=== PATIENT | male | born 1980 | race African-American/Black ===

== ENCOUNTER 2020-10-22 21:48 | Emergency (ER) | payer OTHER, SELFPAY ==
[2020-10-22 22:02] VITALS: BP 153/92; PULSE 114; RESP 20; TEMP 36.2; O2SAT 98; BMI 23.5
--- NOTE | 2020-10-22 22:25 | ED.PSYCH ---
HPI - Psych General Chief Complaint: Psychiatric Symptoms Stated Complaint: crisis Time Seen by Provider: 10/22/20 22:25 Source: patient Mode of arrival: EMS History of Present Illness HPI Narrative: This is a 39-year-old male without significant past medical history but significant psychiatric history of depression and prior suicidal attempt who is brought in by EMS after he presented to the police department stating that he was having suicidal thoughts with plans to cut his wrists. The exacerbating event is that his mother 3 days ago. He states that he was admitted and had a suicidal attempt approximately 2 years ago and was seen at [facility] at that time. He is not currently on antidepressant medications and has no other acute complaints. Related Data Allergies Allergy/AdvReac Type Severity Reaction Status Date / Time seafood Allergy Severe Anaphylaxis Verified 10/22/20 22:18 Review of Systems Review of Systems: Pertinent positives and negatives as stated in HPI 10 point review of systems otherwise negative. PMFSH Past Medical History Source: nursing notes reviewed Social History Social History Alcohol intake: current Alcohol intake frequency: a few times a week Alcohol type: beer Smoking Status: Never smoker Use of substances other than those prescribed or required for medical reasons: No Advance Directives: No Advance Directives Information Provided: Yes Physical Exam Vital Signs: Vital Signs: Last Vital Signs Temp 97.3 F 10/23/20 02:00 Pulse 87 10/23/20 02:00 Resp 18 10/23/20 02:00 BP 152/78 H 10/23/20 02:00 Pulse Ox 97 10/23/20 02:00 Body Mass Index 23.5 VITAL SIGNS: Reviewed. GENERAL: Well developed, well nourished, in no acute distress. OROPHARYNX: no oral lesions noted, posterior pharynx clear NECK: Supple, no adenopathy LUNGS: Normal breath sounds. No adventitious sounds or accessory muscle use. SpO2<98> CARDIOVASCULAR: Regular rate and rhythm without noted murmurs ABDOMEN: Soft, non-tender, non-distended with bowel sounds. SKIN: Inspection of the skin reveals no rashes NEUROLOGIC: Alert and oriented x 4 PSYCH: Tearful, depressive affect Course Course Course Narrative: This is a 39-year-old male with history and clinical presentation consistent with depression and suicidal ideation with a plan to cut his wrist. Patient was placed on one-to-one observation as well as a crisis consult and patient is currently medically cleared for further evaluation by crisis. In addition, a Section 12 was filled out. Sec12, Bed Search, COVID negative. MDM - Psych Lab Data Result diagrams: 10/22/20 22:52 10/22/20 22:52 Labs: Lab Results 10/22/20 10/22/20 10/22/20 Range/Units 22:52 22:52 22:52 WBC 10.6 (4.8-10.8) X10*3/uL RBC 5.29 (4.60-5.80) X10*6/uL Hgb 15.0 (14.0-18.0) g/dl Hct 45.8 (42-52) % MCV 86.6 (80-98) fL MCH 28.4 (27.0-33.0) pg MCHC 32.8 (31.0-36.0) g/dl RDW 13.2 (11.0-16.0) % Plt Count 314 (160-400) X10*3/uL MPV 9.5 (9.4-12.4) fL Immature Gran % (Auto) 0.2 (0.0-0.4) % Neut % (Auto) 79.9 H (45-73) % Lymph % (Auto) 15.3 L (20-40) % [place] % (Auto) 4.3 (2-11) % Eos % (Auto) 0.1 (0-4) % Baso % (Auto) 0.2 (0-2) % Lymph # (Auto) 1.6 (1.2-4.9) X10*3/uL [place] # (Auto) 0.5 (0.1-1.2) X10*3/uL Eos # (Auto) 0.0 (0.0-0.4) X10*3/uL Baso # (Auto) 0.0 (0.0-0.2) X10*3/uL Abs Immat Gran (auto) 0.02 (0.00-0.03) X10*3/uL Absolute Neuts (auto) 8.5 H (2.0-8.3) X10*3/uL Absolute Nucleated RBC 0.000 (0.0-0.012) X10*3/uL Nucleated RBC % (auto) 0.0 (0.0-0.2) /100WBC Sodium 142 (135-145) mmol/L Potassium 3.6 (3.3-5.1) mmol/L Chloride 105 (96-108) mmol/L Carbon Dioxide 27 (22-29) mmol/L Anion Gap 14 (12-20) BUN 7 L (9-16) mg/dL Creatinine 1.05 (0.5-1.4) mg/dL Estim Creat Clear Calc 89.1 Estimated GFR > 60 Random Glucose 79 (60-115) mg/dL Calcium 9.5 (8.4-10.2) mg/dL Total Bilirubin 0.7 (0.0-1.0) mg/dL AST 24 (5-37) U/L ALT 17 (0-40) U/L Alkaline Phosphatase 92 (39-117) U/L Total Protein 7.1 (6.5-8.0) g/dL Albumin 4.5 (3.5-5.0) g/dL Urine Color Urine Appearance Urine pH (5.0-8.0) Ur Specific [place] (1.005-1.025) Urine Protein (NEG-TRACE) MG/DL Urine Glucose (UA) (NEG) MG/DL Urine Ketones (NEG) MG/DL Urine Blood (NEG) Urine Nitrite (NEG) Ur Leukocyte Esterase (NEG) Salicylates < 5.0 L (15-30) mg/dL Urine Opiates Screen (Not Detect) Acetaminophen < 1 (<30) mcg/mL Ur Barbiturates Screen (Not Detect) Ur Phencyclidine Scrn (Not Detect) Ur Amphetamines Screen (Not Detect) U Benzodiazepines Scrn (Not Detect) Urine Cocaine Screen (Not Detect) U Marijuana (THC) Screen (Not Detect) Ethyl Alcohol < 10 mg/dL COVID-19 (SADIA) (Negative) COVID-19 Clin Com 10/23/20 10/23/20 10/23/20 Range/Units 00:56 00:58 00:58 WBC (4.8-10.8) X10*3/uL RBC (4.60-5.80) X10*6/uL Hgb (14.0-18.0) g/dl Hct (42-52) % MCV (80-98) fL MCH (27.0-33.0) pg MCHC (31.0-36.0) g/dl RDW (11.0-16.0) % Plt Count (160-400) X10*3/uL MPV (9.4-12.4) fL Immature Gran % (Auto) (0.0-0.4) % Neut % (Auto) (45-73) % Lymph % (Auto) (20-40) % [place] % (Auto) (2-11) % Eos % (Auto) (0-4) % Baso % (Auto) (0-2) % Lymph # (Auto) (1.2-4.9) X10*3/uL [place] # (Auto) (0.1-1.2) X10*3/uL Eos # (Auto) (0.0-0.4) X10*3/uL Baso # (Auto) (0.0-0.2) X10*3/uL Abs Immat Gran (auto) (0.00-0.03) X10*3/uL Absolute Neuts (auto) (2.0-8.3) X10*3/uL Absolute Nucleated RBC (0.0-0.012) X10*3/uL Nucleated RBC % (auto) (0.0-0.2) /100WBC Sodium (135-145) mmol/L Potassium (3.3-5.1) mmol/L Chloride (96-108) mmol/L Carbon Dioxide (22-29) mmol/L Anion Gap (12-20) BUN (9-16) mg/dL Creatinine (0.5-1.4) mg/dL Estim Creat Clear Calc Estimated GFR Random Glucose (60-115) mg/dL Calcium (8.4-10.2) mg/dL Total Bilirubin (0.0-1.0) mg/dL AST (5-37) U/L ALT (0-40) U/L Alkaline Phosphatase (39-117) U/L Total Protein (6.5-8.0) g/dL Albumin (3.5-5.0) g/dL Urine Color YELLOW Urine Appearance CLEAR Urine pH 7.0 (5.0-8.0) Ur Specific [place] 1.015 (1.005-1.025) Urine Protein NEG (NEG-TRACE) MG/DL Urine Glucose (UA) NEG (NEG) MG/DL Urine Ketones 40 (NEG) MG/DL Urine Blood NEG (NEG) Urine Nitrite NEG (NEG) Ur Leukocyte Esterase NEG (NEG) Salicylates (15-30) mg/dL Urine Opiates Screen Not Detected (Not Detect) Acetaminophen (<30) mcg/mL Ur Barbiturates Screen Not Detected (Not Detect) Ur Phencyclidine Scrn Not Detected (Not Detect) Ur Amphetamines Screen Not Detected (Not Detect) U Benzodiazepines Scrn Not Detected (Not Detect) Urine Cocaine Screen POSITIVE H (Not Detect) U Marijuana (THC) Screen POSITIVE H (Not Detect) Ethyl Alcohol mg/dL COVID-19 (SADIA) Negative (Negative) COVID-19 Clin Com See Note
[2020-10-22 22:57] LABS: MANUAL DIFF FLAG NO
[2020-10-22 22:58] LABS: Basophils Percent Auto 0.2 % (0-2); Eosinophils Percent Auto 0.1 % (0-4); Hematocrit 45.8 % (42-52); Imm Gran Abs Auto 0.02 X10*3/uL (0.00-0.03); Imm Gran Pct Auto 0.2 % (0.0-0.4); Lymphocytes Absolute Auto 1.6 X10*3/uL (1.2-4.9); Lymphocytes Percent Auto 15.3 % (20-40); Mean Corpuscular HGB Conc 32.8 g/dl (31.0-36.0); Mean Corpuscular Hemoglobin 28.4 pg (27.0-33.0); Mean Corpuscular Volume 86.6 fL (80-98); Mean Platelet Volume 9.5 fL (9.4-12.4); Monocytes Absolute Auto 0.5 X10*3/uL (0.1-1.2); Monocytes Percent Auto 4.3 % (2-11); Neutrophils Absolute Auto 8.5 X10*3/uL (2.0-8.3); Neutrophils Percent Auto 79.9 % (45-73); Platelet Count 314 X10*3/uL (160-400); Red Blood Count 5.29 X10*6/uL (4.60-5.80); Red Cell Distribution Width 13.2 % (11.0-16.0); White Blood Count 10.6 X10*3/uL (4.8-10.8)
[2020-10-22 23:25] LABS: Ethanol < 10 mg/dL
[2020-10-22 23:30] LABS: Acetaminophen LAB < 1 mcg/mL (<30); Alanine Aminotransferase 17 U/L (0-40); Albumin Level 4.5 g/dL (3.5-5.0); Alkaline Phosphatase 92 U/L (39-117); Anion Gap 14 (12-20); Aspartate Amino Transferase 24 U/L (5-37); Bilirubin Total 0.7 mg/dL (0.0-1.0); Blood Urea Nitrogen 7 mg/dL (9-16); Calcium 9.5 mg/dL (8.4-10.2); Carbon Dioxide 27 mmol/L (22-29); Chloride 105 mmol/L (96-108); Creatinine Clr Calc Pharmacy 89.1; Estimated Glomerular Filt Rate > 60; Glucose Random 79 mg/dL (60-115); Potassium 3.6 mmol/L (3.3-5.1); Salicylate < 5.0 mg/dL (15-30); Sodium 142 mmol/L (135-145); Total Protein 7.1 g/dL (6.5-8.0)
[2020-10-23 01:07] LABS: Glucose Urine UA NEG (NEG); Leukocyte Esterase Urine NEG (NEG); Nitrite Urine NEG (NEG); Specific Gravity - Urine 1.015 (1.005-1.025); Urine Blood NEG (NEG); Urine Ketones 40 MG/DL (NEG); Urine Protein NEG (NEG-TRACE)
[2020-10-23 01:08] LABS: Appearance Urine CLEAR; Color Urine YELLOW; UACC Culture Trigger NO
[2020-10-23 01:22] LABS: COVID-19 Test Negative (Negative); IDNOW Serial# 9DD0AD1C
[2020-10-23 01:30] LABS: Amphetamine Screen Urine Not Detected (Not Detect); Barbiturates, Urine Not Detected (Not Detect); Benzodiazepines Screen Urine Not Detected (Not Detect); Cannabinoid Screen Urine POSITIVE (Not Detect); Cocaine Screen Urine POSITIVE (Not Detect); Opiate Screen Urine Not Detected (Not Detect); Phencyclidine Screen Urine Not Detected (Not Detect)
[2020-10-23 02:00] VITALS: BP 152/78; PULSE 87; RESP 18; TEMP 36.3; O2SAT 97
[2020-10-23 08:39] VITALS: BP 110/63; PULSE 74; RESP 16; TEMP 36.6; O2SAT 99
[2020-10-23 12:25] VITALS: BP 112/68; PULSE 72; RESP 16; TEMP 37.1; O2SAT 98
[2020-10-23 14:53] VITALS: BP 101/53; PULSE 68; RESP 16; TEMP 37.1; O2SAT 97
--- NOTE | 2020-10-23 17:23 | PC.NURSE ---
N requested labs and nurses notes to be faxed to them. Information faxed as requested
[2020-10-23 17:51] VITALS: BP 103/72; PULSE 70; RESP 18; TEMP 37.3; O2SAT 98
[2020-10-23 20:39] VITALS: BP 101/62; PULSE 74; RESP 18; TEMP 37.1; O2SAT 98
--- NOTE | 2020-10-23 22:57 | PC.NURSE ---
Pt resting throughout the evening and had denied any/all complaints. Pt eating and drinking throughout the evening. Pt now awake, expressing frustration that he remains in the culver without a bed. Pt states People who have got here after me have gone up, I'm just sitting here with the lights in my eyes! I can't take it anymore!! [address] RN at this time.
--- NOTE | 2020-10-23 23:23 | PC.NURSE ---
Report received. PT is sleeping in bed. Respirations even and unlabored. Inpatient bed search in progress
--- NOTE | 2020-10-24 09:51 | PC.NURSE ---
aptu to call for nurse to nurse
--- NOTE | 2020-10-24 10:30 | PC.NURSE ---
pt aware of plan of care, resting quietly no obvious distress
--- NOTE | 2020-10-24 10:48 | PC.NURSE ---
report given to aptu at [facility] to martin yanez. requesting section 12 prior to arrival time.
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
--- NOTE | 2020-10-24 13:51 | PC.NURSE ---
report of this patient was called to act 2 by vazquez salazar
== END 2020-10-24 13:51 | disposition skilled nursing facility (03) ==
PROVIDERS: Emergency Provider Student in an Organized Health Care Education/Training Program
DX: F32.9 Major depressive disorder, single episode, unspecified (principal); R45.851 Suicidal ideations; Z72.89 Other problems related to lifestyle; Z63.4 Disappearance and death of family member; Z91.5 Personal history of self-harm; Z20.822 Contact with and (suspected) exposure to COVID-19
CPT/HCPCS: 36415; 80053; 80143; 80179; 80307; 80320; 81003; 85025; 87635; 99285

== ENCOUNTER 2023-01-21 23:00 | Inpatient (IN) | payer OTHER, SELFPAY ==
[2023-01-21 23:15] VITALS: BP 123/68; PULSE 74; RESP 16; TEMP 36.4; O2SAT 99
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
[2023-01-22 09:56] LABS: Estimated Average Glucose 108 mg/dL; Hemoglobin A1c % 5.4 %
[2023-01-22 09:57] VITALS: BP 125/74; PULSE 72; RESP 16; TEMP 37.7; O2SAT 96
[2023-01-22 10:30] LABS: Alanine Aminotransferase 40 U/L (0-40); Alkaline Phosphatase 155 U/L (39-117); Anion Gap 10 (12-20); Aspartate Amino Transferase 26 U/L (5-37); Bilirubin Total 0.4 mg/dL (0.0-1.0); Blood Urea Nitrogen 7 mg/dL (9-16); Calcium 9.6 mg/dL (8.4-10.2); Carbon Dioxide 26 mmol/L (22-29); Chloride 109 mmol/L (96-108); Cholesterol 167 mg/dL; Estimated Glomerular Filt Rate > 60; Glucose Fasting 95 mg/dL (60-99); HDL Cholesterol 68 mg/dL; LDL Cholesterol Calculated 86 mg/dl; Potassium 4.7 mmol/L (3.3-5.1); Sodium 140 mmol/L (135-145); Total Protein 6.8 g/dL (6.5-8.0); Triglycerides 68 mg/dL
[2023-01-22] MEDS: Acetaminophen 325 MG TABLET 650 MG PO (10:33)
[2023-01-22] MEDS: LORazepam 1 MG TABLET PO ×2 (10:33→20:13)
[2023-01-22 10:53] LABS: Folate 12.3 ng/mL (> or = 4.0); Free T4 (Free Thyroxine) 0.75 ng/dL (0.71-1.85); Thyroid Stimulating Hormone 0.59 uIU/mL (0.32-4.0); Vitamin B12 219 pg/mL (200-900)
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
--- NOTE | 2023-01-22 13:50 | P.HPPS_ITS ---
HPI Date of Service: 01/22/23 Chief Complaint: Major Depressive D/O, Cocaine Use D/O, Cannabis Sources of Information: patient interviewed, chart reviewed and crisis/core team assessment reviewed HPI Subjective Notes: Betancourt Warning and Conditional Voluntary Healthcare Proxy: No Guardianship: No Medical Problems Affecting Mental Status: No Narrative: 42 yo male, hx of depression, polysubstance addiction, transfer from [facility] with an increase in SI with a plan to cut himself. Reports an increase in sx ~16 days. Currently off meds. Reports heroin-1.5 bundles daily, fentanyl, cocaine, alcohol use. States he is homeless, has been living on the [address] since he left mother's home. Reports allergy sx with congestion and is hearing the voice of his grandmother. Pt seen in bed today. He is in withdrawal and has URI/Allergy sx. He asks for a consult for Methadone initiation. Reports hx of sydnie with impulsivity, elevation of mood, rapid speech and racing of thoughts. Currently with anergy, anhedonia Past Psychiatric History: IP: Reports several, mostly with [facility], [facility] OP: None currently SA: Several Medical Evaluation Reviewed: Hospitalist Bulmaro Pending [facility] Medical History (Updated 01/22/23 @ 18:06 by Mitzy Rosas, NILDA) Cannabis use disorder Cocaine use disorder Mood disorder Opioid use disorder Family History: Depression Substance History: Heroin- 1.5 bundles daily cocaine- 09/22th daily Nicotine Toxicology positvie for barbiturate and cannabis. Trauma History: Affirms Diagnostics Vital Signs (24Hr): Vital Signs - 24 hr 01/21/23 23:15 01/22/23 09:57 Temperature 97.6 F 100 F Pulse Rate 74 72 Respiratory Rate 16 16 Blood Pressure 123/68 125/74 Pulse Oximetry 99 96 Oxygen Delivery Method Room Air Room Air Labs 01/22/23 08:57 Labs: Laboratory Results - last 48 hr 01/22/23 01/22/23 08:57 08:57 Sodium 140 Potassium 4.7 D Chloride 109 H Carbon Dioxide 26 Anion Gap 10 L BUN 7 L Creatinine 0.87 Estim Creat Clear Calc TNP Estimated GFR > 60 Fasting Glucose 95 Estimat Average Glucose 108 Hemoglobin A1c % 5.4 Calcium 9.6 Total Bilirubin 0.4 AST 26 ALT 40 Alkaline Phosphatase 155 H Total Protein 6.8 Albumin 4.0 Triglycerides 68 Cholesterol 167 LDL Cholesterol, Calc 86 HDL Cholesterol 68 Vitamin B12 219 Folate 12.3 TSH 0.59 Free T4 0.75 Meds/Allergies Meds Home Medications Medication Instructions Recorded Confirmed Type No Known Home Meds 10/23/20 01/22/23 History Allergies Allergies Allergy/AdvReac Type Severity Reaction Status Date / Time seafood Allergy Severe Anaphylaxis Verified 10/22/20 22:18 Mental Status Exam Mental Status Exam Patient Appearance: Fatigued Patient Orientation: Person, Place, Time and Situation Level of Consciousness: Alert Patient Behavior: Appropriate, Talkative, Cooperative and Good Eye Contact Mood Description: Depressed Affect Description: Flat Patient Cognition Impaired: No Ability to Follow Directions: Good Speech Pattern: Spontaneous Speech Memory Description: Intact Hallucinations: Auditory Delusions: Paranoid Ideation and Present Perceptual Disturbances: Depersonalization and Derealization Thought Process: Rumination Thought Content: positive for Circumstantial and positive for Suicidal Ideation Depressive Symptoms: Increased Anxiety, Hopelessness, Unhappiness, Thoughts of /Suicide and Difficulty Concentrating Judgement: Fair Assessment & Plan Assessment & Plan (1) Mood disorder: Status: Acute Code(s): F39 - Unspecified mood [affective] disorder (2) Opioid use disorder: Status: Acute Code(s): F11.90 - Opioid use, unspecified, uncomplicated (3) Cocaine use disorder: Status: Acute Code(s): F14.10 - Cocaine abuse, uncomplicated (4) Cannabis use disorder: Status: Acute Code(s): F12.90 - Cannabis use, unspecified, uncomplicated Plan 42 yo male, hx of polysubstance use d/o, mood disorder with psychotic features vs substance induced psychosis with SI and homelessness. Pt asks for consult to begin Methadone, to go to [facility] and review medications. Plan: Continue current regime Complete detox, evaluate efficacy of regime Addiction consult- pt wanting to return to Methadone CIWA, Lorazepam prn Thiamine, Folic Acid and MVI Claritin 10 mg daily Aftercare planning, ?CSS Patient educated on: medication risk/benefits, therapeutic strategies and medical condition Informed Consent: understands Reason for continued inpatient stay Substantial Risk for: harm to self, inability to function, rapid decompensation and med/psych decompensation Statement Statement: I have reviewed the history and physical and performed a pertinent examination on my patient. No changes have occurred unless specified. If the History and Physical was not performed prior to admission, the Hospitalist's service will be consulted for completing the admission physical. Time Spent With Patient Time: Total time managing care of this patient today ____ minutes.
[2023-01-22] MEDS: Loratadine 10 MG TABLET PO (14:57)
[2023-01-22 17:00] VITALS: BP 121/69; PULSE 88; RESP 16; TEMP 37.2; O2SAT 97
[2023-01-22] MEDS: traZODone HCL 50 MG TABLET PO (20:13)
[2023-01-22] MEDS: Mirtazapine 15 MG TABLET PO (20:13)
[2023-01-23] MEDS: Multivitamin TABLET 1 TAB PO (08:27)
[2023-01-23] MEDS: Loratadine 10 MG TABLET PO (08:27)
[2023-01-23] MEDS: Thiamine HCL 100 MG TABLET PO (08:27)
[2023-01-23] MEDS: Folic Acid 1 MG TABLET PO (08:27)
[2023-01-23 08:43] VITALS: BP 126/78; PULSE 80; RESP 16; TEMP 37; O2SAT 99
--- NOTE | 2023-01-23 08:56 | MHC.RECOVRN ---
Met with pt in 511 after consult placed to Addiction Medicine for pt request to initiate methadone. Pt laying in bed, difficult to engage in conversation, irritable. Pt appears to be comfortable physically, however, continually pulls sheets over face during conversation. Pt reports using heroin, 1-1.5 bundles daily, IN, denies using other substances. Reports last use was 3-4 days ago. Pt states I'm sick. My whole body hurts. Pt reports hx methadone, [address] [facility]. Pt denies hx Suboxone, when asked if interested pt states I don't care. T/w spoke with nursing at [facility] pt had been receiving 60 mg take home bottles, last on 02/21/22 with doses through 02/27/22. Pt became inactive in May 2022. Discussed with pts RN, who reports pt reported nausea yesterday but has not witnessed other OWS. Ricarda Washburn APRN, aware.
--- NOTE | 2023-01-23 10:10 | HO.PSYCHPN ---
Subjective Subjective Date of Service: 01/23/23 Reason For Visit: Major Depressive D/O, Cocaine Use D/O, Cannabis Subjective Notes: Conditional Voluntary Healthcare Proxy: No Guardianship: No Medical Problems Affecting Mental Status: No Interim History: Reports feeling improved. Began Methadone today with consult from Addictions team. Discussing CSS requests. Medication review, symptom review. Will increase Mirtazapine. Reviewed substance use history. Currently a ~24 month opiate addiction 1.5 bundles daily. Beginning to interact in the milieu with peers. Reports feeling safe and supported. Medication Compliance: Yes Side effects from medications: No Attending Groups: Yes Review of Systems Acute medical concerns: No Medical Review of Systems: unchanged Mental Status Exam Mental Status Exam Patient Appearance: Appropriate Patient Orientation: Person, Place, Time and Situation Level of Consciousness: Alert Patient Behavior: Appropriate, Talkative, Cooperative and Good Eye Contact Mood Description: Constricted Affect Description: Constricted Patient Cognition Impaired: No Ability to Follow Directions: Good Speech Pattern: Spontaneous Speech Memory Description: Intact Hallucinations: None Delusions: Not Present Thought Process: Intact and Goal Oriented Thought Content: positive for Intact, positive for [place], positive for Circumstantial and positive for Suicidal Ideation (denies today) Depressive Symptoms: Muscle Pain, Increased Fatigue and Loss of Energy Judgement: Good Diagnostics Vital Signs (24Hr): Vital Signs - 24 hr 01/22/23 17:00 01/23/23 08:43 Temperature 98.9 F 98.6 F Pulse Rate 88 80 Respiratory Rate 16 16 Blood Pressure 121/69 126/78 Pulse Oximetry 97 99 Oxygen Delivery Method Room Air Room Air Labs 01/22/23 08:57 Labs: Laboratory Results - last 48 hr 01/22/23 01/22/23 08:57 08:57 Sodium 140 Potassium 4.7 D Chloride 109 H Carbon Dioxide 26 Anion Gap 10 L BUN 7 L Creatinine 0.87 Estim Creat Clear Calc TNP Estimated GFR > 60 Fasting Glucose 95 Estimat Average Glucose 108 Hemoglobin A1c % 5.4 Calcium 9.6 Total Bilirubin 0.4 AST 26 ALT 40 Alkaline Phosphatase 155 H Total Protein 6.8 Albumin 4.0 Triglycerides 68 Cholesterol 167 LDL Cholesterol, Calc 86 HDL Cholesterol 68 Vitamin B12 219 Folate 12.3 TSH 0.59 Free T4 0.75 Medications Medications Current Medications Acetaminophen (Acetaminophen 325 Mg Tablet) 650 mg PO Q6H PRN PRN Reason: Headache/Pain Mild Scale (1-3) Last Admin: 01/22/23 10:33 Dose: 650 mg Al Hydroxide/Mg Hydroxide (Magnesium Hydrox/Alum Hydrox 30 Ml Oral.Susp) 30 ml PO Q6H PRN PRN Reason: Heartburn/Nausea Clonidine HCl (Clonidine Hcl 0.1 Mg Tablet) 0.1 mg PO Q2H PRN; Protocol PRN Reason: SBP > 150 Dicyclomine HCl (Dicyclomine Hcl 10 Mg Capsule) 10 mg PO QIDACHS PRN PRN Reason: cramping Folic Acid (Folic Acid 1 Mg Tablet) 1 mg PO DAILY COUNTS INCLUDE 234 BEDS AT THE [facility] Last Admin: 01/23/23 08:27 Dose: 1 mg Hydroxyzine HCl (Hydroxyzine Hcl 25 Mg Tablet) 25 mg PO Q6H PRN PRN Reason: Anxiety Ibuprofen (Ibuprofen 800 Mg Tablet) 800 mg PO Q8H PRN PRN Reason: aches/pains Loratadine (Loratadine 10 Mg Tablet) 10 mg PO DAILY COUNTS INCLUDE 234 BEDS AT THE [facility] Last Admin: 01/23/23 08:27 Dose: 10 mg Lorazepam (Lorazepam 1 Mg Tablet) 1 mg PO Q4H PRN PRN Reason: withdrawal sx Last Admin: 01/22/23 20:13 Dose: 1 mg Magnesium Hydroxide (Milk Of Magnesia 30 Ml Oral.Susp) 30 ml PO DAILY PRN PRN Reason: Constipation Mirtazapine (Mirtazapine 15 Mg Tablet) 15 mg PO BEDTIME COUNTS INCLUDE 234 BEDS AT THE [facility] Last Admin: 01/22/23 20:13 Dose: 15 mg Multivitamins/Vitamin C (Multivitamin Tablet) 1 tab PO DAILY COUNTS INCLUDE 234 BEDS AT THE [facility] Last Admin: 01/23/23 08:27 Dose: 1 tab Nicotine Polacrilex (Nicotine Polacrilex 2 Mg Gum) 4 mg BUCCAL Q2H PRN PRN Reason: Nicotine Cravings Thiamine HCl (Thiamine Hcl 100 Mg Tablet) 100 mg PO DAILY COUNTS INCLUDE 234 BEDS AT THE [facility] Last Admin: 01/23/23 08:27 Dose: 100 mg Trazodone HCl (Trazodone Hcl 50 Mg Tablet) 50 mg PO BEDTIME MRX1 PRN PRN Reason: Insomnia Last Admin: 01/22/23 20:13 Dose: 50 mg Allergies Allergies Allergy/AdvReac Type Severity Reaction Status Date / Time seafood Allergy Severe Anaphylaxis Verified 10/22/20 22:18 Assessment & Plan Assessment & Plan (1) Mood disorder: Status: Acute Code(s): F39 - Unspecified mood [affective] disorder (2) Opioid use disorder: Status: Acute Code(s): F11.90 - Opioid use, unspecified, uncomplicated (3) Cocaine use disorder: Status: Acute Code(s): F14.10 - Cocaine abuse, uncomplicated (4) Cannabis use disorder: Status: Acute Code(s): F12.90 - Cannabis use, unspecified, uncomplicated Plan 42 yo male, hx of polysubstance use d/o, mood disorder with psychotic features vs substance induced psychosis with SI and homelessness. Pt asks for consult to begin Methadone, to go to [facility] and review medications. Plan: Continue current regime Complete detox, evaluate efficacy of regime Addiction consult- pt wanting to return to Methadone CIWA, Lorazepam prn Thiamine, Folic Acid and MVI Claritin 10 mg daily Aftercare planning, ?CSS 01/23/23: Increase Mirtazapine to 22.5 mg HS Patient educated on: medication risk/benefits and therapeutic strategies Informed Consent: understands Reason for continued inpatient stay Substantial Risk for: rapid decompensation Time Spent With Patient Time: Total time managing care of this patient today ____ minutes.
[2023-01-23] MEDS: methADONE HCl 20 MG/2 ML ORAL.CONC PO (10:50)
[2023-01-23 11:33] LABS: Amphetamine Screen Urine Not Detected (Not Detect); Barbiturates, Urine Not Detected (Not Detect); Benzodiazepines Screen Urine Not Detected (Not Detect); Cannabinoid Screen Urine POSITIVE (Not Detect); Cocaine Screen Urine POSITIVE (Not Detect); Fentanyl, urine POSITIVE (Not Detect); Opiate Screen Urine Not Detected (Not Detect); Phencyclidine Screen Urine Not Detected (Not Detect)
[2023-01-23] MEDS: cloNIDine HCL 0.1 MG TABLET PO (12:48)
[2023-01-23 12:49] VITALS: BP 170/112; PULSE 112
--- NOTE | 2023-01-23 13:12 | MHC.RECOVRN ---
Met with pt to follow up after methadone initiation. Pt reports feeling much better, denies withdrawal symptoms, is alert, easily engages in conversation, very pleasant. Pt reports desire to continue methadone titration and return to [facility]. Pts preference for placement after C is [facility] in [place] but is willing to go to any residential program. Pt reports having been in recovery for a period of time last year while at [facility], was working and doing well. Pt reports he lost his job which in turn created distress and led to pts recurrence at the end of the year. Pt states I didn't talk to anyone like I should have, I tried to handle it on my own. Pt future oriented and looking forward to recovery. Pt denies questions or concerns at this time. Discussed with Ricarda Washburn APRN.
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
[2023-01-23 16:16] VITALS: RESP 16
[2023-01-23] MEDS: traZODone HCL 50 MG TABLET PO (19:17)
[2023-01-23] MEDS: LORazepam 1 MG TABLET PO (19:17)
[2023-01-23] MEDS: hydrOXYzine HCL 25 MG TABLET PO (19:18)
[2023-01-23] MEDS: Mirtazapine 7.5 MG TABLET 22.5 MG PO (19:18)
[2023-01-24] MEDS: Multivitamin TABLET 1 TAB PO (08:31)
[2023-01-24] MEDS: Folic Acid 1 MG TABLET PO (08:31)
[2023-01-24] MEDS: Loratadine 10 MG TABLET PO (08:31)
[2023-01-24] MEDS: methADONE HCl 20 MG/2 ML ORAL.CONC 30 MG PO (08:31)
[2023-01-24] MEDS: Thiamine HCL 100 MG TABLET PO (08:31)
[2023-01-24 08:34] VITALS: BP 117/60; PULSE 71; RESP 18; TEMP 37.3; O2SAT 100
--- NOTE | 2023-01-24 08:57 | HO.PSYCHPN ---
Subjective Subjective Date of Service: 01/24/23 Reason For Visit: Major Depressive D/O, Cocaine Use D/O, Cannabis Subjective Notes: Conditional Voluntary Healthcare Proxy: No Guardianship: No Interim History: Pt seen reviewed with team He reports feeling improved. Interactive with peers and in the milieu. Finds Methadone helpful in sx mgt. Medication Compliance: Yes Side effects from medications: No Attending Groups: Intermittent Review of Systems Acute medical concerns: No Mental Status Exam Mental Status Exam Patient Appearance: Appropriate Patient Orientation: Person, Place, Time and Situation Level of Consciousness: Alert Patient Behavior: Appropriate, Talkative, Cooperative and Good Eye Contact Mood Description: Constricted Affect Description: Constricted Patient Cognition Impaired: No Ability to Follow Directions: Good Speech Pattern: Spontaneous Speech Memory Description: Intact Hallucinations: None Delusions: Not Present Thought Process: Intact and Goal Oriented Thought Content: positive for Intact, positive for [place], positive for Circumstantial and positive for Suicidal Ideation (denies today) Depressive Symptoms: Muscle Pain, Increased Fatigue and Loss of Energy Judgement: Good Diagnostics Vital Signs (24Hr): Vital Signs - 24 hr 01/23/23 12:49 01/23/23 16:16 01/24/23 08:34 Temperature 99.1 F Pulse Rate 112 H 71 Respiratory Rate 16 18 Blood Pressure 170/112 H 117/60 Pulse Oximetry 100 Oxygen Delivery Method Room Air Labs 01/22/23 08:57 Labs: Laboratory Results - last 48 hr 01/22/23 01/22/23 01/23/23 08:57 08:57 11:09 Sodium 140 Potassium 4.7 D Chloride 109 H Carbon Dioxide 26 Anion Gap 10 L BUN 7 L Creatinine 0.87 Estim Creat Clear Calc TNP Estimated GFR > 60 Fasting Glucose 95 Estimat Average Glucose 108 Hemoglobin A1c % 5.4 Calcium 9.6 Total Bilirubin 0.4 AST 26 ALT 40 Alkaline Phosphatase 155 H Total Protein 6.8 Albumin 4.0 Triglycerides 68 Cholesterol 167 LDL Cholesterol, Calc 86 HDL Cholesterol 68 Vitamin B12 219 Folate 12.3 TSH 0.59 Free T4 0.75 Urine Opiates Screen Not Detected Urine Fentanyl Screen POSITIVE H Ur Barbiturates Screen Not Detected Ur Phencyclidine Scrn Not Detected Ur Amphetamines Screen Not Detected U Benzodiazepines Scrn Not Detected Urine Cocaine Screen POSITIVE H U Marijuana (THC) Screen POSITIVE H Medications Medications Current Medications Acetaminophen (Acetaminophen 325 Mg Tablet) 650 mg PO Q6H PRN PRN Reason: Headache/Pain Mild Scale (1-3) Last Admin: 01/22/23 10:33 Dose: 650 mg Al Hydroxide/Mg Hydroxide (Magnesium Hydrox/Alum Hydrox 30 Ml Oral.Susp) 30 ml PO Q6H PRN PRN Reason: Heartburn/Nausea Clonidine HCl (Clonidine Hcl 0.1 Mg Tablet) 0.1 mg PO Q2H PRN; Protocol PRN Reason: SBP > 150 Last Admin: 01/23/23 12:48 Dose: 0.1 mg Dicyclomine HCl (Dicyclomine Hcl 10 Mg Capsule) 10 mg PO QIDACHS PRN PRN Reason: cramping Folic Acid (Folic Acid 1 Mg Tablet) 1 mg PO DAILY [facility] Last Admin: 01/24/23 08:31 Dose: 1 mg Hydroxyzine HCl (Hydroxyzine Hcl 25 Mg Tablet) 25 mg PO Q6H PRN PRN Reason: Anxiety Last Admin: 01/23/23 19:18 Dose: 25 mg Ibuprofen (Ibuprofen 800 Mg Tablet) 800 mg PO Q8H PRN PRN Reason: aches/pains Loratadine (Loratadine 10 Mg Tablet) 10 mg PO DAILY [facility] Last Admin: 01/24/23 08:31 Dose: 10 mg Lorazepam (Lorazepam 1 Mg Tablet) 1 mg PO Q4H PRN PRN Reason: withdrawal sx Last Admin: 01/23/23 19:17 Dose: 1 mg Magnesium Hydroxide (Milk Of Magnesia 30 Ml Oral.Susp) 30 ml PO DAILY PRN PRN Reason: Constipation Methadone HCl (Methadone Hcl 20 Mg/2 Ml Oral.Conc) 30 mg PO DAILY [facility] Last Admin: 01/24/23 08:31 Dose: 30 mg Mirtazapine (Mirtazapine 7.5 Mg Tablet) 22.5 mg PO BEDTIME [facility] Last Admin: 01/23/23 19:18 Dose: 22.5 mg Multivitamins/Vitamin C (Multivitamin Tablet) 1 tab PO DAILY [facility] Last Admin: 01/24/23 08:31 Dose: 1 tab Nicotine Polacrilex (Nicotine Polacrilex 2 Mg Gum) 4 mg BUCCAL Q2H PRN PRN Reason: Nicotine Cravings Thiamine HCl (Thiamine Hcl 100 Mg Tablet) 100 mg PO DAILY [facility] Last Admin: 01/24/23 08:31 Dose: 100 mg Trazodone HCl (Trazodone Hcl 50 Mg Tablet) 50 mg PO BEDTIME MRX1 PRN PRN Reason: Insomnia Last Admin: 01/23/23 19:17 Dose: 50 mg Allergies Allergies Allergy/AdvReac Type Severity Reaction Status Date / Time seafood Allergy Severe Anaphylaxis Verified 10/22/20 22:18 Assessment & Plan Assessment & Plan (1) Mood disorder: Status: Acute Code(s): F39 - Unspecified mood [affective] disorder (2) Opioid use disorder: Status: Acute Code(s): F11.90 - Opioid use, unspecified, uncomplicated (3) Cocaine use disorder: Status: Acute Code(s): F14.10 - Cocaine abuse, uncomplicated (4) Cannabis use disorder: Status: Acute Code(s): F12.90 - Cannabis use, unspecified, uncomplicated Plan 42 yo male, hx of polysubstance use d/o, mood disorder with psychotic features vs substance induced psychosis with SI and homelessness. Pt asks for consult to begin Methadone, to go to [facility] and review medications. Plan: Continue current regime Complete detox, evaluate efficacy of regime Addiction consult- pt wanting to return to Methadone CIWA, Lorazepam prn Thiamine, Folic Acid and MVI Claritin 10 mg daily Aftercare planning, ?CSS 01/23/23: Increase Mirtazapine to 22.5 mg HS 01/24/23: Continue current regime and plan of care Patient educated on: medication risk/benefits and therapeutic strategies Informed Consent: understands Reason for continued inpatient stay Substantial Risk for: rapid decompensation Time Spent With Patient Time: Total time managing care of this patient today ____ minutes.
[2023-01-24] MEDS: Ibuprofen 800 MG TABLET PO (10:30)
[2023-01-24] MEDS: LORazepam 1 MG TABLET PO ×3 (10:30→19:39)
[2023-01-24] MEDS: Cyclobenzaprine HCl 10 MG TABLET PO (17:38)
[2023-01-24 18:00] VITALS: BP 146/69; PULSE 89; TEMP 36.4; O2SAT 99
[2023-01-24] MEDS: Mirtazapine 7.5 MG TABLET 22.5 MG PO (19:36)
[2023-01-24] MEDS: traZODone HCL 50 MG TABLET PO (19:36)
[2023-01-25] MEDS: Loratadine 10 MG TABLET PO (08:17)
[2023-01-25] MEDS: methADONE HCl 20 MG/2 ML ORAL.CONC 30 MG PO (08:17)
[2023-01-25] MEDS: Thiamine HCL 100 MG TABLET PO (08:17)
[2023-01-25] MEDS: Multivitamin TABLET 1 TAB PO (08:17)
[2023-01-25] MEDS: Folic Acid 1 MG TABLET PO (08:18)
[2023-01-25 09:10] VITALS: BP 107/62; PULSE 77; RESP 18; TEMP 36.2; O2SAT 100
--- NOTE | 2023-01-25 10:35 | PM.EVENT ---
Event Note Date of Service: 01/25/23 Event Note: chart reviewed-- methadone 10mg now methadone 45mg in AM Time Spent With Patient Time: Total time managing care of this patient today ____ minutes.
[2023-01-25] MEDS: methADONE HCl 20 MG/2 ML ORAL.CONC 10 MG PO (11:07)
[2023-01-25] MEDS: LORazepam 1 MG TABLET PO ×2 (14:49→20:23)
--- NOTE | 2023-01-25 17:48 | HO.PSYCHPN ---
Subjective Subjective Date of Service: 01/25/23 Reason For Visit: Major Depressive D/O, Cocaine Use D/O, Cannabis Subjective Notes: Conditional Voluntary Healthcare Proxy: No Guardianship: No Medical Problems Affecting Mental Status: No Interim History: Pt seen, reviewed in team. Team report some difficulty with sleep. Pt denies, states at times by history he has done sleep walking, but believes he slept well and is feeling rested and well. Medication Compliance: Yes Side effects from medications: No Attending Groups: Intermittent Review of Systems Acute medical concerns: No Medical Review of Systems: unchanged Mental Status Exam Mental Status Exam Patient Appearance: Appropriate Patient Orientation: Person, Place, Time and Situation Level of Consciousness: Alert Patient Behavior: Appropriate, Talkative, Cooperative and Good Eye Contact Mood Description: Constricted Affect Description: Constricted Patient Cognition Impaired: No Ability to Follow Directions: Good Speech Pattern: Spontaneous Speech Memory Description: Intact Hallucinations: None Delusions: Not Present Thought Process: Intact and Goal Oriented Thought Content: positive for Intact, positive for [place], positive for Circumstantial and positive for Suicidal Ideation (denies today) Depressive Symptoms: Muscle Pain, Increased Fatigue and Loss of Energy Judgement: Good Diagnostics Vital Signs (24Hr): Vital Signs - 24 hr 01/24/23 18:00 01/25/23 09:10 Temperature 97.5 F 97.1 F Pulse Rate 89 77 Respiratory Rate 18 Blood Pressure 146/69 H 107/62 Pulse Oximetry 99 100 Oxygen Delivery Method Room Air Room Air Labs 01/22/23 08:57 Medications Medications Current Medications Acetaminophen (Acetaminophen 325 Mg Tablet) 650 mg PO Q6H PRN PRN Reason: Headache/Pain Mild Scale (1-3) Last Admin: 01/22/23 10:33 Dose: 650 mg Al Hydroxide/Mg Hydroxide (Magnesium Hydrox/Alum Hydrox 30 Ml Oral.Susp) 30 ml PO Q6H PRN PRN Reason: Heartburn/Nausea Clonidine HCl (Clonidine Hcl 0.1 Mg Tablet) 0.1 mg PO Q2H PRN; Protocol PRN Reason: SBP > 150 Last Admin: 01/23/23 12:48 Dose: 0.1 mg Cyclobenzaprine HCl (Cyclobenzaprine Hcl 10 Mg Tablet) 10 mg PO BID PRN PRN Reason: Muscle Spasm Last Admin: 01/24/23 17:38 Dose: 10 mg Dicyclomine HCl (Dicyclomine Hcl 10 Mg Capsule) 10 mg PO QIDACHS PRN PRN Reason: cramping Folic Acid (Folic Acid 1 Mg Tablet) 1 mg PO DAILY [facility] Last Admin: 01/25/23 08:18 Dose: 1 mg Hydroxyzine HCl (Hydroxyzine Hcl 25 Mg Tablet) 25 mg PO Q6H PRN PRN Reason: Anxiety Last Admin: 01/23/23 19:18 Dose: 25 mg Ibuprofen (Ibuprofen 800 Mg Tablet) 800 mg PO Q8H PRN PRN Reason: aches/pains Last Admin: 01/24/23 10:30 Dose: 800 mg Loratadine (Loratadine 10 Mg Tablet) 10 mg PO DAILY [facility] Last Admin: 01/25/23 08:17 Dose: 10 mg Lorazepam (Lorazepam 1 Mg Tablet) 1 mg PO Q4H PRN PRN Reason: withdrawal sx Last Admin: 01/25/23 14:49 Dose: 1 mg Magnesium Hydroxide (Milk Of Magnesia 30 Ml Oral.Susp) 30 ml PO DAILY PRN PRN Reason: Constipation Methadone HCl (Methadone Hcl 20 Mg/2 Ml Oral.Conc) 45 mg PO DAILY [facility] Mirtazapine (Mirtazapine 7.5 Mg Tablet) 22.5 mg PO BEDTIME [facility] Last Admin: 01/24/23 19:36 Dose: 22.5 mg Multivitamins/Vitamin C (Multivitamin Tablet) 1 tab PO DAILY [facility] Last Admin: 01/25/23 08:17 Dose: 1 tab Nicotine Polacrilex (Nicotine Polacrilex 2 Mg Gum) 4 mg BUCCAL Q2H PRN PRN Reason: Nicotine Cravings Thiamine HCl (Thiamine Hcl 100 Mg Tablet) 100 mg PO DAILY [facility] Last Admin: 01/25/23 08:17 Dose: 100 mg Trazodone HCl (Trazodone Hcl 50 Mg Tablet) 50 mg PO BEDTIME MRX1 PRN PRN Reason: Insomnia Last Admin: 01/24/23 19:36 Dose: 50 mg Allergies Allergies Allergy/AdvReac Type Severity Reaction Status Date / Time seafood Allergy Severe Anaphylaxis Verified 10/22/20 22:18 Assessment & Plan Assessment & Plan (1) Mood disorder: Status: Acute Code(s): F39 - Unspecified mood [affective] disorder (2) Opioid use disorder: Status: Acute Code(s): F11.90 - Opioid use, unspecified, uncomplicated (3) Cocaine use disorder: Status: Acute Code(s): F14.10 - Cocaine abuse, uncomplicated (4) Cannabis use disorder: Status: Acute Code(s): F12.90 - Cannabis use, unspecified, uncomplicated Plan 42 yo male, hx of polysubstance use d/o, mood disorder with psychotic features vs substance induced psychosis with SI and homelessness. Pt asks for consult to begin Methadone, to go to [facility] and review medications. Plan: Continue current regime Complete detox, evaluate efficacy of regime Addiction consult- pt wanting to return to Methadone CIWA, Lorazepam prn Thiamine, Folic Acid and MVI Claritin 10 mg daily Aftercare planning, ?[facility] 01/23/23: Increase Mirtazapine to 22.5 mg HS 01/25/23: Continue current regime and plan of care. Patient educated on: medication risk/benefits Informed Consent: understands Reason for continued inpatient stay Substantial Risk for: rapid decompensation Time Spent With Patient Time: Total time managing care of this patient today ____ minutes.
[2023-01-25 18:00] VITALS: BP 127/69; PULSE 98; RESP 18; TEMP 35.8; O2SAT 98
[2023-01-25] MEDS: Mirtazapine 7.5 MG TABLET 22.5 MG PO (20:23)
[2023-01-25] MEDS: Cyclobenzaprine HCl 10 MG TABLET PO (20:23)
[2023-01-25] MEDS: traZODone HCL 50 MG TABLET PO (20:23)
[2023-01-26 08:20] VITALS: BP 131/71; PULSE 89; RESP 16; TEMP 36.6; O2SAT 98
[2023-01-26] MEDS: Thiamine HCL 100 MG TABLET PO (08:33)
[2023-01-26] MEDS: Loratadine 10 MG TABLET PO (08:33)
[2023-01-26] MEDS: Multivitamin TABLET 1 TAB PO (08:33)
[2023-01-26] MEDS: Folic Acid 1 MG TABLET PO (08:33)
[2023-01-26] MEDS: methADONE HCl 20 MG/2 ML ORAL.CONC 45 MG PO (08:34)
[2023-01-26] MEDS: hydrOXYzine HCL 25 MG TABLET PO (10:03)
[2023-01-26] MEDS: Cyclobenzaprine HCl 10 MG TABLET PO (10:03)
--- NOTE | 2023-01-26 10:24 | P.PNPSI_ITS ---
Subjective Subjective Date of Service: 01/26/23 Reason For Visit: Major Depressive D/O, Cocaine Use D/O, Cannabis Interim History: Met with patient; discussed with team; reviewed notes Patient acting a little strange, shadow boxing in the culver or pretending to play basketball however when talking to him looks sedated; initially patient would not answer proposal manager writer's questions and said he wanted to wait until primary provider returned however he later came up to proposal manager writer and said that he is feeling sad and that it is very hard to deal with. Agrees to increasing Remeron however given manicky/psychoticish/disorganized behavior will hold off on increasing for now Staff reports patient was up most of the night; given behaviors and sedation some concern that patient may have used contra Ban on the unit however he has not had any visitors. Ordered UDS drug screen with quantitative analysis Mental Status Exam Mental Status Exam Narrative: Pt is alert and oriented; behavior is odd, disorganized, shadow boxing, eyes closed; patient is not in distress; dressed in casual attire with marginal hygiene; mood is described as sad and affect looks mostly blunted; eyelids mos tly closed; Speech is soft, sometimes garbled, little bit of an odd prosody; psychomotor agitation present; thought process is distracted; Thought content is on being sad no delusional content expressed; denies any SI/HI. Looks a bit internally preoccupied. Patients insight and judgment are impaired Diagnostics Vital Signs (24Hr): Vital Signs - 24 hr 01/25/23 18:00 01/26/23 08:20 Temperature 96.4 F L 97.8 F Pulse Rate 98 89 Respiratory Rate 18 16 Blood Pressure 127/69 131/71 Pulse Oximetry 98 98 Oxygen Delivery Method Room Air Room Air Labs 01/22/23 08:57 Medications Medications Current Medications Acetaminophen (Acetaminophen 325 Mg Tablet) 650 mg PO Q6H PRN PRN Reason: Headache/Pain Mild Scale (1-3) Last Admin: 01/22/23 10:33 Dose: 650 mg Al Hydroxide/Mg Hydroxide (Magnesium Hydrox/Alum Hydrox 30 Ml Oral.Susp) 30 ml PO Q6H PRN PRN Reason: Heartburn/Nausea Clonidine HCl (Clonidine Hcl 0.1 Mg Tablet) 0.1 mg PO Q2H PRN; Protocol PRN Reason: SBP > 150 Last Admin: 01/23/23 12:48 Dose: 0.1 mg Cyclobenzaprine HCl (Cyclobenzaprine Hcl 10 Mg Tablet) 10 mg PO BID PRN PRN Reason: Muscle Spasm Last Admin: 01/26/23 10:03 Dose: 10 mg Dicyclomine HCl (Dicyclomine Hcl 10 Mg Capsule) 10 mg PO QIDACHS PRN PRN Reason: cramping Folic Acid (Folic Acid 1 Mg Tablet) 1 mg PO DAILY [facility] Last Admin: 01/26/23 08:33 Dose: 1 mg Hydroxyzine HCl (Hydroxyzine Hcl 25 Mg Tablet) 25 mg PO Q6H PRN PRN Reason: Anxiety Last Admin: 01/26/23 10:03 Dose: 25 mg Ibuprofen (Ibuprofen 800 Mg Tablet) 800 mg PO Q8H PRN PRN Reason: aches/pains Last Admin: 01/24/23 10:30 Dose: 800 mg Loratadine (Loratadine 10 Mg Tablet) 10 mg PO DAILY [facility] Last Admin: 01/26/23 08:33 Dose: 10 mg Lorazepam (Lorazepam 1 Mg Tablet) 1 mg PO Q4H PRN PRN Reason: withdrawal sx Last Admin: 01/25/23 20:23 Dose: 1 mg Magnesium Hydroxide (Milk Of Magnesia 30 Ml Oral.Susp) 30 ml PO DAILY PRN PRN Reason: Constipation Methadone HCl (Methadone Hcl 20 Mg/2 Ml Oral.Conc) 45 mg PO DAILY [facility] Last Admin: 01/26/23 08:34 Dose: 45 mg Mirtazapine (Mirtazapine 7.5 Mg Tablet) 22.5 mg PO BEDTIME [facility] Last Admin: 01/25/23 20:23 Dose: 22.5 mg Multivitamins/Vitamin C (Multivitamin Tablet) 1 tab PO DAILY [facility] Last Admin: 01/26/23 08:33 Dose: 1 tab Nicotine Polacrilex (Nicotine Polacrilex 2 Mg Gum) 4 mg BUCCAL Q2H PRN PRN Reason: Nicotine Cravings Thiamine HCl (Thiamine Hcl 100 Mg Tablet) 100 mg PO DAILY [facility] Last Admin: 01/26/23 08:33 Dose: 100 mg Trazodone HCl (Trazodone Hcl 50 Mg Tablet) 50 mg PO BEDTIME MRX1 PRN PRN Reason: Insomnia Last Admin: 01/25/23 20:23 Dose: 50 mg Allergies Allergies Allergy/AdvReac Type Severity Reaction Status Date / Time seafood Allergy Severe Anaphylaxis Verified 10/22/20 22:18 Assessment & Plan Assessment & Plan (1) Mood disorder: Status: Acute Code(s): F39 - Unspecified mood [affective] disorder (2) Opioid use disorder: Status: Acute Code(s): F11.90 - Opioid use, unspecified, uncomplicated (3) Cocaine use disorder: Status: Acute Code(s): F14.10 - Cocaine abuse, uncomplicated (4) Cannabis use disorder: Status: Acute Code(s): F12.90 - Cannabis use, unspecified, uncomplicated Plan 42 yo male, hx of polysubstance use d/o, mood disorder with psychotic features vs substance induced psychosis with SI and homelessness. Pt asks for consult to begin Methadone, to go to [facility] and review medications. Plan: Continue current regime Complete detox, evaluate efficacy of regime Addiction consult- pt wanting to return to Methadone CIWA, Lorazepam prn Thiamine, Folic Acid and MVI Claritin 10 mg daily Aftercare planning, ?[facility] 01/23/23: Increase Mirtazapine to 22.5 mg HS 01/25/23: Continue current regime and plan of care. 01/26/23: -Patient acting a little strange, shadow boxing in the culver or pretending to play basketball however when talking to him looks sedated, eyes mostly closed, not articulating clearly; reports he's sad -Not sure patient's baseline but disorganization looks a little manic or psychotic (admission note: Reports hx of sydnie with impulsivity, elevation of mood, rapid speech and racing of thoughts. ) -Staff reports patient was up most of the night; given behaviors and sedation some concern that patient may have used contra Ban on the unit however he has not had any visitors. -Ordered UDS drug screen with quantitative analysis -There is a possibility that Mirtazapine could trigger sydnie so will hold off on increasing for now -Will schedule Zyprexa 5mg qhs as well as order as prn for agitation. Patient educated on: diagnosis and medication risk/benefits Informed Consent: further education needed Reason for continued inpatient stay Substantial Risk for: rapid decompensation Time Spent With Patient Time: Total time managing care of this patient today ____ minutes.
--- NOTE | 2023-01-26 11:02 | MHC.RECOVRN ---
Met with pt in 511 to follow up regarding methadone titration. Pt reports feeling good, you brought me back to life. Pt reports sleep has been adequate and has been eating well and attending groups. Pt denies questions or concerns at this time. Ricarda Washburn APRN, aware.
--- NOTE | 2023-01-26 12:00 | PC.NURSE ---
PT observed in hallway and appears sedated, standing with eyes closed. Moments later patient began to participate in a virtual basketball game, pretending to be on a basketball court and playing hard enough to cause visible sweating for approximately 20 minutes. Shortly after, pt began to self dialogue and then go back to sedated affect.
[2023-01-26 14:47] LABS: Amphetamine Screen Urine Not Detected (Not Detect); Barbiturates, Urine Not Detected (Not Detect); Benzodiazepines Screen Urine Not Detected (Not Detect); Cannabinoid Screen Urine Not Detected (Not Detect); Cocaine Screen Urine POSITIVE (Not Detect); Fentanyl, urine POSITIVE (Not Detect); Opiate Screen Urine Not Detected (Not Detect); Phencyclidine Screen Urine Not Detected (Not Detect)
[2023-01-26 17:17] VITALS: BP 124/65; PULSE 82; TEMP 35.9
--- NOTE | 2023-01-26 18:10 | PC.NURSE ---
Late entry; pt appeared sedated throughout day shift, often times nodding off. Repeat UDS was ordered, continues to test positive for cocaine and fentanyl depsite being in a hospital setting since 01/21. Order for room sweep obtained but no contraband found. PT denies any illicit use. Ricarda Washburn from comprehensive [facility] consulted, Methadone dose decreased for 30mg daily PO. Will continue to monitor. Dr. Ornelas aware, No further orders at this time. PT continues with obtunded affect.
--- NOTE | 2023-01-26 19:49 | PC.NURSE ---
At 1717, during vital sign assessment, pt was slurring his words, hard to understand, pt also nodding off while standing up during vital sign assessment. Pt then also seen in the patient kitchen sleeping/sedated with head against the wall around 1900.
[2023-01-26] MEDS: Mirtazapine 7.5 MG TABLET 22.5 MG PO (20:07)
[2023-01-26] MEDS: traZODone HCL 50 MG TABLET PO (20:07)
[2023-01-26] MEDS: OLANZapine 5 MG TABLET PO (20:07)
[2023-01-26] MEDS: LORazepam 1 MG TABLET PO (20:08)
--- NOTE | 2023-01-26 21:23 | PC.NURSE ---
at 2122 pt seen slumped against hallway wall, sleeping/Sedated. Will continue to monitor.
[2023-01-27 06:00] VITALS: BP 132/70; PULSE 86; RESP 16; TEMP 36.4; O2SAT 98
[2023-01-27] MEDS: methADONE HCl 20 MG/2 ML ORAL.CONC 30 MG PO (08:10)
[2023-01-27] MEDS: Thiamine HCL 100 MG TABLET PO (08:11)
[2023-01-27] MEDS: Loratadine 10 MG TABLET PO (08:11)
[2023-01-27] MEDS: Folic Acid 1 MG TABLET PO (08:11)
[2023-01-27] MEDS: Multivitamin TABLET 1 TAB PO (08:11)
[2023-01-27] MEDS: LORazepam 1 MG TABLET PO (08:37)
--- NOTE | 2023-01-27 11:22 | MHC.RECOVRN ---
Met with pt to follow up on methadone decrease. Pt irritable, reporting his sneakers are missing and upset that nothing will be done about it. Pt difficult to engage in any other conversation, however, reports he feels fine. Pt does not appear uncomfortable. Pt appears slightly drowsy, heavy eyelids, occasionally rubbing/itching nose. Pt denies other questions or concerns at this time. Ricarda Washburn APRN, aware.
--- NOTE | 2023-01-27 15:55 | PM.EVENT ---
Event Note Date of Service: 01/27/23 Event Note: Addiction note Chart reviewed and patient seen by supervisor sewer maintenance. Methadone dose decreased to 30mg QD Presenting as sedated, eyelids heavy. Irritable, however no complaints of withdrawal. Plan: hold AM methadone and assess level of sedation Time Spent With Patient Time: Total time managing care of this patient today ____ minutes.
[2023-01-27 16:25] VITALS: BP 143/65; PULSE 92; TEMP 35.9
[2023-01-27] MEDS: Ibuprofen 800 MG TABLET PO (16:46)
[2023-01-27] MEDS: Cyclobenzaprine HCl 10 MG TABLET PO (16:46)
[2023-01-27] MEDS: OLANZapine 5 MG TABLET PO (16:47)
--- NOTE | 2023-01-27 18:09 | P.PNPSI_ITS ---
Subjective Subjective Date of Service: 01/27/23 Reason For Visit: Major Depressive D/O, Cocaine Use D/O, Cannabis Subjective Notes: Conditional Voluntary Healthcare Proxy: No Guardianship: No Medical Problems Affecting Mental Status: No Interim History: Reviewed in team. Pt reportedly is labile with sedation. There is a question of contraband use on 01/26. Toxicology positive for cocaine, pending metabolites. Reports chronic use, therefore per literature positive screen has a range of 5-15 days Met with pt who is angry, labile, yet was sleeping in a chair in the kitchen area a few moments before we met. He states he had goals- to work, to not use and to be a better person. He realizes that after his symptoms of the past day, I need to work on anger . Reports depressive/anxious sx 9. Expressed much anger that he has been denied extra food by team-reports this has been triggering as he has had an issue with food insecurity. Tearful, apologetic, expresses gratitude for his treatment and for team, but has clearly had a MSE change since the weekend. Per Ricarda Washburn, Methadone was held today. Later in the afternoon, pt was observed standing by the door of his room, appearing tired, then was at the nurses station, appearing to be washing the nurses station molding around the top of the desk. Medication Compliance: Yes Side effects from medications: Yes (??) Attending Groups: Intermittent Review of Systems Acute medical concerns: No Medical Review of Systems: unchanged Mental Status Exam Mental Status Exam Patient Appearance: Appropriate Patient Orientation: Person, Place, Time and Situation Level of Consciousness: Alert Patient Behavior: Talkative, Fatigued, Distractible, Good Eye Contact and Crying Mood Description: Labile and Angry Affect Description: Labile Patient Cognition Impaired: No Ability to Follow Directions: Good Speech Pattern: Spontaneous Speech Memory Description: Episodic Impaired Hallucinations: None Delusions: Not Present Perceptual Disturbances: Derealization Thought Process: Distracted and Rumination Thought Content: positive for [place], positive for Circumstantial, positive for [place], positive for Suicidal Ideation (denies) and positive for Homicidal Ideation (denies) Depressive Symptoms: Increased Anxiety, Increased Irritability, Changes in Appetite (increase, possibly from Remeron), Feelings of Worthlessness, Feelings of Guilt and Low Self Esteem Abnormal Motor Activity Signs and Symptoms: Restlessness Judgement: Fair Diagnostics Vital Signs (24Hr): Vital Signs - 24 hr 01/27/23 06:00 01/27/23 16:25 Temperature 97.6 F 96.6 F L Pulse Rate 86 92 Respiratory Rate 16 Blood Pressure 132/70 143/65 H Pulse Oximetry 98 Oxygen Delivery Method Room Air Labs 01/22/23 08:57 Labs: Laboratory Results - last 48 hr 01/26/23 14:00 Urine Opiates Screen Not Detected Urine Fentanyl Screen POSITIVE H Ur Barbiturates Screen Not Detected Ur Phencyclidine Scrn Not Detected Ur Amphetamines Screen Not Detected U Benzodiazepines Scrn Not Detected Urine Cocaine Screen POSITIVE H U Marijuana (THC) Screen Not Detected Medications Medications Current Medications Acetaminophen (Acetaminophen 325 Mg Tablet) 650 mg PO Q6H PRN PRN Reason: Headache/Pain Mild Scale (1-3) Last Admin: 01/22/23 10:33 Dose: 650 mg Al Hydroxide/Mg Hydroxide (Magnesium Hydrox/Alum Hydrox 30 Ml Oral.Susp) 30 ml PO Q6H PRN PRN Reason: Heartburn/Nausea Clonidine HCl (Clonidine Hcl 0.1 Mg Tablet) 0.1 mg PO Q2H PRN; Protocol PRN Reason: SBP > 150 Last Admin: 01/23/23 12:48 Dose: 0.1 mg Cyclobenzaprine HCl (Cyclobenzaprine Hcl 10 Mg Tablet) 10 mg PO BID PRN PRN Reason: Muscle Spasm Last Admin: 01/27/23 16:46 Dose: 10 mg Dicyclomine HCl (Dicyclomine Hcl 10 Mg Capsule) 10 mg PO QIDACHS PRN PRN Reason: cramping Folic Acid (Folic Acid 1 Mg Tablet) 1 mg PO DAILY [facility] Last Admin: 01/27/23 08:11 Dose: 1 mg Hydroxyzine HCl (Hydroxyzine Hcl 25 Mg Tablet) 25 mg PO Q6H PRN PRN Reason: Anxiety Last Admin: 01/26/23 10:03 Dose: 25 mg Ibuprofen (Ibuprofen 800 Mg Tablet) 800 mg PO Q8H PRN PRN Reason: aches/pains Last Admin: 01/27/23 16:46 Dose: 800 mg Loratadine (Loratadine 10 Mg Tablet) 10 mg PO DAILY [facility] Last Admin: 01/27/23 08:11 Dose: 10 mg Lorazepam (Lorazepam 1 Mg Tablet) 1 mg PO Q4H PRN PRN Reason: withdrawal sx Last Admin: 01/27/23 08:37 Dose: 1 mg Magnesium Hydroxide (Milk Of Magnesia 30 Ml Oral.Susp) 30 ml PO DAILY PRN PRN Reason: Constipation Methadone HCl (Methadone Hcl 20 Mg/2 Ml Oral.Conc) 30 mg PO DAILY [facility] Last Admin: 01/27/23 08:10 Dose: 30 mg Mirtazapine (Mirtazapine 7.5 Mg Tablet) 22.5 mg PO BEDTIME [facility] Last Admin: 01/26/23 20:07 Dose: 22.5 mg Multivitamins/Vitamin C (Multivitamin Tablet) 1 tab PO DAILY [facility] Last Admin: 01/27/23 08:11 Dose: 1 tab Nicotine Polacrilex (Nicotine Polacrilex 2 Mg Gum) 4 mg BUCCAL Q2H PRN PRN Reason: Nicotine Cravings Olanzapine (Olanzapine 5 Mg Tablet) 5 mg PO TID PRN PRN Reason: agitation Last Admin: 01/27/23 16:47 Dose: 5 mg Olanzapine (Olanzapine 5 Mg Tablet) 5 mg PO BEDTIME [facility] Last Admin: 01/26/23 20:07 Dose: 5 mg Thiamine HCl (Thiamine Hcl 100 Mg Tablet) 100 mg PO DAILY [facility] Last Admin: 01/27/23 08:11 Dose: 100 mg Trazodone HCl (Trazodone Hcl 50 Mg Tablet) 50 mg PO BEDTIME MRX1 PRN PRN Reason: Insomnia Last Admin: 01/26/23 20:07 Dose: 50 mg Allergies Allergies Allergy/AdvReac Type Severity Reaction Status Date / Time seafood Allergy Severe Anaphylaxis Verified 10/22/20 22:18 Assessment & Plan Assessment & Plan (1) Mood disorder: Status: Acute Code(s): F39 - Unspecified mood [affective] disorder (2) Opioid use disorder: Status: Acute Code(s): F11.90 - Opioid use, unspecified, uncomplicated (3) Cocaine use disorder: Status: Acute Code(s): F14.10 - Cocaine abuse, uncomplicated (4) Cannabis use disorder: Status: Acute Code(s): F12.90 - Cannabis use, unspecified, uncomplicated Plan 42 yo male, hx of polysubstance use d/o, mood disorder with psychotic features vs substance induced psychosis with SI and homelessness. Pt asks for consult to begin Methadone, to go to [facility] and review medications. Plan: Continue current regime Complete detox, evaluate efficacy of regime Addiction consult- pt wanting to return to Methadone CIWA, Lorazepam prn Thiamine, Folic Acid and MVI Claritin 10 mg daily Aftercare planning, ?[facility] 01/23/23: Increase Mirtazapine to 22.5 mg HS 01/25/23: Continue current regime and plan of care. 01/26/23: -Patient acting a little strange, shadow boxing in the culver or pretending to play basketball however when talking to him looks sedated, eyes mostly closed, not articulating clearly; reports he's sad -Not sure patient's baseline but disorganization looks a little manic or psychotic (admission note: Reports hx of sydnie with impulsivity, elevation of mood, rapid speech and racing of thoughts. ) -Staff reports patient was up most of the night; given behaviors and sedation some concern that patient may have used contra Ban on the unit however he has not had any visitors. -Ordered UDS drug screen with quantitative analysis -There is a possibility that Mirtazapine could trigger sydnie so will hold off on increasing for now -Will schedule Zyprexa 5mg qhs as well as order as prn for agitation. 01/27- Continues with variable mental status Decrease Mirtazapine to 15 mg HS Increase Olanzapine to 10 mg HS To simplify regime-Discontinue Lorazepam, Flexeril, Bentyl Patient educated on: therapeutic strategies Informed Consent: understands Reason for continued inpatient stay Substantial Risk for: rapid decompensation Time Spent With Patient Time: Total time managing care of this patient today ____ minutes.
[2023-01-27] MEDS: OLANZapine 10 MG TABLET PO (20:27)
[2023-01-27] MEDS: traZODone HCL 50 MG TABLET PO (20:27)
[2023-01-27] MEDS: Mirtazapine 15 MG TABLET PO (20:27)
[2023-01-28 08:10] VITALS: BP 119/62; PULSE 85; RESP 18; TEMP 36.8; O2SAT 97
[2023-01-28] MEDS: Thiamine HCL 100 MG TABLET PO (08:25)
[2023-01-28] MEDS: Multivitamin TABLET 1 TAB PO (08:25)
[2023-01-28] MEDS: Folic Acid 1 MG TABLET PO (08:25)
[2023-01-28] MEDS: Loratadine 10 MG TABLET PO (08:25)
[2023-01-28] MEDS: hydrOXYzine HCL 25 MG TABLET PO (09:20)
[2023-01-28] MEDS: OLANZapine 5 MG TABLET PO (09:20)
--- NOTE | 2023-01-28 13:41 | HO.PSYCHPN ---
Subjective Subjective Date of Service: 01/28/23 Reason For Visit: Major Depressive D/O, Cocaine Use D/O, Cannabis Subjective Notes: Conditional Voluntary Healthcare Proxy: No Guardianship: No Medical Problems Affecting Mental Status: No Interim History: Reviewed in team who report MSE is variable with irritability, tangentiality, possible response to internal stimuli, mood lability, sedation, confusion. Consulted with Ricarda Washburn NP, Addictions Director. Met with pt who expressed frustration that I lost my sneakers. States he is feeling improved. States he does not feel overmedicated. You have to figure that I have been alone and on the street for a while, not sleeping, not eating, not taking medicine. I need time to adjust and that is what I am doing, my body is getting back to normal. Denies physical sx, discussed appetite and food insecurity, discussed methadone, discussed aftercare planning. Also discussed pt's cleaning on the unit. Yes, I hope that is OK, this is how I manage my anxiety and my head time. It is helpful, productive and helps me manage my thoughts and feelings. Medication Compliance: Yes Side effects from medications: No Attending Groups: No Review of Systems Acute medical concerns: No Medical Review of Systems: unchanged Mental Status Exam Mental Status Exam Patient Appearance: Fatigued Patient Orientation: Person, Place, Time and Situation Level of Consciousness: Alert Patient Behavior: Appropriate, Talkative and Good Eye Contact Mood Description: Flat Affect Description: Flat Patient Cognition Impaired: No Ability to Follow Directions: Good Speech Pattern: Spontaneous Speech Memory Description: Episodic Impaired Hallucinations: None Delusions: Not Present Perceptual Disturbances: Derealization Thought Process: Distracted Thought Content: positive for [place], positive for Circumstantial, positive for Suicidal Ideation (denies) and positive for Homicidal Ideation (denies) Depressive Symptoms: Changes in Appetite, Sleeping More Than Usual, Increased Fatigue and Thoughts of /Suicide (denies) Judgement: Fair Diagnostics Vital Signs (24Hr): Vital Signs - 24 hr 01/27/23 16:25 01/28/23 08:10 Temperature 96.6 F L 98.3 F Pulse Rate 92 85 Respiratory Rate 18 Blood Pressure 143/65 H 119/62 Pulse Oximetry 97 Oxygen Delivery Method Room Air Labs 01/22/23 08:57 Labs: Laboratory Results - last 48 hr 01/26/23 14:00 Urine Opiates Screen Not Detected Urine Fentanyl Screen POSITIVE H Ur Barbiturates Screen Not Detected Ur Phencyclidine Scrn Not Detected Ur Amphetamines Screen Not Detected U Benzodiazepines Scrn Not Detected Urine Cocaine Screen POSITIVE H U Marijuana (THC) Screen Not Detected Medications Medications Current Medications Acetaminophen (Acetaminophen 325 Mg Tablet) 650 mg PO Q6H PRN PRN Reason: Headache/Pain Mild Scale (1-3) Last Admin: 01/22/23 10:33 Dose: 650 mg Al Hydroxide/Mg Hydroxide (Magnesium Hydrox/Alum Hydrox 30 Ml Oral.Susp) 30 ml PO Q6H PRN PRN Reason: Heartburn/Nausea Clonidine HCl (Clonidine Hcl 0.1 Mg Tablet) 0.1 mg PO Q2H PRN; Protocol PRN Reason: SBP > 150 Last Admin: 01/23/23 12:48 Dose: 0.1 mg Folic Acid (Folic Acid 1 Mg Tablet) 1 mg PO DAILY [facility] Last Admin: 01/28/23 08:25 Dose: 1 mg Hydroxyzine HCl (Hydroxyzine Hcl 25 Mg Tablet) 25 mg PO Q6H PRN PRN Reason: Anxiety Last Admin: 01/28/23 09:20 Dose: 25 mg Ibuprofen (Ibuprofen 800 Mg Tablet) 800 mg PO Q8H PRN PRN Reason: aches/pains Last Admin: 01/27/23 16:46 Dose: 800 mg Loratadine (Loratadine 10 Mg Tablet) 10 mg PO DAILY [facility] Last Admin: 01/28/23 08:25 Dose: 10 mg Magnesium Hydroxide (Milk Of Magnesia 30 Ml Oral.Susp) 30 ml PO DAILY PRN PRN Reason: Constipation Methadone HCl (Methadone Hcl 20 Mg/2 Ml Oral.Conc) 30 mg PO DAILY [facility] Last Admin: 01/27/23 08:10 Dose: 30 mg Mirtazapine (Mirtazapine 15 Mg Tablet) 15 mg PO BEDTIME [facility] Last Admin: 01/27/23 20:27 Dose: 15 mg Multivitamins/Vitamin C (Multivitamin Tablet) 1 tab PO DAILY [facility] Last Admin: 01/28/23 08:25 Dose: 1 tab Nicotine Polacrilex (Nicotine Polacrilex 2 Mg Gum) 4 mg BUCCAL Q2H PRN PRN Reason: Nicotine Cravings Olanzapine (Olanzapine 5 Mg Tablet) 5 mg PO TID PRN PRN Reason: agitation Last Admin: 01/28/23 09:20 Dose: 5 mg Olanzapine (Olanzapine 10 Mg Tablet) 10 mg PO BEDTIME [facility] Last Admin: 01/27/23 20:27 Dose: 10 mg Thiamine HCl (Thiamine Hcl 100 Mg Tablet) 100 mg PO DAILY [facility] Last Admin: 01/28/23 08:25 Dose: 100 mg Trazodone HCl (Trazodone Hcl 50 Mg Tablet) 50 mg PO BEDTIME MRX1 PRN PRN Reason: Insomnia Last Admin: 01/27/23 20:27 Dose: 50 mg Allergies Allergies Allergy/AdvReac Type Severity Reaction Status Date / Time seafood Allergy Severe Anaphylaxis Verified 10/22/20 22:18 Assessment & Plan Assessment & Plan (1) Mood disorder: Status: Acute Code(s): F39 - Unspecified mood [affective] disorder (2) Opioid use disorder: Status: Acute Code(s): F11.90 - Opioid use, unspecified, uncomplicated (3) Cocaine use disorder: Status: Acute Code(s): F14.10 - Cocaine abuse, uncomplicated (4) Cannabis use disorder: Status: Acute Code(s): F12.90 - Cannabis use, unspecified, uncomplicated Plan 42 yo male, hx of polysubstance use d/o, mood disorder with psychotic features vs substance induced psychosis with SI and homelessness. Pt asks for consult to begin Methadone, to go to [facility] and review medications. Plan: Continue current regime Complete detox, evaluate efficacy of regime Addiction consult- pt wanting to return to Methadone CIWA, Lorazepam prn Thiamine, Folic Acid and MVI Claritin 10 mg daily Aftercare planning, ?CSS 01/23/23: Increase Mirtazapine to 22.5 mg 01/25/23: Continue current regime and plan of care. 01/26/23: -Patient acting a little strange, shadow boxing in the culver or pretending to play basketball however when talking to him looks sedated, eyes mostly closed, not articulating clearly; reports he's sad -Not sure patient's baseline but disorganization looks a little manic or psychotic (admission note: Reports hx of sydnie with impulsivity, elevation of mood, rapid speech and racing of thoughts. ) -Staff reports patient was up most of the night; given behaviors and sedation some concern that patient may have used contra Ban on the unit however he has not had any visitors. -Ordered UDS drug screen with quantitative analysis -There is a possibility that Mirtazapine could trigger sydnie so will hold off on increasing for now -Will schedule Zyprexa 5mg qhs as well as order as prn for agitation. 01/27- Continues with variable mental status Decrease Mirtazapine to 15 mg HS Increase Olanzapine to 10 mg HS To simplify regime-Discontinue Lorazepam, Flexeril, Bentyl 01/28/23: Presents with improvement today Decrease Mirtazapine to 7.5 mg HS Pt to trial a dose of Methadone this evening. Patient educated on: medication risk/benefits and therapeutic strategies Informed Consent: understands Reason for continued inpatient stay Substantial Risk for: rapid decompensation Time Spent With Patient Time: Total time managing care of this patient today ____ minutes.
[2023-01-28] MEDS: methADONE HCl 20 MG/2 ML ORAL.CONC PO (14:53)
[2023-01-28 16:11] VITALS: BP 116/58; PULSE 88; TEMP 36.7
[2023-01-28] MEDS: OLANZapine 10 MG TABLET PO (19:44)
[2023-01-28] MEDS: Mirtazapine 7.5 MG TABLET PO (19:44)
[2023-01-28] MEDS: traZODone HCL 50 MG TABLET PO (19:45)
--- NOTE | 2023-01-28 20:10 | P.PNADD_ITS ---
Subjective Subjective Date of Service: 01/28/23 Reason For Visit: Major Depressive D/O, Cocaine Use D/O, Cannabis Interim History: Patient seen in follow up Methadone held this morning due to appearing sedated over the past 2 days Seen in room 511. Patient awake, alert, sitting on the edge of his bed, eating a pudding. Poor eye contact. Disorganized thought process. Irritable affect. Reporting that people are sneaking into his room. When asked about methadone, unable to reply in a manner that made sense. Drastically different presentation than when previously seen by this life underwriter. Nursing reports he has has been less sedated, however slurring his words, irritable and isolating. Review of Systems Review of Systems Yes Unobtainable due to mental status Mental Status Exam Mental Status Exam Level of Consciousness: Awake and Alert Patient Behavior: Guarded and Poor Eye Contact Affect Description: Withdrawn and Hostile Diagnostics Vital Signs (24Hr): Vital Signs - 24 hr 01/28/23 08:10 01/28/23 16:11 Temperature 98.3 F 98.1 F Pulse Rate 85 88 Respiratory Rate 18 Blood Pressure 119/62 116/58 L Pulse Oximetry 97 Oxygen Delivery Method Room Air Labs 01/22/23 08:57 Medications Medications Current Medications Acetaminophen (Acetaminophen 325 Mg Tablet) 650 mg PO Q6H PRN PRN Reason: Headache/Pain Mild Scale (1-3) Last Admin: 01/22/23 10:33 Dose: 650 mg Al Hydroxide/Mg Hydroxide (Magnesium Hydrox/Alum Hydrox 30 Ml Oral.Susp) 30 ml PO Q6H PRN PRN Reason: Heartburn/Nausea Clonidine HCl (Clonidine Hcl 0.1 Mg Tablet) 0.1 mg PO Q2H PRN; Protocol PRN Reason: SBP > 150 Last Admin: 01/23/23 12:48 Dose: 0.1 mg Folic Acid (Folic Acid 1 Mg Tablet) 1 mg PO DAILY [facility] Last Admin: 01/28/23 08:25 Dose: 1 mg Hydroxyzine HCl (Hydroxyzine Hcl 25 Mg Tablet) 25 mg PO Q6H PRN PRN Reason: Anxiety Last Admin: 01/28/23 09:20 Dose: 25 mg Ibuprofen (Ibuprofen 800 Mg Tablet) 800 mg PO Q8H PRN PRN Reason: aches/pains Last Admin: 01/27/23 16:46 Dose: 800 mg Loratadine (Loratadine 10 Mg Tablet) 10 mg PO DAILY [facility] Last Admin: 01/28/23 08:25 Dose: 10 mg Magnesium Hydroxide (Milk Of Magnesia 30 Ml Oral.Susp) 30 ml PO DAILY PRN PRN Reason: Constipation Methadone HCl (Methadone Hcl 20 Mg/2 Ml Oral.Conc) 20 mg PO DAILY [facility] Last Admin: 01/28/23 14:53 Dose: 20 mg Mirtazapine (Mirtazapine 7.5 Mg Tablet) 7.5 mg PO BEDTIME [facility] Last Admin: 01/28/23 19:44 Dose: 7.5 mg Multivitamins/Vitamin C (Multivitamin Tablet) 1 tab PO DAILY [facility] Last Admin: 01/28/23 08:25 Dose: 1 tab Nicotine Polacrilex (Nicotine Polacrilex 2 Mg Gum) 4 mg BUCCAL Q2H PRN PRN Reason: Nicotine Cravings Olanzapine (Olanzapine 5 Mg Tablet) 5 mg PO TID PRN PRN Reason: agitation Last Admin: 01/28/23 09:20 Dose: 5 mg Olanzapine (Olanzapine 10 Mg Tablet) 10 mg PO BEDTIME [facility] Last Admin: 01/28/23 19:44 Dose: 10 mg Thiamine HCl (Thiamine Hcl 100 Mg Tablet) 100 mg PO DAILY [facility] Last Admin: 01/28/23 08:25 Dose: 100 mg Trazodone HCl (Trazodone Hcl 50 Mg Tablet) 50 mg PO BEDTIME MRX1 PRN PRN Reason: Insomnia Last Admin: 01/28/23 19:45 Dose: 50 mg Allergies Allergies Allergy/AdvReac Type Severity Reaction Status Date / Time seafood Allergy Severe Anaphylaxis Verified 10/22/20 22:18 Assessment & Plan Assessment & Plan (1) Opioid use disorder: Status: Acute Code(s): F11.90 - Opioid use, unspecified, uncomplicated Assessment and Plan: * ? if irritability is related to withdrawal, and patient unable to fully articulate. methadone 20mg QD restarted this afternoon. * will continue to follow * case discussed with attending Total time managing care of this patient today _25___ minutes.
[2023-01-29 07:00] VITALS: BMI 31.0
[2023-01-29 08:20] VITALS: BP 120/71; PULSE 93; RESP 18; TEMP 36.2; O2SAT 99
[2023-01-29] MEDS: Loratadine 10 MG TABLET PO (08:54)
[2023-01-29] MEDS: Multivitamin TABLET 1 TAB PO (08:54)
[2023-01-29] MEDS: Folic Acid 1 MG TABLET PO (08:54)
[2023-01-29] MEDS: methADONE HCl 20 MG/2 ML ORAL.CONC PO (08:54)
[2023-01-29] MEDS: Thiamine HCL 100 MG TABLET PO (08:54)
[2023-01-29 09:15] LABS: MANUAL DIFF FLAG NO
[2023-01-29 09:21] LABS: Basophils Percent Auto 0.3 % (0-2); Eosinophils Absolute Auto 0.4 X10*3/uL (0.0-0.4); Eosinophils Percent Auto 6.7 % (0-4); Hematocrit 42.2 % (42.0-52.0); Hemoglobin 12.9 g/dl (14.0-18.0); Imm Gran Abs Auto 0.02 X10*3/uL (0.00-0.03); Imm Gran Pct Auto 0.3 % (0.0-0.4); Lymphocytes Absolute Auto 1.5 X10*3/uL (1.2-4.9); Mean Corpuscular HGB Conc 30.6 g/dl (31.0-36.0); Mean Corpuscular Hemoglobin 27.2 pg (27.0-33.0); Mean Platelet Volume 9.4 fL (9.4-12.4); Monocytes Absolute Auto 0.4 X10*3/uL (0.1-1.2); Monocytes Percent Auto 5.9 % (2-11); Neutrophils Absolute Auto 3.8 x10*3/uL (2.0-8.3); Neutrophils Percent Auto 61.8 % (45-73); Platelet Count 339 X10*3/uL (160-400); Red Blood Count 4.74 X10*6/uL (4.60-5.80); Red Cell Distribution Width 14.1 % (11.0-16.0); White Blood Count 6.1 X10*3/uL (4.8-10.8)
[2023-01-29 09:39] LABS: Alanine Aminotransferase 78 U/L (0-40); Albumin Level 3.9 g/dL (3.5-5.0); Alkaline Phosphatase 205 U/L (39-117); Anion Gap 12 (12-20); Aspartate Amino Transferase 38 U/L (5-37); Bilirubin Total 0.2 mg/dL (0.0-1.0); Blood Urea Nitrogen 15 mg/dL (9-16); Calcium 9.9 mg/dL (8.4-10.2); Carbon Dioxide 31 mmol/L (22-29); Chloride 103 mmol/L (96-108); Estimated Glomerular Filt Rate > 60; Glucose Random 125 mg/dL (60-115); Potassium 4.3 mmol/L (3.3-5.1); Sodium 142 mmol/L (135-145); Total Protein 6.8 g/dL (6.5-8.0)
--- NOTE | 2023-01-29 10:40 | PC.NURSE ---
Pt refused EKG, HESHAM Forrester made aware.
--- NOTE | 2023-01-29 13:10 | P.PNPSI_ITS ---
Subjective Subjective Date of Service: 01/29/23 Reason For Visit: Major Depressive D/O, Cocaine Use D/O, Cannabis Subjective Notes: Conditional Voluntary Healthcare Proxy: No Guardianship: No Medical Problems Affecting Mental Status: No Interim History: Reviewed in team. Pt reported to be wandering and pacing, awake most of the night, however he reports he slept better , again referencing his time living on the street and now attempting to re-establish a routine. Clearer, more coherent in discussion today. States medicine is helping, denies feeling overmedicated at this time, I feel good. Some evidence of periods of hyperactivity noted. Denies withdrawal sx. Medication Compliance: Yes Side effects from medications: No Attending Groups: Intermittent Review of Systems Acute medical concerns: No Medical Review of Systems: unchanged Mental Status Exam Mental Status Exam Patient Appearance: Appropriate Patient Orientation: Person, Place, Time and Situation Level of Consciousness: Alert Patient Behavior: Appropriate, Talkative, Hyperactive (observed x 1 this a.m.) and Good Eye Contact Mood Description: Apprehensive Affect Description: Apprehensive Patient Cognition Impaired: No Ability to Follow Directions: Good Speech Pattern: Spontaneous Speech Memory Description: Episodic Impaired Hallucinations: None Delusions: Not Present Thought Process: Distracted Thought Content: positive for [place], positive for Circum[place], positive for Suicidal Ideation (denies) and positive for Homicidal Ideation (denies) Depressive Symptoms: Changes in Appetite, Sleeping More Than Usual, Increased Fatigue and Thoughts of /Suicide (denies) Judgement: Fair Diagnostics Vital Signs (24Hr): Vital Signs - 24 hr 01/28/23 16:11 01/29/23 08:20 Temperature 98.1 F 97.2 F Pulse Rate 88 93 Respiratory Rate 18 Blood Pressure 116/58 L 120/71 Pulse Oximetry 99 Oxygen Delivery Method Room Air Labs 01/29/23 09:07 01/29/23 09:07 Labs: Laboratory Results - last 48 hr 01/29/23 01/29/23 09:07 09:07 WBC 6.1 RBC 4.74 Hgb 12.9 L Hct 42.2 MCV 89.0 MCH 27.2 MCHC 30.6 L RDW 14.1 Plt Count 339 MPV 9.4 Immature Gran % (Auto) 0.3 Neut % (Auto) 61.8 Lymph % (Auto) 25.0 Early % (Auto) 5.9 Eos % (Auto) 6.7 H Baso % (Auto) 0.3 Lymph # (Auto) 1.5 Early # (Auto) 0.4 Eos # (Auto) 0.4 Baso # (Auto) 0.0 Abs Immat Gran (auto) 0.02 Absolute Neuts (auto) 3.8 Absolute Nucleated RBC 0.000 Nucleated RBC % (auto) 0.0 Sodium 142 Potassium 4.3 Chloride 103 Carbon Dioxide 31 H Anion Gap 12 BUN 15 Creatinine 0.81 Estim Creat Clear Calc TNP Estimated GFR > 60 Random Glucose 125 H Calcium 9.9 Total Bilirubin 0.2 AST 38 H ALT 78 H Alkaline Phosphatase 205 H Total Protein 6.8 Albumin 3.9 Medications Medications Current Medications Acetaminophen (Acetaminophen 325 Mg Tablet) 650 mg PO Q6H PRN PRN Reason: Headache/Pain Mild Scale (1-3) Last Admin: 01/22/23 10:33 Dose: 650 mg Al Hydroxide/Mg Hydroxide (Magnesium Hydrox/Alum Hydrox 30 Ml Oral.Susp) 30 ml PO Q6H PRN PRN Reason: Heartburn/Nausea Clonidine HCl (Clonidine Hcl 0.1 Mg Tablet) 0.1 mg PO Q2H PRN; Protocol PRN Reason: SBP > 150 Last Admin: 01/23/23 12:48 Dose: 0.1 mg Folic Acid (Folic Acid 1 Mg Tablet) 1 mg PO DAILY [facility] Last Admin: 01/29/23 08:54 Dose: 1 mg Hydroxyzine HCl (Hydroxyzine Hcl 25 Mg Tablet) 25 mg PO Q6H PRN PRN Reason: Anxiety Last Admin: 01/28/23 09:20 Dose: 25 mg Ibuprofen (Ibuprofen 800 Mg Tablet) 800 mg PO Q8H PRN PRN Reason: aches/pains Last Admin: 01/27/23 16:46 Dose: 800 mg Loratadine (Loratadine 10 Mg Tablet) 10 mg PO DAILY [facility] Last Admin: 01/29/23 08:54 Dose: 10 mg Magnesium Hydroxide (Milk Of Magnesia 30 Ml Oral.Susp) 30 ml PO DAILY PRN PRN Reason: Constipation Methadone HCl (Methadone Hcl 20 Mg/2 Ml Oral.Conc) 20 mg PO DAILY [facility] Last Admin: 01/29/23 08:54 Dose: 20 mg Mirtazapine (Mirtazapine 7.5 Mg Tablet) 7.5 mg PO BEDTIME [facility] Last Admin: 01/28/23 19:44 Dose: 7.5 mg Multivitamins/Vitamin C (Multivitamin Tablet) 1 tab PO DAILY [facility] Last Admin: 01/29/23 08:54 Dose: 1 tab Nicotine Polacrilex (Nicotine Polacrilex 2 Mg Gum) 4 mg BUCCAL Q2H PRN PRN Reason: Nicotine Cravings Olanzapine (Olanzapine 5 Mg Tablet) 5 mg PO TID PRN PRN Reason: agitation Last Admin: 01/28/23 09:20 Dose: 5 mg Olanzapine (Olanzapine 10 Mg Tablet) 10 mg PO BEDTIME [facility] Last Admin: 01/28/23 19:44 Dose: 10 mg Thiamine HCl (Thiamine Hcl 100 Mg Tablet) 100 mg PO DAILY [facility] Last Admin: 01/29/23 08:54 Dose: 100 mg Trazodone HCl (Trazodone Hcl 50 Mg Tablet) 50 mg PO BEDTIME MRX1 PRN PRN Reason: Insomnia Last Admin: 01/28/23 19:45 Dose: 50 mg Allergies Allergies Allergy/AdvReac Type Severity Reaction Status Date / Time seafood Allergy Severe Anaphylaxis Verified 10/22/20 22:18 Assessment & Plan Assessment & Plan (1) Opioid use disorder: Status: Acute Code(s): F11.90 - Opioid use, unspecified, uncomplicated Assessment and Plan: * ? if irritability is related to withdrawal, and patient unable to fully articulate. methadone 20mg QD restarted this afternoon. * will continue to follow * case discussed with attending (2) Mood disorder: Status: Acute Code(s): F39 - Unspecified mood [affective] disorder (3) Cannabis use disorder: Status: Acute Code(s): F12.90 - Cannabis use, unspecified, uncomplicated (4) Cocaine use disorder: Status: Acute Code(s): F14.10 - Cocaine abuse, uncomplicated Plan 01/29/23: Continue current regime Hepatitis profile- Alk Phos 155-205, ALT 40-78, AST 26-38 Team continues to look for CSS placement for pt.upon discharge. Patient educated on: medication risk/benefits and therapeutic strategies Informed Consent: further education needed Reason for continued inpatient stay Substantial Risk for: rapid decompensation Time Spent With Patient Time: Total time managing care of this patient today ____ minutes.
[2023-01-29 16:10] VITALS: BP 126/67; PULSE 82; TEMP 36.6
[2023-01-29] MEDS: Ibuprofen 800 MG TABLET PO (16:13)
[2023-01-29] MEDS: Acetaminophen 325 MG TABLET 650 MG PO (16:14)
[2023-01-29] MEDS: cloNIDine HCL 0.1 MG TABLET PO (16:14)
[2023-01-29] MEDS: traZODone HCL 50 MG TABLET PO (20:03)
[2023-01-29] MEDS: OLANZapine 10 MG TABLET PO (20:03)
[2023-01-29] MEDS: Mirtazapine 7.5 MG TABLET PO (20:03)
--- NOTE | 2023-01-30 03:36 | PC.NURSE ---
PT noted to be bed swapping in room on the overnight shift.
[2023-01-30 06:00] VITALS: BP 113/64; PULSE 75; RESP 16; TEMP 36.6; O2SAT 100
--- NOTE | 2023-01-30 07:00 | ECG_ITS ---
Test Reason : R/O QTC PROLONGATION Blood Pressure : / mmHG Vent. Rate : 083 BPM Atrial Rate : 083 BPM P-R Int : 120 ms QRS Dur : 122 ms QT Int : 372 ms P-R-T Axes : 079 064 035 degrees QTc Int : 437 ms Normal sinus rhythm Right bundle branch block Abnormal ECG No previous ECGs available Referred By: Mitzy Rosas Electronically Signed By:RHEA DUKE
[2023-01-30] MEDS: Thiamine HCL 100 MG TABLET PO (08:34)
[2023-01-30] MEDS: methADONE HCl 20 MG/2 ML ORAL.CONC PO (08:34)
[2023-01-30] MEDS: Folic Acid 1 MG TABLET PO (08:34)
[2023-01-30] MEDS: Multivitamin TABLET 1 TAB PO (08:34)
[2023-01-30] MEDS: Loratadine 10 MG TABLET PO (08:34)
--- NOTE | 2023-01-30 11:40 | PC.NURSE ---
PT appears less sedated that prior presentations to this group underwriter, less irritable. Keeping mostly to self, isolating to room.
--- NOTE | 2023-01-30 14:59 | P.PNPSI_ITS ---
Subjective Subjective Date of Service: 01/30/23 Reason For Visit: Major Depressive D/O, Cocaine Use D/O, Cannabis Subjective Notes: Conditional Voluntary Healthcare Proxy: No Guardianship: No Medical Problems Affecting Mental Status: No Interim History: Pt is alert, oriented, clear. He reports feeling improved. Reports sleep and appetite are intact Reports no adverse effects from medications, methadose. Team reports no further sedation as we had seen earlier in the week. Pt awaits bed at [facility] with his hope to transition to [facility] when they have an available bed. Medication Compliance: Yes Side effects from medications: No Attending Groups: Intermittent Review of Systems Acute medical concerns: No Medical Review of Systems: unchanged Mental Status Exam Mental Status Exam Patient Appearance: Appropriate Patient Orientation: Person, Place, Time and Situation Level of Consciousness: Alert Patient Behavior: Appropriate, Talkative, Cooperative and Good Eye Contact Mood Description: Flat Affect Description: Flat Patient Cognition Impaired: No Ability to Follow Directions: Good Speech Pattern: Spontaneous Speech Memory Description: Episodic Impaired Hallucinations: None Delusions: Not Present Thought Process: Intact and Goal Oriented Thought Content: positive for Intact, positive for Goal Oriented, positive for Suicidal Ideation (denies) and positive for Homicidal Ideation (denies) Depressive Symptoms: Thoughts of /Suicide (denies) and Low Self Esteem (discussed wanting to be more responsible and self-reliable) Judgement: Good Diagnostics Vital Signs (24Hr): Vital Signs - 24 hr 01/29/23 16:10 01/30/23 06:00 Temperature 97.8 F 98 F Pulse Rate 82 75 Respiratory Rate 16 Blood Pressure 126/67 113/64 Pulse Oximetry 100 Oxygen Delivery Method Room Air BMI result Body Mass Index 31.0 Labs 01/29/23 09:07 01/29/23 09:07 Labs: Laboratory Results - last 48 hr 01/29/23 01/29/23 09:07 09:07 WBC 6.1 RBC 4.74 Hgb 12.9 L Hct 42.2 MCV 89.0 MCH 27.2 MCHC 30.6 L RDW 14.1 Plt Count 339 MPV 9.4 Immature Gran % (Auto) 0.3 Neut % (Auto) 61.8 Lymph % (Auto) 25.0 [place] % (Auto) 5.9 Eos % (Auto) 6.7 H Baso % (Auto) 0.3 Lymph # (Auto) 1.5 [place] # (Auto) 0.4 Eos # (Auto) 0.4 Baso # (Auto) 0.0 Abs Immat Gran (auto) 0.02 Absolute Neuts (auto) 3.8 Absolute Nucleated RBC 0.000 Nucleated RBC % (auto) 0.0 Sodium 142 Potassium 4.3 Chloride 103 Carbon Dioxide 31 H Anion Gap 12 BUN 15 Creatinine 0.81 Estim Creat Clear Calc TNP Estimated GFR > 60 Random Glucose 125 H Calcium 9.9 Total Bilirubin 0.2 AST 38 H ALT 78 H Alkaline Phosphatase 205 H Total Protein 6.8 Albumin 3.9 EKG EKG Comment: RBBB on EKG today without sx. Will ask pt about referral to OP Cardiology Medications Medications Current Medications Acetaminophen (Acetaminophen 325 Mg Tablet) 650 mg PO Q6H PRN PRN Reason: Headache/Pain Mild Scale (1-3) Last Admin: 01/29/23 16:14 Dose: 650 mg Al Hydroxide/Mg Hydroxide (Magnesium Hydrox/Alum Hydrox 30 Ml Oral.Susp) 30 ml PO Q6H PRN PRN Reason: Heartburn/Nausea Clonidine HCl (Clonidine Hcl 0.1 Mg Tablet) 0.1 mg PO Q2H PRN; Protocol PRN Reason: SBP > 150 Last Admin: 01/29/23 16:14 Dose: 0.1 mg Folic Acid (Folic Acid 1 Mg Tablet) 1 mg PO DAILY [facility] Last Admin: 01/30/23 08:34 Dose: 1 mg Hydroxyzine HCl (Hydroxyzine Hcl 25 Mg Tablet) 25 mg PO Q6H PRN PRN Reason: Anxiety Last Admin: 01/28/23 09:20 Dose: 25 mg Ibuprofen (Ibuprofen 800 Mg Tablet) 800 mg PO Q8H PRN PRN Reason: aches/pains Last Admin: 01/29/23 16:13 Dose: 800 mg Loratadine (Loratadine 10 Mg Tablet) 10 mg PO DAILY [facility] Last Admin: 01/30/23 08:34 Dose: 10 mg Magnesium Hydroxide (Milk Of Magnesia 30 Ml Oral.Susp) 30 ml PO DAILY PRN PRN Reason: Constipation Methadone HCl (Methadone Hcl 20 Mg/2 Ml Oral.Conc) 20 mg PO DAILY [facility] Last Admin: 01/30/23 08:34 Dose: 20 mg Mirtazapine (Mirtazapine 7.5 Mg Tablet) 7.5 mg PO BEDTIME [facility] Last Admin: 01/29/23 20:03 Dose: 7.5 mg Multivitamins/Vitamin C (Multivitamin Tablet) 1 tab PO DAILY [facility] Last Admin: 01/30/23 08:34 Dose: 1 tab Nicotine Polacrilex (Nicotine Polacrilex 2 Mg Gum) 4 mg BUCCAL Q2H PRN PRN Reason: Nicotine Cravings Olanzapine (Olanzapine 5 Mg Tablet) 5 mg PO TID PRN PRN Reason: agitation Last Admin: 01/28/23 09:20 Dose: 5 mg Olanzapine (Olanzapine 10 Mg Tablet) 10 mg PO BEDTIME [facility] Last Admin: 01/29/23 20:03 Dose: 10 mg Thiamine HCl (Thiamine Hcl 100 Mg Tablet) 100 mg PO DAILY [facility] Last Admin: 01/30/23 08:34 Dose: 100 mg Trazodone HCl (Trazodone Hcl 50 Mg Tablet) 50 mg PO BEDTIME MRX1 PRN PRN Reason: Insomnia Last Admin: 01/29/23 20:03 Dose: 50 mg Allergies Allergies Allergy/AdvReac Type Severity Reaction Status Date / Time seafood Allergy Severe Anaphylaxis Verified 10/22/20 22:18 Assessment & Plan Assessment & Plan (1) Opioid use disorder: Status: Acute Code(s): F11.90 - Opioid use, unspecified, uncomplicated Assessment and Plan: * ? if irritability is related to withdrawal, and patient unable to fully articulate. methadone 20mg QD restarted this afternoon. * will continue to follow * case discussed with attending (2) Mood disorder: Status: Acute Code(s): F39 - Unspecified mood [affective] disorder (3) Cannabis use disorder: Status: Acute Code(s): F12.90 - Cannabis use, unspecified, uncomplicated (4) Cocaine use disorder: Status: Acute Code(s): F14.10 - Cocaine abuse, uncomplicated Plan 01/29/23: Continue current regime Hepatitis profile- Alk Phos 155-205, ALT 40-78, AST 26-38 Team continues to look for CSS placement for pt.upon discharge. 01/30/23: Continue current plan, discharge to [facility] next week pending a bed OP Cardiology referral upon discharge for RBBB-pt without sx, will refer if he agrees. Informed Consent: understands Reason for continued inpatient stay Substantial Risk for: harm to self, inability to function and rapid decompensation Time Spent With Patient Time: Total time managing care of this patient today ____ minutes.
[2023-01-30] MEDS: cloNIDine HCL 0.1 MG TABLET PO (16:09)
[2023-01-30] MEDS: hydrOXYzine HCL 25 MG TABLET PO (16:10)
[2023-01-30] MEDS: Mirtazapine 7.5 MG TABLET PO ×2 (19:35→20:17)
[2023-01-30] MEDS: OLANZapine 10 MG TABLET PO ×2 (19:35→20:17)
[2023-01-30] MEDS: traZODone HCL 50 MG TABLET PO (21:04)
[2023-01-31 08:07] VITALS: BP 115/61; PULSE 91; RESP 16; TEMP 36.8; O2SAT 99
[2023-01-31] MEDS: Folic Acid 1 MG TABLET PO (08:09)
[2023-01-31] MEDS: Multivitamin TABLET 1 TAB PO (08:09)
[2023-01-31] MEDS: Thiamine HCL 100 MG TABLET PO (08:09)
[2023-01-31] MEDS: Loratadine 10 MG TABLET PO (08:09)
[2023-01-31] MEDS: methADONE HCl 20 MG/2 ML ORAL.CONC PO (08:09)
--- NOTE | 2023-01-31 10:56 | HO.PSYCHPN ---
Subjective Subjective Date of Service: 01/31/23 Reason For Visit: Major Depressive D/O, Cocaine Use D/O, Cannabis Interim History: Pt is alert, oriented, clear. He reports feeling improved. Reports sleep and appetite are intact Reports no adverse effects from medications, methadose. Pt awaits bed at [facility] with his hope to transition to [facility] when they have an available bed. Review of Systems Review of Systems Patient has no acute medical concerns at this time Patient refuses to answer any detailed questions Yes Unobtainable due to mental status Constitutional: Reports as per HPI, Reports body ache(s), Reports difficulty sleeping, Reports fatigue, Reports headache(s), Reports lethargy and Reports malaise Eyes: Reports no additional eye complaints Reports headache(s) Cardiovascular: Reports no additional cardiovascular complaints Respiratory: Reports chest congestion and Reports wheezing Gastrointestinal: Reports abdominal pain (opiate withdrawal) Genitourinary: Reports no additional male genitourinary complaints Musculoskeletal: Reports myalgias Skin/Breast: Reports system reviewed and no additional complaints, except as docu Reports headache(s) Psychiatric: Reports abnormal sleep pattern, Reports depression, Reports auditory hallucinations, Reports paranoia and Reports suicidal ideation Endocrine: Reports fatigue Hematologic/Lymphatic: Reports no additional hematologic/lymphatic complaints Allergic/Immunologic: Reports seasonal rhinorrhea and Reports wheezing Mental Status Exam Mental Status Exam Narrative: Pt is alert and oriented; behavior is odd, disorganized, shadow boxing, eyes closed; patient is not in distress; dressed in casual attire with marginal hygiene; mood is described as sad and affect looks mostly blunted; eyelids mostly closed; Speech is soft, sometimes garbled, little bit of an odd prosody; psychomotor agitation present; thought process is distracted; Thought content is on being sad no delusional content expressed; denies any SI/HI. Looks a bit internally preoccupied. Patients insight and judgment are impaired Patient Appearance: Appropriate Patient Orientation: Person, Place, Time and Situation Level of Consciousness: Alert Patient Behavior: Appropriate, Talkative, Cooperative and Good Eye Contact Mood Description: Flat Affect Description: Flat Patient Cognition Impaired: No Ability to Follow Directions: Good Speech Pattern: Spontaneous Speech Memory Description: Episodic Impaired Diagnostics Vital Signs (24Hr): Vital Signs - 24 hr 01/31/23 08:07 Temperature 98.2 F Pulse Rate 91 Respiratory Rate 16 Blood Pressure 115/61 Pulse Oximetry 99 Oxygen Delivery Method Room Air BMI result Body Mass Index 31.0 Labs 01/29/23 09:07 01/29/23 09:07 Medications Medications Current Medications Acetaminophen (Acetaminophen 325 Mg Tablet) 650 mg PO Q6H PRN PRN Reason: Headache/Pain Mild Scale (1-3) Last Admin: 01/29/23 16:14 Dose: 650 mg Al Hydroxide/Mg Hydroxide (Magnesium Hydrox/Alum Hydrox 30 Ml Oral.Susp) 30 ml PO Q6H PRN PRN Reason: Heartburn/Nausea Clonidine HCl (Clonidine Hcl 0.1 Mg Tablet) 0.1 mg PO Q2H PRN; Protocol PRN Reason: SBP > 150 Last Admin: 01/30/23 16:09 Dose: 0.1 mg Folic Acid (Folic Acid 1 Mg Tablet) 1 mg PO DAILY [facility] Last Admin: 01/31/23 08:09 Dose: 1 mg Hydroxyzine HCl (Hydroxyzine Hcl 25 Mg Tablet) 25 mg PO Q6H PRN PRN Reason: Anxiety Last Admin: 01/30/23 16:10 Dose: 25 mg Ibuprofen (Ibuprofen 800 Mg Tablet) 800 mg PO Q8H PRN PRN Reason: aches/pains Last Admin: 01/29/23 16:13 Dose: 800 mg Loratadine (Loratadine 10 Mg Tablet) 10 mg PO DAILY [facility] Last Admin: 01/31/23 08:09 Dose: 10 mg Magnesium Hydroxide (Milk Of Magnesia 30 Ml Oral.Susp) 30 ml PO DAILY PRN PRN Reason: Constipation Methadone HCl (Methadone Hcl 20 Mg/2 Ml Oral.Conc) 20 mg PO DAILY [facility] Last Admin: 01/31/23 08:09 Dose: 20 mg Mirtazapine (Mirtazapine 7.5 Mg Tablet) 7.5 mg PO BEDTIME [facility] Last Admin: 01/30/23 20:17 Dose: 7.5 mg Multivitamins/Vitamin C (Multivitamin Tablet) 1 tab PO DAILY [facility] Last Admin: 01/31/23 08:09 Dose: 1 tab Nicotine Polacrilex (Nicotine Polacrilex 2 Mg Gum) 4 mg BUCCAL Q2H PRN PRN Reason: Nicotine Cravings Olanzapine (Olanzapine 5 Mg Tablet) 5 mg PO TID PRN PRN Reason: agitation Last Admin: 01/28/23 09:20 Dose: 5 mg Olanzapine (Olanzapine 10 Mg Tablet) 10 mg PO BEDTIME [facility] Last Admin: 01/30/23 20:17 Dose: 10 mg Thiamine HCl (Thiamine Hcl 100 Mg Tablet) 100 mg PO DAILY [facility] Last Admin: 01/31/23 08:09 Dose: 100 mg Trazodone HCl (Trazodone Hcl 50 Mg Tablet) 50 mg PO BEDTIME MRX1 PRN PRN Reason: Insomnia Last Admin: 01/30/23 21:04 Dose: 50 mg Allergies Allergies Allergy/AdvReac Type Severity Reaction Status Date / Time seafood Allergy Severe Anaphylaxis Verified 10/22/20 22:18 Assessment & Plan Assessment & Plan (1) Opioid use disorder: Status: Acute Code(s): F11.90 - Opioid use, unspecified, uncomplicated Assessment and Plan: ? if irritability is related to withdrawal, and patient unable to fully articulate. methadone 20mg QD restarted this afternoon. will continue to follow case discussed with attending (2) Mood disorder: Status: Acute Code(s): F39 - Unspecified mood [affective] disorder (3) Cannabis use disorder: Status: Acute Code(s): F12.90 - Cannabis use, unspecified, uncomplicated (4) Cocaine use disorder: Status: Acute Code(s): F14.10 - Cocaine abuse, uncomplicated Plan 01/29/23: Continue current regime Hepatitis profile- Alk Phos 155-205, ALT 40-78, AST 26-38 Team continues to look for CSS placement for pt.upon discharge. 01/30/23: Continue current plan, discharge to [facility] next week pending a bed OP Cardiology referral upon discharge for RBBB-pt without sx, will refer if he agrees. 01/31: Continue current plan. Reason for continued inpatient stay Substantial Risk for: inability to function and rapid decompensation Time Spent With Patient Time: Total time managing care of this patient today ____ minutes.
--- NOTE | 2023-01-31 18:04 | PC.NURSE ---
LATE ENTRY: At approx 1610 pt became very angry, stating he feels disrespected by staff and wants to leave immediately. Pt was requesting a pair of shoes that have fixed laces (they cannot be removed), and became angry when told he couldn't have these shoes since they aren't safe. The unit does not allow shoes with laces as it is a safety risk. Pt was offered PRN Zyprexa and Atarax and refused. Pt was asked to maintain composure, not be too loud, and to be safe on the unit so he can be discharged appropriately. Pt was explained the three day notice, how it works, what days are included/excluded. Pt stated he doesn't want anyone to bother him. He does not want his vital signs taken, he does not want to be asked if he wants medications, he requests to be left alone. MD Oliver aware. Will continue to monitor for safety.
[2023-01-31] MEDS: traZODone HCL 50 MG TABLET PO (23:44)
[2023-02-01 08:08] VITALS: BP 119/68; PULSE 93; RESP 16; TEMP 36.8; O2SAT 99
[2023-02-01] MEDS: Loratadine 10 MG TABLET PO (08:28)
[2023-02-01] MEDS: Multivitamin TABLET 1 TAB PO (08:28)
[2023-02-01] MEDS: methADONE HCl 20 MG/2 ML ORAL.CONC PO (08:28)
[2023-02-01] MEDS: Folic Acid 1 MG TABLET PO (08:28)
[2023-02-01] MEDS: Thiamine HCL 100 MG TABLET PO (08:28)
[2023-02-01 11:37] LABS: Fentanyl Note SEE COMMENTS
[2023-02-01 11:40] LABS: Fentanyl, Ur 1.0 (H)
[2023-02-01 11:41] LABS: Fentanyl Note SEE COMMENTS
[2023-02-01 11:42] LABS: Benzoylecgonine 380 (H)
[2023-02-01 11:43] LABS: Cocaine Comment SEE COMMENTS
[2023-02-01] MEDS: Ibuprofen 800 MG TABLET PO (12:25)
[2023-02-01] MEDS: hydrOXYzine HCL 25 MG TABLET PO (12:25)
[2023-02-01] MEDS: OLANZapine 5 MG TABLET PO (12:25)
--- NOTE | 2023-02-01 18:22 | HO.PSYCHPN ---
Subjective Subjective Date of Service: 02/01/23 Reason For Visit: Major Depressive D/O, Cocaine Use D/O, Cannabis Interim History: Pt is alert, oriented, clear. He reports feeling improved. He is noted to have some impatience and wants to leave as soon as a bed opens for a [facility] program. Reports sleep and appetite are intact Reports no adverse effects from medications, methadose. Pt awaits bed at [facility] with his hope to transition to [facility] when they have an available bed. Review of Systems Review of Systems Patient has no acute medical concerns at this time Patient refuses to answer any detailed questions Yes Unobtainable due to mental status Constitutional: Reports as per HPI, Reports body ache(s), Reports difficulty sleeping, Reports fatigue, Reports headache(s), Reports lethargy and Reports malaise Eyes: Reports no additional eye complaints Reports headache(s) Cardiovascular: Reports no additional cardiovascular complaints Respiratory: Reports chest congestion and Reports wheezing Gastrointestinal: Reports abdominal pain (opiate withdrawal) Genitourinary: Reports no additional male genitourinary complaints Musculoskeletal: Reports myalgias Skin/Breast: Reports system reviewed and no additional complaints, except as docu Reports headache(s) Psychiatric: Reports abnormal sleep pattern, Reports depression, Reports auditory hallucinations, Reports paranoia and Reports suicidal ideation Endocrine: Reports fatigue Hematologic/Lymphatic: Reports no additional hematologic/lymphatic complaints Allergic/Immunologic: Reports seasonal rhinorrhea and Reports wheezing Mental Status Exam Mental Status Exam Narrative: Pt is alert and oriented; behavior is odd, disorganized, shadow boxing, eyes closed; patient is not in distress; dressed in casual attire with marginal hygiene; mood is described as sad and affect looks mostly blunted; eyelids mostly closed; Speech is soft, sometimes garbled, little bit of an odd prosody; psychomotor agitation present; thought process is distracted; Thought content is on being sad no delusional content expressed; denies any SI/HI. Looks a bit internally preoccupied. Patients insight and judgment are impaired Patient Appearance: Appropriate Patient Orientation: Person, Place, Time and Situation Level of Consciousness: Alert Patient Behavior: Appropriate, Talkative, Cooperative and Good Eye Contact Mood Description: Flat Affect Description: Flat Patient Cognition Impaired: No Ability to Follow Directions: Good Speech Pattern: Spontaneous Speech Memory Description: Episodic Impaired Diagnostics Vital Signs (24Hr): Vital Signs - 24 hr 02/01/23 08:08 Temperature 98.2 F Pulse Rate 93 Respiratory Rate 16 Blood Pressure 119/68 Pulse Oximetry 99 Oxygen Delivery Method Room Air BMI result Body Mass Index 31.0 Labs 01/29/23 09:07 01/29/23 09:07 Labs: Laboratory Results - last 48 hr 01/23/23 01/26/23 01/26/23 11:09 14:00 14:00 Urine Fentanyl Screen SEE COMMENTS SEE COMMENTS Urine Fentanyl 2.0 (H) 1.0 (H) Ur Norfentanyl Quant 36.0 (H) 10.0 (H) U Cocaine Metab Comment SEE COMMENTS U Benzoylecgonine GC/MS 380 (H) Medications Medications Current Medications Acetaminophen (Acetaminophen 325 Mg Tablet) 650 mg PO Q6H PRN PRN Reason: Headache/Pain Mild Scale (1-3) Last Admin: 01/29/23 16:14 Dose: 650 mg Al Hydroxide/Mg Hydroxide (Magnesium Hydrox/Alum Hydrox 30 Ml Oral.Susp) 30 ml PO Q6H PRN PRN Reason: Heartburn/Nausea Clonidine HCl (Clonidine Hcl 0.1 Mg Tablet) 0.1 mg PO Q2H PRN; Protocol PRN Reason: SBP > 150 Last Admin: 01/30/23 16:09 Dose: 0.1 mg Folic Acid (Folic Acid 1 Mg Tablet) 1 mg PO DAILY [facility] Last Admin: 02/01/23 08:28 Dose: 1 mg Hydroxyzine HCl (Hydroxyzine Hcl 25 Mg Tablet) 25 mg PO Q6H PRN PRN Reason: Anxiety Last Admin: 02/01/23 12:25 Dose: 25 mg Ibuprofen (Ibuprofen 800 Mg Tablet) 800 mg PO Q8H PRN PRN Reason: aches/pains Last Admin: 02/01/23 12:25 Dose: 800 mg Loratadine (Loratadine 10 Mg Tablet) 10 mg PO DAILY [facility] Last Admin: 02/01/23 08:28 Dose: 10 mg Magnesium Hydroxide (Milk Of Magnesia 30 Ml Oral.Susp) 30 ml PO DAILY PRN PRN Reason: Constipation Methadone HCl (Methadone Hcl 20 Mg/2 Ml Oral.Conc) 20 mg PO DAILY [facility] Last Admin: 02/01/23 08:28 Dose: 20 mg Mirtazapine (Mirtazapine 7.5 Mg Tablet) 7.5 mg PO BEDTIME [facility] Last Admin: 01/30/23 20:17 Dose: 7.5 mg Multivitamins/Vitamin C (Multivitamin Tablet) 1 tab PO DAILY [facility] Last Admin: 02/01/23 08:28 Dose: 1 tab Nicotine Polacrilex (Nicotine Polacrilex 2 Mg Gum) 4 mg BUCCAL Q2H PRN PRN Reason: Nicotine Cravings Olanzapine (Olanzapine 5 Mg Tablet) 5 mg PO TID PRN PRN Reason: agitation Last Admin: 02/01/23 12:25 Dose: 5 mg Olanzapine (Olanzapine 10 Mg Tablet) 10 mg PO BEDTIME [facility] Last Admin: 01/30/23 20:17 Dose: 10 mg Thiamine HCl (Thiamine Hcl 100 Mg Tablet) 100 mg PO DAILY [facility] Last Admin: 02/01/23 08:28 Dose: 100 mg Trazodone HCl (Trazodone Hcl 50 Mg Tablet) 50 mg PO BEDTIME MRX1 PRN PRN Reason: Insomnia Last Admin: 01/31/23 23:44 Dose: 50 mg Allergies Allergies Allergy/AdvReac Type Severity Reaction Status Date / Time seafood Allergy Severe Anaphylaxis Verified 10/22/20 22:18 Assessment & Plan Assessment & Plan (1) Opioid use disorder: Status: Acute Code(s): F11.90 - Opioid use, unspecified, uncomplicated Assessment and Plan: ? if irritability is related to withdrawal, and patient unable to fully articulate. methadone 20mg QD restarted this afternoon. will continue to follow case discussed with attending (2) Mood disorder: Status: Acute Code(s): F39 - Unspecified mood [affective] disorder (3) Cannabis use disorder: Status: Acute Code(s): F12.90 - Cannabis use, unspecified, uncomplicated (4) Cocaine use disorder: Status: Acute Code(s): F14.10 - Cocaine abuse, uncomplicated Plan 01/29/23: Continue current regime Hepatitis profile- Alk Phos 155-205, ALT 40-78, AST 26-38 Team continues to look for CSS placement for pt.upon discharge. 01/30/23: Continue current plan, discharge to [facility] next week pending a bed OP Cardiology referral upon discharge for RBBB-pt without sx, will refer if he agrees. 01/31: Continue current plan. 02/01: Continue current plan Reason for continued inpatient stay Substantial Risk for: harm to self, inability to function and rapid decompensation Time Spent With Patient Time: Total time managing care of this patient today ____ minutes.
[2023-02-01] MEDS: Mirtazapine 7.5 MG TABLET PO (22:43)
[2023-02-01] MEDS: traZODone HCL 50 MG TABLET PO (22:43)
[2023-02-02] MEDS: Thiamine HCL 100 MG TABLET PO (07:45)
[2023-02-02] MEDS: Multivitamin TABLET 1 TAB PO (07:45)
[2023-02-02] MEDS: methADONE HCl 20 MG/2 ML ORAL.CONC PO (07:45)
[2023-02-02] MEDS: Folic Acid 1 MG TABLET PO (07:45)
[2023-02-02 07:47] VITALS: BP 125/69; PULSE 92; RESP 18; TEMP 36.6; O2SAT 94
[2023-02-02] MEDS: Loratadine 10 MG TABLET PO (07:47)
--- NOTE | 2023-02-02 09:55 | P.PNPSI_ITS ---
Subjective Subjective Date of Service: 02/02/23 Reason For Visit: Major Depressive D/O, Cocaine Use D/O, Cannabis Interim History: Pt is alert, oriented, clear. He reports feeling well. Denies any complaints today. Reports sleep and appetite are intact Reports no adverse effects from medications, methadose. Pt awaits bed at [facility] with his hope to transition to [facility] when they have an available bed. Review of Systems Review of Systems Patient has no acute medical concerns at this time Patient refuses to answer any detailed questions Yes Unobtainable due to mental status Constitutional: Reports as per HPI, Reports body ache(s), Reports difficulty sleeping, Reports fatigue, Reports headache(s), Reports lethargy and Reports malaise Eyes: Reports no additional eye complaints Reports headache(s) Cardiovascular: Reports no additional cardiovascular complaints Respiratory: Reports chest congestion and Reports wheezing Gastrointestinal: Reports abdominal pain (opiate withdrawal) Genitourinary: Reports no additional male genitourinary complaints Musculoskeletal: Reports myalgias Skin/Breast: Reports system reviewed and no additional complaints, except as docu Reports headache(s) Psychiatric: Reports abnormal sleep pattern, Reports depression, Reports auditory hallucinations, Reports paranoia and Reports suicidal ideation Endocrine: Reports fatigue Hematologic/Lymphatic: Reports no additional hematologic/lymphatic complaints Allergic/Immunologic: Reports seasonal rhinorrhea and Reports wheezing Mental Status Exam Mental Status Exam Narrative: Pt is alert and oriented; behavior is odd, disorganized, shadow boxing, eyes closed; patient is not in distress; dressed in casual attire with marginal hygiene; mood is described as sad and affect looks mostly blunted; eyelids mostly closed; Speech is soft, sometimes garbled, little bit of an odd prosody; psychomotor agitation present; thought process is distracted; Thought content is on being sad no delusional content expressed; denies any SI/HI. Looks a bit internally preoccupied. Patients insight and judgment are impaired Patient Appearance: Appropriate Patient Orientation: Person, Place, Time and Situation Level of Consciousness: Alert Patient Behavior: Appropriate, Talkative, Cooperative and Good Eye Contact Mood Description: Flat Affect Description: Flat Patient Cognition Impaired: No Ability to Follow Directions: Good Speech Pattern: Spontaneous Speech Memory Description: Episodic Impaired Diagnostics Vital Signs (24Hr): Vital Signs - 24 hr 02/02/23 07:47 Temperature 97.9 F Pulse Rate 92 Respiratory Rate 18 Blood Pressure 125/69 Pulse Oximetry 94 Oxygen Delivery Method Room Air BMI result Body Mass Index 31.0 Labs 01/29/23 09:07 01/29/23 09:07 Labs: Laboratory Results - last 48 hr 01/23/23 01/26/23 01/26/23 11:09 14:00 14:00 Urine Fentanyl Screen SEE COMMENTS SEE COMMENTS Urine Fentanyl 2.0 (H) 1.0 (H) Ur Norfentanyl Quant 36.0 (H) 10.0 (H) U Cocaine Metab Comment SEE COMMENTS U Benzoylecgonine GC/MS 380 (H) Medications Medications Current Medications Acetaminophen (Acetaminophen 325 Mg Tablet) 650 mg PO Q6H PRN PRN Reason: Headache/Pain Mild Scale (1-3) Last Admin: 01/29/23 16:14 Dose: 650 mg Al Hydroxide/Mg Hydroxide (Magnesium Hydrox/Alum Hydrox 30 Ml Oral.Susp) 30 ml PO Q6H PRN PRN Reason: Heartburn/Nausea Clonidine HCl (Clonidine Hcl 0.1 Mg Tablet) 0.1 mg PO Q2H PRN; Protocol PRN Reason: SBP > 150 Last Admin: 01/30/23 16:09 Dose: 0.1 mg Folic Acid (Folic Acid 1 Mg Tablet) 1 mg PO DAILY [facility] Last Admin: 02/02/23 07:45 Dose: 1 mg Hydroxyzine HCl (Hydroxyzine Hcl 25 Mg Tablet) 25 mg PO Q6H PRN PRN Reason: Anxiety Last Admin: 02/01/23 12:25 Dose: 25 mg Ibuprofen (Ibuprofen 800 Mg Tablet) 800 mg PO Q8H PRN PRN Reason: aches/pains Last Admin: 02/01/23 12:25 Dose: 800 mg Loratadine (Loratadine 10 Mg Tablet) 10 mg PO DAILY [facility] Last Admin: 02/02/23 07:47 Dose: 10 mg Magnesium Hydroxide (Milk Of Magnesia 30 Ml Oral.Susp) 30 ml PO DAILY PRN PRN Reason: Constipation Methadone HCl (Methadone Hcl 20 Mg/2 Ml Oral.Conc) 20 mg PO DAILY [facility] Last Admin: 02/02/23 07:45 Dose: 20 mg Mirtazapine (Mirtazapine 7.5 Mg Tablet) 7.5 mg PO BEDTIME [facility] Last Admin: 02/01/23 22:43 Dose: 7.5 mg Multivitamins/Vitamin C (Multivitamin Tablet) 1 tab PO DAILY [facility] Last Admin: 02/02/23 07:45 Dose: 1 tab Nicotine Polacrilex (Nicotine Polacrilex 2 Mg Gum) 4 mg BUCCAL Q2H PRN PRN Reason: Nicotine Cravings Olanzapine (Olanzapine 5 Mg Tablet) 5 mg PO TID PRN PRN Reason: agitation Last Admin: 02/01/23 12:25 Dose: 5 mg Olanzapine (Olanzapine 10 Mg Tablet) 10 mg PO BEDTIME [facility] Last Admin: 02/01/23 19:55 Dose: Not Given Thiamine HCl (Thiamine Hcl 100 Mg Tablet) 100 mg PO DAILY [facility] Last Admin: 02/02/23 07:45 Dose: 100 mg Trazodone HCl (Trazodone Hcl 50 Mg Tablet) 50 mg PO BEDTIME MRX1 PRN PRN Reason: Insomnia Last Admin: 02/01/23 22:43 Dose: 50 mg Allergies Allergies Allergy/AdvReac Type Severity Reaction Status Date / Time seafood Allergy Severe Anaphylaxis Verified 10/22/20 22:18 Assessment & Plan Assessment & Plan (1) Opioid use disorder: Status: Acute Code(s): F11.90 - Opioid use, unspecified, uncomplicated Assessment and Plan: * ? if irritability is related to withdrawal, and patient unable to fully ar ticulate. methadone 20mg QD restarted this afternoon. * will continue to follow * case discussed with attending (2) Mood disorder: Status: Acute Code(s): F39 - Unspecified mood [affective] disorder (3) Cannabis use disorder: Status: Acute Code(s): F12.90 - Cannabis use, unspecified, uncomplicated (4) Cocaine use disorder: Status: Acute Code(s): F14.10 - Cocaine abuse, uncomplicated Plan 01/29/23: Continue current regime Hepatitis profile- Alk Phos 155-205, ALT 40-78, AST 26-38 Team continues to look for CSS placement for pt.upon discharge. 01/30/23: Continue current plan, discharge to [facility] next week pending a bed OP Cardiology referral upon discharge for RBBB-pt without sx, will refer if he agrees. 01/31: Continue current plan. 02/01: Continue current plan Reason for continued inpatient stay Substantial Risk for: inability to function and rapid decompensation Time Spent With Patient Time: Total time managing care of this patient today ____ minutes.
[2023-02-02] MEDS: traZODone HCL 50 MG TABLET PO (20:11)
[2023-02-02] MEDS: Mirtazapine 7.5 MG TABLET PO (20:11)
[2023-02-02] MEDS: OLANZapine 10 MG TABLET PO (20:11)
[2023-02-03 08:10] VITALS: BP 124/69; PULSE 94; RESP 18; TEMP 36.5; O2SAT 97
[2023-02-03] MEDS: methADONE HCl 20 MG/2 ML ORAL.CONC PO (08:24)
[2023-02-03] MEDS: Loratadine 10 MG TABLET PO (08:24)
[2023-02-03] MEDS: Thiamine HCL 100 MG TABLET PO (08:25)
[2023-02-03] MEDS: Folic Acid 1 MG TABLET PO (08:25)
[2023-02-03] MEDS: Multivitamin TABLET 1 TAB PO (08:25)
--- NOTE | 2023-02-03 17:24 | P.CNPS_ITS ---
History of Present Illness Chief Complaint: Major Depressive D/O, Cocaine Use D/O, Cannabis HPI Past Psychiatric History: IP: Reports several, mostly with [facility], [facility] OP: None currently SA: Several [facility], [facility] Medical History (Updated 01/22/23 @ 18:06 by Mitzy Rosas, NILDA) Cannabis use disorder Cocaine use disorder Mood disorder Opioid use disorder Family History: Depression Trauma History: Affirms Diagnostics Vital Signs (24Hr): Vital Signs - 24 hr 02/03/23 08:10 Temperature 97.7 F Pulse Rate 94 Respiratory Rate 18 Blood Pressure 124/69 Pulse Oximetry 97 Oxygen Delivery Method Room Air BMI result Body Mass Index 31.0 Labs 01/29/23 09:07 01/29/23 09:07 Labs: Laboratory Results - last 48 hr 01/23/23 11:09 U Cocaine Metab Comment SEE NOTE U Benzoylecgonine GC/MS SEE NOTE Ur Carboxy THC GC/MS SEE NOTE Medications Medications Current Medications Acetaminophen (Acetaminophen 325 Mg Tablet) 650 mg PO Q6H PRN PRN Reason: Headache/Pain Mild Scale (1-3) Last Admin: 01/29/23 16:14 Dose: 650 mg Al Hydroxide/Mg Hydroxide (Magnesium Hydrox/Alum Hydrox 30 Ml Oral.Susp) 30 ml PO Q6H PRN PRN Reason: Heartburn/Nausea Clonidine HCl (Clonidine Hcl 0.1 Mg Tablet) 0.1 mg PO Q2H PRN; Protocol PRN Reason: SBP > 150 Last Admin: 01/30/23 16:09 Dose: 0.1 mg Folic Acid (Folic Acid 1 Mg Tablet) 1 mg PO DAILY [facility] Last Admin: 02/03/23 08:25 Dose: 1 mg Hydroxyzine HCl (Hydroxyzine Hcl 25 Mg Tablet) 25 mg PO Q6H PRN PRN Reason: Anxiety Last Admin: 02/01/23 12:25 Dose: 25 mg Ibuprofen (Ibuprofen 800 Mg Tablet) 800 mg PO Q8H PRN PRN Reason: aches/pains Last Admin: 02/01/23 12:25 Dose: 800 mg Loratadine (Loratadine 10 Mg Tablet) 10 mg PO DAILY [facility] Last Admin: 02/03/23 08:24 Dose: 10 mg Magnesium Hydroxide (Milk Of Magnesia 30 Ml Oral.Susp) 30 ml PO DAILY PRN PRN Reason: Constipation Methadone HCl (Methadone Hcl 20 Mg/2 Ml Oral.Conc) 20 mg PO DAILY [facility] Last Admin: 02/03/23 08:24 Dose: 20 mg Mirtazapine (Mirtazapine 7.5 Mg Tablet) 7.5 mg PO BEDTIME [facility] Last Admin: 02/02/23 20:11 Dose: 7.5 mg Multivitamins/Vitamin C (Multivitamin Tablet) 1 tab PO DAILY [facility] Last Admin: 02/03/23 08:25 Dose: 1 tab Nicotine Polacrilex (Nicotine Polacrilex 2 Mg Gum) 4 mg BUCCAL Q2H PRN PRN Reason: Nicotine Cravings Olanzapine (Olanzapine 5 Mg Tablet) 5 mg PO TID PRN PRN Reason: agitation Last Admin: 02/01/23 12:25 Dose: 5 mg Olanzapine (Olanzapine 10 Mg Tablet) 10 mg PO BEDTIME [facility] Last Admin: 02/02/23 20:11 Dose: 10 mg Thiamine HCl (Thiamine Hcl 100 Mg Tablet) 100 mg PO DAILY [facility] Last Admin: 02/03/23 08:25 Dose: 100 mg Trazodone HCl (Trazodone Hcl 50 Mg Tablet) 50 mg PO BEDTIME MRX1 PRN PRN Reason: Insomnia Last Admin: 02/02/23 20:11 Dose: 50 mg Allergies Allergies Allergy/AdvReac Type Severity Reaction Status Date / Time seafood Allergy Severe Anaphylaxis Verified 10/22/20 22:18 Assessment & Plan Total time managing care of this patient today ____ minutes.
--- NOTE | 2023-02-03 18:32 | HO.PSYCHPN ---
Subjective Subjective Date of Service: 02/03/23 Reason For Visit: Major Depressive D/O, Cocaine Use D/O, Cannabis Subjective Notes: Conditional Voluntary and 3 Day Healthcare Proxy: No Guardianship: No Medical Problems Affecting Mental Status: No Interim History: Pt is prepared for discharge he reports. He has a court date this week, plans to work with [facility] and [facility] recovery support. Reports the weekend was good for him and he reports participation in milieu. Denies medication SE and reports regime to be effective. Medication Compliance: Yes Side effects from medications: No Attending Groups: Intermittent Review of Systems Acute medical concerns: No Medical Review of Systems: unchanged Mental Status Exam Mental Status Exam Patient Appearance: Appropriate Patient Orientation: Person, Place, Time and Situation Level of Consciousness: Alert Patient Behavior: Appropriate, Talkative, Cooperative and Good Eye Contact Mood Description: Appropriate Affect Description: Appropriate Patient Cognition Impaired: No Ability to Follow Directions: Good Speech Pattern: Spontaneous Speech Memory Description: Intact Hallucinations: None Delusions: Not Present Thought Process: Goal Oriented Thought Content: positive for Goal Oriented Judgement: Good Diagnostics Vital Signs (24Hr): Vital Signs - 24 hr 02/03/23 08:10 Temperature 97.7 F Pulse Rate 94 Respiratory Rate 18 Blood Pressure 124/69 Pulse Oximetry 97 Oxygen Delivery Method Room Air BMI result Body Mass Index 31.0 Labs 01/29/23 09:07 01/29/23 09:07 Labs: Laboratory Results - last 48 hr 01/23/23 11:09 U Cocaine Metab Comment SEE NOTE U Benzoylecgonine GC/MS SEE NOTE Ur Carboxy THC GC/MS SEE NOTE Medications Medications Current Medications Acetaminophen (Acetaminophen 325 Mg Tablet) 650 mg PO Q6H PRN PRN Reason: Headache/Pain Mild Scale (1-3) Last Admin: 01/29/23 16:14 Dose: 650 mg Al Hydroxide/Mg Hydroxide (Magnesium Hydrox/Alum Hydrox 30 Ml Oral.Susp) 30 ml PO Q6H PRN PRN Reason: Heartburn/Nausea Clonidine HCl (Clonidine Hcl 0.1 Mg Tablet) 0.1 mg PO Q2H PRN; Protocol PRN Reason: SBP > 150 Last Admin: 01/30/23 16:09 Dose: 0.1 mg Folic Acid (Folic Acid 1 Mg Tablet) 1 mg PO DAILY RHONDA Last Admin: 02/03/23 08:25 Dose: 1 mg Hydroxyzine HCl (Hydroxyzine Hcl 25 Mg Tablet) 25 mg PO Q6H PRN PRN Reason: Anxiety Last Admin: 02/01/23 12:25 Dose: 25 mg Ibuprofen (Ibuprofen 800 Mg Tablet) 800 mg PO Q8H PRN PRN Reason: aches/pains Last Admin: 02/01/23 12:25 Dose: 800 mg Loratadine (Loratadine 10 Mg Tablet) 10 mg PO DAILY [facility] Last Admin: 02/03/23 08:24 Dose: 10 mg Magnesium Hydroxide (Milk Of Magnesia 30 Ml Oral.Susp) 30 ml PO DAILY PRN PRN Reason: Constipation Methadone HCl (Methadone Hcl 20 Mg/2 Ml Oral.Conc) 20 mg PO DAILY [facility] Last Admin: 02/03/23 08:24 Dose: 20 mg Mirtazapine (Mirtazapine 7.5 Mg Tablet) 7.5 mg PO BEDTIME [facility] Last Admin: 02/02/23 20:11 Dose: 7.5 mg Multivitamins/Vitamin C (Multivitamin Tablet) 1 tab PO DAILY [facility] Last Admin: 02/03/23 08:25 Dose: 1 tab Nicotine Polacrilex (Nicotine Polacrilex 2 Mg Gum) 4 mg BUCCAL Q2H PRN PRN Reason: Nicotine Cravings Olanzapine (Olanzapine 5 Mg Tablet) 5 mg PO TID PRN PRN Reason: agitation Last Admin: 02/01/23 12:25 Dose: 5 mg Olanzapine (Olanzapine 10 Mg Tablet) 10 mg PO BEDTIME [facility] Last Admin: 02/02/23 20:11 Dose: 10 mg Thiamine HCl (Thiamine Hcl 100 Mg Tablet) 100 mg PO DAILY [facility] Last Admin: 02/03/23 08:25 Dose: 100 mg Trazodone HCl (Trazodone Hcl 50 Mg Tablet) 50 mg PO BEDTIME MRX1 PRN PRN Reason: Insomnia Last Admin: 02/02/23 20:11 Dose: 50 mg Allergies Allergies Allergy/AdvReac Type Severity Reaction Status Date / Time seafood Allergy Severe Anaphylaxis Verified 10/22/20 22:18 Assessment & Plan Assessment & Plan (1) Opioid use disorder: Status: Acute Code(s): F11.90 - Opioid use, unspecified, uncomplicated Assessment and Plan: ? if irritability is related to withdrawal, and patient unable to fully articulate. methadone 20mg QD restarted this afternoon. will continue to follow case discussed with attending (2) Mood disorder: Status: Acute Code(s): F39 - Unspecified mood [affective] disorder (3) Cannabis use disorder: Status: Acute Code(s): F12.90 - Cannabis use, unspecified, uncomplicated (4) Cocaine use disorder: Status: Acute Code(s): F14.10 - Cocaine abuse, uncomplicated Plan 01/29/23: Continue current regime Hepatitis profile- Alk Phos 155-205, ALT 40-78, AST 26-38 Team continues to look for CSS placement for pt.upon discharge. 01/30/23: Continue current plan, discharge to [facility] next week pending a bed OP Cardiology referral upon discharge for RBBB-pt without sx, will refer if he agrees. 01/31: Continue current plan. 02/01: Continue current plan : Discharge 02/04/23. Three day notice of intent. Patient educated on: medication risk/benefits and therapeutic strategies Informed Consent: understands Reason for continued inpatient stay Substantial Risk for: rapid decompensation Time Spent With Patient Time: Total time managing care of this patient today ____ minutes.
[2023-02-03 20:30] VITALS: BP 120/73; PULSE 97; TEMP 36.3; O2SAT 98
[2023-02-03] MEDS: Mirtazapine 7.5 MG TABLET PO (20:45)
[2023-02-03] MEDS: OLANZapine 10 MG TABLET PO (20:45)
[2023-02-03] MEDS: traZODone HCL 50 MG TABLET PO (20:48)
[2023-02-04] MEDS: Multivitamin TABLET 1 TAB PO (08:21)
[2023-02-04] MEDS: methADONE HCl 20 MG/2 ML ORAL.CONC PO (08:21)
[2023-02-04] MEDS: Thiamine HCL 100 MG TABLET PO (08:21)
[2023-02-04] MEDS: Folic Acid 1 MG TABLET PO (08:21)
[2023-02-04] MEDS: Loratadine 10 MG TABLET PO (08:21)
[2023-02-04 08:30] VITALS: BP 117/79; PULSE 94; RESP 18; TEMP 36.8; O2SAT 97
--- NOTE | 2023-02-04 15:34 | PM.PSYDC ---
DS: Providers Provider Date of Service: 02/04/23 Date of admission: 01/21/23 23:00 Date of discharge: 02/04/23 Primary care physician: Unknown Physician Admitting clinician: Mitzy Rosas Attending physician on admission: Adam Harper Consults: 01/21/23 23:30 Consult to Hospitalist Routine Comment: Consulting Provider: Hospitalist Reason For Exam: OSH admission 01/22/23 13:15 Addiction Medicine Routine Consulting Provider: Addiction Covering Reason for consultation: Pt would like to begin Methadone. Reports positive response by history Has provider been notified: No Attending physician on discharge: Adam Harper Discharging clinician: Mitzy Rosas DS: Diagnosis Discharge Diagnosis (1) Opioid use disorder: Status: Acute (2) Mood disorder: Status: Acute (3) Cannabis use disorder: Status: Acute (4) Cocaine use disorder: Status: Acute DS: Medications Discharge Medications Home Medications: Previous Rx's Medication Instructions Recorded folic acid 1 mg tablet 1 mg PO DAILY #30 tabs 02/03/23 loratadine 10 mg tablet 10 mg PO DAILY #30 tabs 02/03/23 methadone 10 mg/mL oral 20 mg (2 mL) PO DAILY #0 mL 02/03/23 concentrate (Methadose) mirtazapine 7.5 mg tablet 7.5 mg PO BEDTIME #30 tabs 02/03/23 multivitamin (Daily-Mirian tablet) 1 tab PO DAILY #30 tabs 02/03/23 olanzapine 10 mg tablet 10 mg PO BEDTIME #30 tabs 02/03/23 thiamine mononitrate (vit B1) 100 100 mg PO DAILY #30 tabs 02/03/23 mg tablet Mental Status Exam Mental Status Exam Patient Appearance: Appropriate Patient Orientation: Person, Place, Time and Situation Level of Consciousness: Alert Patient Behavior: Appropriate, Talkative, Cooperative and Good Eye Contact Mood Description: Appropriate Affect Description: Appropriate Patient Cognition Impaired: No Ability to Follow Directions: Good Speech Pattern: Spontaneous Speech Memory Description: Intact Hallucinations: None Delusions: Not Present Thought Process: Goal Oriented Thought Content: positive for Goal Oriented Judgement: Good Data Data Completed and Pending Completed studies during hospitalization [Text1]: 01/23/23 01/23/23 01/26/23 11:09 11:09 14:00 WBC RBC Hgb Hct MCV MCH MCHC RDW Plt Count MPV Immature Gran % (Auto) Neut % (Auto) Lymph % (Auto) Steele % (Auto) Eos % (Auto) Baso % (Auto) Lymph # (Auto) Steele # (Auto) Eos # (Auto) Baso # (Auto) Abs Immat Gran (auto) Absolute Neuts (auto) Absolute Nucleated RBC Nucleated RBC % (auto) Sodium Potassium Chloride Carbon Dioxide Anion Gap BUN Creatinine Estim Creat Clear Calc Estimated GFR Random Glucose Calcium Total Bilirubin AST ALT Alkaline Phosphatase Total Protein Albumin Urine Fentanyl Screen SEE COMMENTS SEE COMMENTS Urine Fentanyl 2.0 (H) 1.0 (H) Ur Norfentanyl Quant 36.0 (H) 10.0 (H) U Cocaine Metab Comment SEE NOTE U Benzoylecgonine GC/MS SEE NOTE Ur Carboxy THC GC/MS SEE NOTE 01/26/23 01/29/23 01/29/23 14:00 09:07 09:07 WBC 6.1 RBC 4.74 Hgb 12.9 L Hct 42.2 MCV 89.0 MCH 27.2 MCHC 30.6 L RDW 14.1 Plt Count 339 MPV 9.4 Immature Gran % (Auto) 0.3 Neut % (Auto) 61.8 Lymph % (Auto) 25.0 Steele % (Auto) 5.9 Eos % (Auto) 6.7 H Baso % (Auto) 0.3 Lymph # (Auto) 1.5 Steele # (Auto) 0.4 Eos # (Auto) 0.4 Baso # (Auto) 0.0 Abs Immat Gran (auto) 0.02 Absolute Neuts (auto) 3.8 Absolute Nucleated RBC 0.000 Nucleated RBC % (auto) 0.0 Sodium 142 Potassium 4.3 Chloride 103 Carbon Dioxide 31 H Anion Gap 12 BUN 15 Creatinine 0.81 Estim Creat Clear Calc TNP Estimated GFR > 60 Random Glucose 125 H Calcium 9.9 Total Bilirubin 0.2 AST 38 H ALT 78 H Alkaline Phosphatase 205 H Total Protein 6.8 Albumin 3.9 Urine Fentanyl Screen Urine Fentanyl Ur Norfentanyl Quant U Cocaine Metab Comment SEE COMMENTS U Benzoylecgonine GC/MS 380 (H) Ur Carboxy THC GC/MS DS: Summary Hospital Course Hospital Course: Admission to adult psychiatry for exacerbation of mood disorder and polysubstance use disorder-cocaine,opiate, cannabis. Pt was seen by [facility] and Methadone was initiated, tolerated and pt reported positive effects. Remeron and Olanzapine were initiated with positive effect also. Pt did have a few outbursts of affect during his admission, mostly related to disagreement with unit rules and policy, and was able to resolve this without added distress. Pt will discharge to halfway, he is on a list for admission to programs and will be following up with these on a regular basis. Time spent discussing smoking cessation with patient: 3 to 10 minutes Status at Discharge Functional status at discharge: independent ambulation Overall status at discharge: patient is progressing back to baseline Time Spent with Patient Time attestation: Total time managing care of this patient today ____ minutes. Time spent: Greater than 30 minutes Discharge Plan Discharge Anticipated Discharge Date/Time: 02/04/23 12:39 Patient Disposition: Xfer Other Discharge Diagnosis: Mood Disorder Opiate Use Disorder Cocaine Use Disorder Cannabis Use Disorder Referrals: [place] Hernandez: [facility] [Other] - 02/12/23 11:00 am (Initial Diagnostic Evaluation for Therapy and Psychiatry services Appointment is in office at [facility] You need to attend this appointment in order to receive psychiatric medication management services You have also been referred for a Recovery Support Navigator. ) [facility] [Other] - 1 Week ([facility] Information ) [facility] [Other] - 1 Week ([facility] Information ) [facility] [Other] - 1 Week (Referral for substance use treatment. Patient should follow-up on referral after discharge ) [facility] [Other] - 1 Week (Referral for substance use treatment Patient should follow-up on referral after discharge.) [facility] [Other] - 1 Week (Referral to [facility] for substance use treatment Patient currently on wait list. Patient needs to check in weekly to express interest in program and maintain place on wait list.) [facility] [Other] - 1 Week (follow up for primary care) Discharge Medications: New multivitamin [Daily-Mirian] Tablet 1 tab PO DAILY Qty: 30 0RF olanzapine 10 mg Tablet 10 mg PO BEDTIME Qty: 30 0RF folic acid 1 mg Tablet 1 mg PO DAILY Qty: 30 0RF methadone [Methadose] 10 mg/mL Concentrate 20 mg PO DAILY Qty: 0 0RF Rx Instructions: Partial Fill upon patient request. loratadine 10 mg Tablet 10 mg PO DAILY Qty: 30 0RF mirtazapine 7.5 mg Tablet 7.5 mg PO BEDTIME Qty: 30 0RF thiamine mononitrate (vit B1) 100 mg Tablet 100 mg PO DAILY Qty: 30 0RF Discharge Orders: Discharge Order (Routine); Ordered 02/03/23 Ordered By: Mitzy Rosas Diet: Advance to usual diet Activity on Discharge: As tolerated Stand Alone Forms: Patient Portal Discharge page, Community Support Care Plan Goals: Mood and Behavioral Stabilization Work on Sobriety Health Concerns: Mood and Behavioral Stabilization Work on Sobriety Plan of Treatment: Attend scheduled appointments Take medications as directed Assessment: Pt interviewed prior to discharge and found to be fully oriented and without any SI or HI. Pt has insight and demonstrates good judgment in terms of wanting to pursue treatment. Pt is not in imminent risk of harm to self or others and has a safety plan that includes presenting to the closest ER or calling 911 if feeling unsafe. Pt has been observed closely by nursing and unit staff throughout admission. Pt has not engaged in any behaviors that suggest dangerousness to self or others and has demonstrated appropriate behaviors and impulse control. Discharge Date/Time: 02/04/23 11:20
== END 2023-02-04 11:20 | disposition other institution (70) | DRG 753 ==
PROVIDERS: Nurse Practitioner Psychiatric/Mental Health; Psychiatry & Neurology Psychiatry; Admitting Provider Psychiatry & Neurology Psychiatry; Visit Provider Clinical Nurse Specialist Psychiatric/Mental Health, Adult
DX: F39 Unspecified mood [affective] disorder (principal); R45.851 Suicidal ideations; F14.10 Cocaine abuse, uncomplicated; I45.10 Unspecified right bundle-branch block; F12.10 Cannabis abuse, uncomplicated; F19.10 Other psychoactive substance abuse, uncomplicated; F11.20 Opioid dependence, uncomplicated; Z59.02 Unsheltered homelessness; Z87.891 Personal history of nicotine dependence; Z79.899 Other long term (current) drug therapy
CPT/HCPCS: 36415; 80053; 80061; 80307; 80349; 80353; 80354; 82607; 82746; 83036; 84439; 84443; 85025; 93005

== ENCOUNTER 2023-09-16 20:56 | Inpatient (IN) | payer MEDICAID, OTHER, SELFPAY ==
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
--- OUTSIDE RECORDS SUMMARY | 2023-09-16 20:59 | XMS_ITS | Continuity of Care Document ---
Author Name Unknown Organization [facility] ter Address [address] [place] [address]- Care Team Providers Care Hub Cutter Name Role Phone Not on Staff, PCP Primary Care Physician Unavail able [place] [facility] [place] - 06/14/[address] [address]- Encounter Diagnosis Substance use disorder(Final) - 06/14/23 Discharge Disposition: A-D/C Home Attending Physician: Shreyas Page MD Admitting Physician: Shreyas Page MD Referring Physician: Not on Staff, Referring [...] 3 Oxygen Saturation [94-100 %] 98 % (06/14/23 8:18 AM) 91 % *L* (06/14/23 6:56 AM) 95 % (06/14/23 3:18 AM) Pulse Rate [55-90 bpm] 70 bpm (06/14/23 8:18 AM) 78 bpm (06/14/23 6:56 AM) 76 bpm (06/14/23 3:18 AM) Blood Pressure [90-138/55-84 mm Hg] 110/82mm Hg (06/14/23 8:18 AM) 96/50mm Hg (06/14/23 6:56 AM) 103/62mm Hg (06/14/23 3:18 AM) Respiratory Rate [16-30 br/min] 18 br/min (06/14/23 8:18 AM) 20 br/min (06/14/23 6:56 AM) 18 br/min (06/14/23 3:18 AM) Temperature [96.8-100.4 DegF] 98.6 DegF (06/14/23 8:18 AM) 98.6 DegF (06/14/23 1:30 AM) Mode of Delivery (Oxygen) Room air (06/14/23 8:18 AM) Room air (06/14/23 6:56 AM) Room air (06/14/23 3:18 AM) Temperature Route Oral (06/14/23 8:18 AM) Oral (06/14/23 1:30 AM) Social History Social History Type Response Smoking Status Former smoker, quit more than 30 days ago entered on: 08/30/21 Sex Male Note * Taniya ZAVALETA, Brayan Mayo: PERFORM Event Display: Patient Education Leaflets Authored Date: [id number] Alcohol and Substance Abuse Disorder Resources ?? 703 Alcohol & Substance Use Disorder Resources? Short-term Detox Programs ?? - you can call these facilities directly to see if a bed is available ??? however, you may be told to call back every 2 hours ??? if you are told this, PLEASE follow those instructions! Bed availability can change very quickly! ? [facility] ??? ([place] ??? provides transportation) ??? [facility] ??? [phone] ([place]) ??? [facility] (Veterans only) ??? [phone] ([place] ??? [facility] ??? [phone] ([place]) ??? [facility] ??? [facility]- ([place]) ??? [facility] ??? / [phone] ([place]) ??? [facility] -?? [phone] ([place]) ??? [facility] ??? / ([place]) ??? [facility] - [phone] ([place]) ??? [facility] - [phone] ([place]) ??? [facility] - [phone] ([place]) ??? [facility] [phone] dispensary ([place]) ??? [facility] - [phone] ??([place]) ??? [facility] - [phone] ([place]) ??? [facility] - [phone] ([place]) ???[facility] - [phone] ([place]) ??? [facility] - [phone] ([place]) ??? [facility] - [phone] - ([place]) ??? [place] [facility] - [phone] ([place]) ??? [facility] - [phone] ([place]) ??? [facility] - [phone] ([place]) ??? [facility] - [phone] ([place]) ??? [facility] - [phone] ([place]) ??? [facility] [place] - [phone] ([place]) ??? [facility] - [phone] ([place]) ??? [facility] - [phone] ([place]) ??? [facility] [place] ??? [phone] Intensive Outpatient / Day Treatment Programs ??? some programs offer mornings, some evenings, someboth. Call for more information. Can usually call directly for an intake appointment. Some insurances may require a referral from your doctor. ? [facility] ??? IOP ??? [phone] ([place]) ??? [facility] ??? IOP ??? [phone] ([place]) ??? [facility] ??? IOP ??? [phone] ([place]) ??? [facility] ??? [facility] ??? IOP ??? [phone] ([place]) ??? [facility] -IOP- [phone] or [phone] ?? Outpatient Clinics Specializing in Substance Use Disorder Treatment ??? call directly for information or an intake appointment ??? [facility] - [phone] ([place]) ??? [facility] - [phone] ([place]) ??? [facility] - [phone] ??? [facility] - [phone] ([place]) ??? [facility] - [phone] ([place]) ??? [facility] - [phone] ([place]), ([place]), ([place]) ??? [facility] ([place])- [phone] ([place]) ??? [facility] - [phone] ([place]) ??? [facility] - [phone] ([place]) ??? [facility] - [phone] ([place]) ??? [facility] - [phone] ([place]) ??? [facility] - [phone] ([place]) ??? [facility] - [phone] ([place]) ??? [facility] - [phone] ([place]) ??? [facility] - [phone] ([place]) ??? [facility] - [phone] ([place]) ??? [facility] - [phone] ([place]) ??? [facility] - [phone] ([place]) ? ? [facility] - [phone] ([place]) ??? [facility]patient Services - [phone] ([place]) ?? Medication Assisted Treatment Programs ??? Call directly for information or for intake ?? Methadone ??? [facility] ([place]) - [phone] ([place]) ??? [facility] - ??[phone] ([place]) ??? Health Care Resource Centers?? Multiple Locations ??? Call Main # ??for intake at any site ??? [phone] ??? [facility] Clinic ??? [phone] ??? [place] (methadone, suboxone & vivitrol) Suboxone, Vivitrol, Sublocade (Call for information) ??? [facility] ??? [phone] ([place]) ??? [facility] ??? [phone] ([place]) ??? [facility] ([place]) - [phone] ([place]) ??? [facility] ??? [phone] ([facility], Main #) ??? [facility] - [phone] ([facility] Main #) ??? [facility] ??? ([place] ) [phone] ?? CSS & Long-Term Residential Programs ? Typically require a referral from a detox or other interim residential program ??? call for information ??? [facility] ??? men ??? [phone] ([place]) ??? [facility] ??? women ??? [phone] ([place]) ??? [facility] ??? men - ([place]) ??? [facility] ??? men/women ??? 1- ([place]) ??? [facility] ??? men/women [phone] ([place]) ??? [facility] ??? women ??? Intake: [phone]; ([place]) ??? [facility] ??? Men - [phone] ([place]) ??? [facility] ??? women ??? [phone] ([place]) ??? [facility] - [phone] ([place]) ??? [facility] ??? Kyra ([facility]) - ([facility]) ??? [facility] ??? woman w/ children ??? [phone] ??? ([place]) ??? [facility] ??? men/women [phone] ([place]) ??? [facility] ??? men ??? [phone] ([place]) ??? [facility] ??? women ??? [phone] ([place]) ??? [facility] ??? men/women - [phone] ([place]) ??? [facility] ??? men/women - [phone] ext. [phone] ([place]) ??? [facility] - men/women - [phone] - ([place]) ??? [facility] - men/women - Intake - ??? ([place]) ??? [facility] CSS - men/women - [phone] ([place]) ??? [facility] ??? Kyra ([facility]) - [phone] ([facility]) ?? Hotlines ??? To find a meeting or for peer support ??? Alcoholics Anonymous ??? [phone] ??? Narcotics Anonymous ? Gamblers Anonymous ? Support for Families & Friends ? To find a meeting or for peer support ? ? Al-Anon ? [phone], ??? [place]-Anon ??? [phone] ??? Al-A-Teen ??? [phone] ??? Learn to [place] ??? [phone] www.ojsyc8opin.org For Additional Resources Statewide call: ?? [place] Substance Abuse Information Hotline ? (30/03) To search online for [place] services and possible bed availability (local & statewide): https://www.Home Inventory S[pecialists ?? Click on ???substance use search?? and ??use the drop-down box to choose type of facility (ATS = detox) ? Patient Care team information Care Team Personnel Name: Zuleyma Yoder Position: [facility] RN Member Role: Primary Care Nurse Name: Kelsey Smiley RN Position: [facility] RN Member Role: Primary Care Nurse Name: Yvrose Ellison LPN Position: [facility] RN Member Role: Primary Care Nurse Name: Clark Pastor RN Position: [facility] RN Member Role: Primary Care Nurse Name: Rosina Morales RN Position: [facility] RN Member Role: Primary Care Nurse Name: Jenelle Arnold RN Position: [facility] RN Member Role: Primary Care Nurse Name: Yokasta Sutton RN Position: [facility] RN Member Role: Primary Care Nurse Name: Akanksha Mejias RN Position: [facility] RN Member Role: Primary Care Nurse Name: Not on Staff, PCP Position: [facility] Physician (General Medicine) Member Role: PCP Name: Adriana Godwin RN Position: [facility] RN Member Role: Primary Care Nurse Name: Ana María Valentin RN Position: [facility] RN Member Role: Primary Care Nurse Name: Ron Billings RN Position: [facility] RN Member Role: Primary Care Nurse Name: Khushbu Yates RN Position: [facility] RN Member Role: Primary Care Nurse Name: Cristin Zaldivar RN Position: [facility] RN Member Role: Primary Care Nurse Name: *[facility], ED Attending Position: [facility] ED Attendings Patient Name: Shreyas Page MD Position: [facility] ED Medicine MD Member Role: Admitting Physician Address: Address: [address] [place] [id number] Name: Jonathan Cherelle Position: [facility] ED [facility] Member Role: Wire Hanger Name: Martir De Leon RN Position: [facility] ED RN W/OE and Tasks Member Role: Patient Care Provider Care Team Related Persons Name: EVIE DEVINE Address: home [address] [address] Name: ZINA COY Address: home [address] [place] [address] Name: DORIS COY Address: home [address] [place] [address] Name: MORENO COY
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
--- OUTSIDE RECORDS SUMMARY | 2023-09-16 20:59 | XMS_ITS | Continuity of Care Document ---
Author Name Unknown Organization [facility] ter Address [address] [place] [address]- Care Team Providers Care Vegetable Inspector Name Role Phone Not on Staff, PCP Primary Care Physician Unavail able Encounter [facility] Date(s): 06/27/23 - 06/27/23 [facility] [address] [place] [address]- Encounter Diagnosis Cocaine use(Final) - 06/27/23 Discharge Disposition: A-D/C Home Attending Physician: Jas Arce DO Admitting Physician: Jas Arce DO Referring Physician: Not on Staff, Referring MD [...] Range]: 1 2 Oxygen Saturation [94-100 %] 100 % (06/27/23 8:51 AM) 97 % (06/27/23 6:13 AM) Pulse Rate [55-90 bpm] 55 bpm (06/27/23 8:51 AM) 71 bpm (06/27/23 6:13 AM) Blood Pressure [90-138/55-84 mm Hg] 110/ 65mm Hg (06/27/23 8:51 AM) 106/51mm Hg (06/27/23 6:13 AM) Respiratory Rate [16-30 br/min] 18 br/mi n (06/27/23 8:51 AM) 12 br/min *L* (06/27/23 6:13 AM) Temperature [96.8-100.4 DegF] 98.1 DegF (06/27/23 8:51 AM) 97.3 DegF (06/27/23 6:13 AM) Mode of Delivery (Oxygen) room air (06/27/23 8:51 AM) Room air (06/27/23 6:13 AM) Blood pressure sites Arm, right (06/27/23 8:51 AM) Arm, right (06/27/23 6:13 AM) Temperature Route Oral (06/27/23 8:51 AM) Axillary (06/27/23 6:13 AM) Social History Social History Type Response Smoking Status Former smoker, quit more than 30 days ago entered on: 08/30/21 Sex Male Note * Jas Arce DO: PERFORM Event Display: Patient Education Leaflets Authored Date: [id number] Alcohol Intoxication ?? [id number] Alcohol Intoxication Alcohol intoxication is very serious. [...] to families at www.al-anon.org . Or call 039-255-7260. ??? SMART Recovery ( Self- Management and Recovery Training). A nationwide abstinence-oriented support group for people with addictive issues. This free program is focused on motivation to change, urge control, and living a balanced life. For more information and meetings near you, go to www.Milo.org/ ??? Substance Abuse and Mental Health Services Administration (SAMHSA) Treatment Punch Hand. Free information on treatment resources in your area at https://findtreatment.gov/. Or call 553-982-8292. Call 911 Call 911 if any of [...] vomiting ?? Last Reviewed Date: 2021 ?? 8654-9371 The [employer]. All rights reserved. This information is not intended as a substitute for professional medical care. Always follow your healthcare professional's instructions. ?? Patient Care team information Care Team Personnel Name: Zuleyma Yoder Position: [facility] RN Member Role: Primary Care Nurse Name: Kelsey Smiley RN Position: [facility] RN Member Role: Primary Care Nurse Name: Yvrose Ellison LPN Position: [facility] RN Member Role: Primary Care Nurse Name: Clark Pastor RN Position: [facility] RN Member Role: Primary Care Nurse Name: Rosina Morales RN Position: [facility] RN Member Role: Primary Care Nurse Name: Jenelle Arnold RN Position: [facility] RN Member Role: Primary Care Nurse Name: Yokasta Sutton RN Position: [facility] RN Member Role: Primary Care Nurse Name: Akanksha Mejias RN Position: [facility] RN Member Role: Primary Care Nurse Name: Not on Staff, PCP Position: [facility] Physician (General Medicine) Member Role: PCP Name: Adriana Godwin RN Position: [facility] RN Member Role: Primary Care Nurse Name: Ana María Valentin RN Position: [facility] RN Member Role: Primary Care Nurse Name: Ron Billings RN Position: [facility] RN Member Role: Primary Care Nurse Name: Khushbu Yates RN Position: [facility] RN Member Role: Primary Care Nurse Name: Cristin Zaldivar RN Position: [facility] RN Member Role: Primary Care Nurse [facility] Attending Position: [facility] ED Attendings Patient Name: Jas Arce DO Position: [facility] ED Medicine MD Member Role: Admitting Physician Address: Address: [address] [place] [id number] Name: Whitney Schroeder Position: [facility] ED TA [facility] Member Role: Patient Care Provider Name: Martir De Leon RN Position: [facility] ED RN W/OE and Tasks Member Role: Patient Care Provider Care Team Related Persons Name: [place]IE Address: home [address] [address] Name: ZINA COY Address: home [address] [place] [address] Name: DORIS COY Address: home [address] [place] [address] Name: MORENO COY
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
--- OUTSIDE RECORDS SUMMARY | 2023-09-16 21:00 | XMS_ITS | Continuity of Care Document ---
Author Name Unknown Organization [facility] ter Address [address] [place] [address]- Care Team Providers Care Holter Scanning Technician Name Role Phone Not on Staff, PCP Primary Care Physician Unavail able Encounter [facility] Date(s): 07/21/23 - 07/21/[address] [address]- Encounter Diagnosis Agitation(Final) - 07/21/23 Discharge Disposition: A-D/C Home Attending Physician: Sam Santiago MD Admitting Physician: Sam Santiago MD Referring Physician: Not on Staff, Referring [...] Most recent to oldest [Reference Range]: 1 Oxygen Saturation [94-100 %] 99 % (07/21/23 2:25 PM) Pulse Rate [55-90 bpm] 79 bpm (07/21/23 2:25 PM) Blood Pressure [90-138/55-84 mm Hg] 122/ 70mm Hg (07/21/23 2:25 PM) Respiratory Rate [16-30 br/min] 14 br/mi n *L* (07/21/23 2:25 PM) Temperature [96.8-100.4 DegF] 97.4 DegF (07/21/23 2:25 PM) Mode of Delivery (Oxygen) Room air (07/21/23 2:25 PM) Blood pressure sites Arm, right (07/21/23 2:25 PM) Temperature Route Oral (07/21/23 2:25 PM) Social History Social History Type Response Smoking Status Former smoker, quit more than 30 days ago entered on: 08/30/21 Sex Male Patient Care team information Care Team Personnel Name: Zuleyma Yoder Position: [facility] RN Member Role: Primary Care Nurse Name: Kelsey Smiley RN Position: [facility] RN Member Role: Primary Care Nurse Name: Yvrose Ellison LPN Position: [facility] RN Member Role: Primary Care Nurse Name: Clark Pastor RN Position: [facility] RN Member Role: Primary Care Nurse Name: Rosina Morales RN Position: [facility] RN Member Role: Primary Care Nurse Name: Jenelle Arnold RN Position: [facility] RN Member Role: Primary Care Nurse Name: Yokasta Sutton RN Position: [facility] RN Member Role: Primary Care Nurse Name: Akanksha Mejias RN Position: [facility] RN Member Role: Primary Care Nurse Name: Not on Staff, PCP Position: [facility] Physician (General Medicine) Member Role: PCP Name: Adriana Godwin RN Position: [facility] RN Member Role: Primary Care Nurse Name: Ana María Valentin RN Position: [facility] RN Member Role: Primary Care Nurse Name: Ron Billings RN Position: [facility] RN Member Role: Primary Care Nurse Name: Khushbu Yates RN Position: [facility] RN Member Role: Primary Care Nurse Name: Cristin Zaldivar RN Position: [facility] RN Member Role: Primary Care Nurse Name: Perry Das DO Position: S Resident Member Role: ED Resident Address: Address: [address] [place] [address] [place] [address] Name: Marlena Argueta Position: [facility] ED OSMIN MUJICA Name: Jazz Willis RN Position: [facility] ED RN W/OE and Tasks Member Role: Patient Care Provider Name: Sam Santiago MD Position: [facility] Resident Member Role: Admitting Physician Address: Address: [address] [place] [address] [place] [address]- Care Team Related Persons Name: EVIE DEVINE Address: [address] [address] Name: ZINA COY Address: [address] [place] [address] Name: DORIS COY Address: home [address] [place] [address] Name: MORENO COY
--- OUTSIDE RECORDS SUMMARY | 2023-09-16 21:00 | XMS_ITS | Continuity of Care Document ---
Author Name Unknown Organization [facility] ter Address [address] [place] [address]- Care Team Providers Care Check Scaler Name Role Phone Not on Staff, PCP Primary Care Physician Unavail able Encounter [facility] Date(s): 03/17/23 - 03/17/[address] [address]- Discharge Disposition: A-D/C Home Attending Physician: Joce Echols MD Admitting Physician: Joce Echols MD Referring Physician: Not on Staff, Referring [...] 1 2 3 Oxygen Saturation [94-100 %] 94 % (03/17/23 6:42 AM) 100 % (03/17/23 4:09 AM) 94 % (03/17/23 2:45 AM) Pulse Rate [55-90 bpm] 57 bpm (03/17/23 6:42 AM) 69 bpm (03/17/23 4:09 AM) 77 bpm (03/17/23 2:45 AM) Blood Pressure [90-138/55-84 mm Hg] 142/100mm Hg *H* (03/17/23 6:42 AM) 110/65mm Hg (03/17/23 4:09 AM) 128/61mm Hg (03/17/23 2:45 AM) Respiratory Rate [16-30 br/min] 16 br/min (03/17/23 6:42 AM) 11 br/min *L* (03/17/23 4:09 AM) 8 br/min *L* (03/17/23 2:45 AM) Temperature [96.8-100.4 DegF] 98.6 DegF (03/17/23 6:42 AM) 98.1 DegF (03/17/23 2:45 AM) Mode of Delivery (Oxygen) Room air (03/17/23 6:42 AM) Room air (03/17/23 4:09 AM) Room air (03/17/23 2:45 AM) Blood pressure sites Arm, left (03/17/23 6:42 AM) Arm, left (03/17/23 2:45 AM) Temperature Route Oral (03/17/23 6:42 AM) Oral (03/17/23 2:45 AM) Social History Social History Type Response Smoking Status Former smoker, quit more than 30 days ago entered on: 08/30/21 Sex Male Note * Nj Grossman MD: PERFORM Event Display: Patient Education Leaflets Authored Date: [id number] Opiate Overdose ?? [id number] Opiate Overdose You've been treated for an overdose of opiates, such as a prescription pain medicine or heroin.??Taking too many opiates is dangerous. They cause breathing to slow and possibly stop.??If you stop breathing for more than 2 to 3 minutes, your heart can stop and you will . Deaths from opiate overdose are a national epidemic. In 2019, the CDC estimated that more than 49,860 people in the [place] diedfrom an opioid overdose. This number reflects 70.6% of all drug overdose deaths. Signs and symptoms of overdose Symptoms can depend on how much of the drug and which ones were used. They include: ??? Trouble breathing or slow irregular breathing; breathing may even stop, which can cause ??? Drowsiness, trouble arousing, or coma ??? Small, pinpoint pupils ??? Cyanosis. This is when lips and nails appear blue because you don't have enough oxygen in the blood. ??? Slow heart rate ??? Lowbody temperature (hypothermia) ??? Muscle spasm ??? Seizures ??? If your overdose was severe, you may have been given an antidote, such as naloxone. The antidote effect lasts for about 1 to 2 hours.??If the opiate has not left your system by the time the antidote medicine wears off, your symptoms may return. These symptoms include drowsiness and slow breathing.?? If you were addicted and physically dependent on opiates, then naloxone may cause withdrawal symptoms to appear right away.??These may consist of: ??? Body aches ??? Diarrhea ??? Abdominal cramps ??? Upset stomach (nausea) ??? Vomiting ??? Runny nose ??? Sneezing ??? Sweating ??? Yawning ??? Restlessness ??? Irritability ??? Trembling These symptoms will go away as the naloxone wears off. ?? Home care The following guidelines will help you care for yourself at home: ??? Rest for the next [address] or operate any vehicle or dangerous equipment until all opioid effects have worn off and you no longer feel sleepy or drowsy. ??? If you were previously prescribed opioid medicines for pain, don't take any more of this medicine for the next 6 to 8 hours, unless your healthcare provider says it's safe to do so. ??? If opioids or other drugs were swallowed, you may have been given liquid charcoal to neutralize those drugs.??The charcoal may cause nausea and vomiting over the next few hours. It will also cause a black color to your stools for the next 1 to 2 days. Usually, you will be given a laxative with the charcoal to speed the removal of any toxins from the digestive tract. This may cause diarrhea for up to 24 hours. If no laxative was given, you may become constipated. If this happens, you may take an tasv-fts-heabged laxative or suppository. ?? Follow-up care Follow up with your healthcare provider, or as advised if all symptoms don't go away within 24 hours, or if constipation is not eased after 2 doses of laxatives.??If your overdose was related to a drug addiction, seek drug counseling. Consider a drug treatment program to help break your habit. ?? Call 911 Call 911 if any of the following occur: ??? Seizure ??? Trouble breathing or slow irregular breathing ??? Chest pain ??? Sudden weakness on 1 side of your body or sudden trouble speaking ??? Very drowsy or having trouble waking up ??? Fainting or loss of consciousness ??? Rapid heart rate ??? Very slow heart rate ?? When to get medical advice Call your healthcare provider right away if any of the following occur: ??? Cough with colored sputum ??? Fever of 100.4??F (38??C) or higher, or as directed by your healthcare provider ??? Redness, swelling or tenderness at the heroin injection site (if using IV drugs) ??? Feeling that you might harm yourself or another Talk with your healthcare provider if you feel that you want to get drugs and would like to enter acounseling or rehabilitation program. ?? Last Reviewed Date: 2022 ?? [id number] [employer]. All rights reserved. This information is not intended as a substitute for professional medical care. Always follow your healthcare professional's instructions. ?? Patient Care team information Care Team Personnel Name: Zuleyma Yoder Position: [facility] RN Member Role: Primary Care Nurse Name: Rosina Morales RN Position: [facility] RN Member Role: Primary Care Nurse Name: Jenelle Arnold RN Position: [facility] RN Supv Member Role: Primary Care Nurse Name: Yokasta Sutton RN Position: [facility] RN Member Role: Primary Care Nurse Name: Not on Staff, PCP Position: [facility] Physician (General Medicine) Member Role: PCP Name: Adriana Godwin RN Position: [facility] RN Member Role: Primary Care Nurse Name: Ana María Valentin RN Position: [facility] RN Supv Member Role: Primary Care Nurse Name: Ron Billings RN Position: [facility] RN Member Role: Primary Care Nurse Name: Cristin Zaldivar RN Position: [facility] RN Member Role: Primary Care Nurse Name: Nj Grossman MD Position: S Resident Member Role: ED Resident Address: Address: [address] [place] [address] [place] [address]- [place] Name: Wendy Colmenares RN Position: [facility] ED RN W/OE and Tasks Member Role: Patient Care Provider Name: Joce Echols MD Position: [facility] ED Medicine MD Member Role: Admitting Physician Address: Address: [address] [place] [address] [place] [address]- Name: Selena Power Position: [facility] ED [facility] Member Role: Primer Inserting Machine Adjuster Care Team Related Persons Name: EVIE DEVINE Address: home [facility] [address] [place] [id number] Name: ZINA COY Address: [address] [place] [address] Name: DORIS COY Address: [address] [place] [address] Name: ARMANDO COY
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
--- OUTSIDE RECORDS SUMMARY | 2023-09-16 21:00 | XMS_ITS | Continuity of Care Document ---
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 [facility] ED TA [facility] Member Role: Cytotechnologist Name: Marcela Rosenberg Position: [facility] ED OA Charge Member Role: ED Associate Name: Ni Solorio DO Position: [facility] Resident Member Role: ED Resident Address: Address: [address] [place] [address] [place], [place] [address] Name: Deric Tao Position: [facility] ED TA [facility] Care Team Related Persons Name: EVIE DEVINE Address: home [address] [address] Name: ZINA COY Address: home [address] [place] [address] Name: DORIS COY Address: [address] [place] [address] Name: MORENO COY
--- OUTSIDE RECORDS SUMMARY | 2023-09-16 21:00 | XMS_ITS | Continuity of Care Document ---
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 Name Role Phone Not on Staff, PCP Primary Care Physician Unavail able [place] [facility] [place] - 01/17/[address] [address]- Discharge Disposition: A-D/C Walkout Attending Physician: Lukasz Baron MD Admitting Physician: Lukasz Baron MD Referring Physician: Not on Staff, Referring MD Allergies, Adverse Reactions, Alerts Substance Reaction Severity Status shellfish Active Immunizations Given and Recorded Vaccine Date Status Refusal Reason pneumococcal 23-valent vaccine 07/24/17 Given influenza virus vaccine, inactivated 07/24/17 Give n Not Given Vaccine Date Status Refusal Reason pneumococcal 23-valent vaccine 08/21/16 Not Given Patient Refuses influenza virus vaccine, inactivated 08/21/16 Not Given Patient Refuses Medications cholecalciferol 1000 intl units oral tablet 2 tablet = 2,000 International_Units, By Mouth, Daily, # 60 tablet, 0 Refills, Maintenance, 10/30/20 9:22:00 EST, Tablet, [facility] #[id number], Partial fill upon patient request if the prescription is for a schedule II opioid drug., 170, cm, 02... Start Date: 10/30/20 Status: Ordered folic acid 1 mg oral tablet 1 mg, 1, tablet, By Mouth, Daily, # 30 tablet, Refills 0, Tot. Refills 0, Maintenance, 10/30/20 9:22:00 EST, Route to Pharmacy Electronically, [facility] #[id number], Partial fill upon patient request if the prescription is for a schedule II opio... Start Date: 10/30/20 Status: Ordered hydrOXYzine pamoate 50 mg oral capsule 1 capsule = 50 mg, By Mouth, 2 times a day, PRN for anxiety, # 60 capsule, 0 Refills, Maintenance, 10/30/20 9:23:00 EST, Capsule, [facility] #[id number], Partial fill upon patient request if theprescription is for a schedule II opioid drug., 170... Start Date: 10/30/20 Status: Ordered mirtazapine 15 mg oral tablet 2 tablet = 30 mg, By Mouth, Daily at bedtime, # 60 tablet, 0 Refills, Maintenance, 10/30/20 9:23:00EST, Tablet, [facility] #[id number], Partial fill upon patient request if the prescription is for a schedule II opioid drug., 170, cm, 10/30/20 8:... Start Date: 10/30/20 Status: Ordered multivitamin with minerals Multiple Vitamins with Minerals oral tablet 1 tablet, By Mouth, Daily, # 30 tablet, 0 Refills, Maintenance, 10/30/20 9:23:00 EST, [facility] #[id number], Partial fill upon patient request if the prescription is for a schedule II opioid drug., 1 tablet By Mouth Daily, 170, cm, 10/30... Start Date: 10/30/20 Status: Ordered naltrexone 50 mg oral tablet 1 tablet = 50 mg, By Mouth, Daily, # 30 tablet, 0 Refills, Maintenance, 10/30/20 9:23:00 EST, [facility] #[id number], Partial fill upon patient request if the prescription is for a schedule II opioid drug., 170, cm, 10/30/20 8:01:00 EST,... Start Date: 10/30/20 Status: Ordered nicotine 14 mg/24 hr transdermal film, extended release 1 patch, Topically, Daily, # 30 patch, 0 Refills, Maintenance, 10/30/20 9:24:00 EST, Patch, [facility] #[id number], Partial fill upon patient request if the prescription is for a schedule II opioid drug., 1 patch Topically Daily, 170, cm, ... Start Date: 10/30/20 Status: Ordered Nicotine 2 mg gum = 2 mg, Chew, Every 2 hours, PRN Other, Nicotine Cravings, # 160 each, 0 Refills, Maintenance, 10/30/20 9:24:00 EST, Gum, [facility] #[id number], Partial fill upon patient request if the prescription is for a schedule II opioid drug., 170, cm, 02... Start Date: 10/30/20 Status: Ordered thiamine 100 mg oral tablet 100 mg, 1, tablet, By Mouth, Daily, # 30 tablet, Refills 0, Tot. Refills 0, Maintenance, 10/30/20 9:24:00 EST, Route to Pharmacy Electronically, [facility] #[id number], Partial fill upon patientrequest if the prescription is for a schedule II op... Start Date: 10/30/20 Status: Ordered traZODone 50 mg oral tablet 50 mg, 1, tablet, By Mouth, Daily at bedtime, PRN, # 30 tablet, Refills 0, Tot. Refills 0, Maintenance, Sleep, 10/30/20 9:24:00 EST, Route to Pharmacy Electronically, [facility] #[id number], Partial fill upon patient request if the prescription i... Start Date: 10/30/20 Status: Ordered Problem List Condition Effective Dates Status Health Status Inform ant No diagnosis on axis III(Confirmed) Active Vital Signs Most recent to oldest [Reference Range]: 1 2 Oxygen Saturation [94-100 %] 98 % (01/17/21 12:53 PM) 100 % (01/17/21 12:34 PM) Pulse Rate [55-90 bpm] 80 bpm (01/17/21 12:53 PM) 100 bpm *H* (01/17/21 12:34 PM) Blood Pressure [90-138/55-84 mm Hg] 104/ 64mm Hg (01/17/21 12:53 PM) Respiratory Rate [16-30 br/min] 16 br/mi n (01/17/21 12:53 PM) 18 br/min (01/17/21 12:34 PM) Temperature [96.8-100.4 DegF] 98 DegF (01/17/21 12:53 PM) Mode of Delivery (Oxygen) Room air (01/17/21 12:53 PM) Temperature Route Oral (01/17/21 12:53 PM) Social History Social History Type Response Smoking Status Current every day sm oker; Type: Cigarettes; Other: 1 ppd cigarettes; entered on: 02/20/17 Sex
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
--- OUTSIDE RECORDS SUMMARY | 2023-09-16 21:00 | XMS_ITS | Continuity of Care Document ---
Author Name Unknown Organization [facility] ter Address [address] [place] [address]- Care Team Providers Care [employer] Name Role Phone Not on Staff, PCP Primary Care Physician Unavail able Encounter [facility] Date(s): 12/25/22 - 12/26/[address] [address]- Encounter Diagnosis Opioid overdose(Final) - 12/25/22 Discharge Disposition: Transfer to Psych Facility Attending Physician: Joce Medrano MD Admitting Physician: Joce Medrano MD Referring Physician: Not on Staff, Referring [...] 1 2 3 Oxygen Saturation [94-100 %] 100 % (12/26/22 8:54 AM) 98 % (12/26/22 5:25 AM) 95 % (12/26/22 12:21 AM) Pulse Rate [55-90 bpm] 78 bpm (12/26/22 8:54 AM) 87 bpm (12/26/22 5:25 AM) 93 bpm *H* (12/26/22 12:21 AM) Blood Pressure [90-138/55-84 mm Hg] 113/68mm Hg (12/26/22 8:54 AM) 114/73mm Hg (12/26/22 5:25 AM) 120/64mm Hg (12/26/22 12:21 AM) Respiratory Rate [16-30 br/min] 16 br/min (12/26/22 8:54 AM) 18 br/min (12/26/22 5:25 AM) 20 br/min (12/26/22 12:21 AM) Temperature [96.8-100.4 DegF] 97.9 DegF (12/26/22 8:54 AM) 97.9 DegF (12/25/22 9:06 PM) 98.2 DegF (12/25/22 4:03 PM) Mode of Delivery (Oxygen) Room air (12/26/22 8:54 AM) Room air (12/26/22 5:25 AM) Room air (12/26/22 12:21 AM) Temperature Route Oral (12/26/22 8:54 AM) Oral (12/25/22 9:06 PM) Oral (12/25/22 4:03 PM) Social History Social History Type Response Smoking Status Former smoker, quit more than 30 days ago entered on: 08/30/21 Sex Patient Care team information Care Team Personnel Name: Zuleyma Yoder Position: [facility] RN Member Role: Primary Care Nurse Name: Rosina Morales RN Position: [facility] RN Member Role: Primary Care Nurse Name: Jenelle Arnold RN Position: [facility] RN Supv Member Role: Primary Care Nurse Name: Yokasta Sutton RN Position: [facility] RN Member Role: Primary Care Nurse Name: Not on Staff, PCP Position: [facility] Physician (General Medicine) Member Role: PCP Name: Adriana Godwin RN Position: [facility] RN Member Role: Primary Care Nurse Name: Ana María Valentin RN Position: [facility] RN Supv Member Role: Primary Care Nurse Name: Ron Billings RN Position: [facility] RN Member Role: Primary Care Nurse Name: Cristin Zaldivar RN Position: [facility] RN Member Role: Primary Care Nurse Name: Ni Gunter RN Position: [facility] ED RN W/OE and Tasks Member Role: Patient Care Provider Name: Joce Medrano MD Position: [facility] ED Medicine MD Member Role: Admitting Physician Address: Address: [address] [place] [id number]- [place] Name: Ni Solorio DO Position: [facility] Resident Member Role: ED Resident Address: Address: [address] [place] [id number]- Name: Phoebe Lam Position: [facility] ED TA [facility] Care Team Related Persons Name: EVIE DEVINE Address: home [address] [place] [id number] Name: ZINA CYO Address: [address] [place] [address] Name: DORIS COY Address: [address] [place] [address]
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
--- OUTSIDE RECORDS SUMMARY | 2023-09-16 21:00 | XMS_ITS | Continuity of Care Document ---
Author Name Unknown Organization [facility] [place] Address [address] [place] [address]- Care Team Providers Care Carrier Washer Name Role Phone Not on Staff, PCP Primary Care Physician Unavail able Encounter [facility] Date(s): 05/09/20 - 05/09/[address] [address] [phone] Discharge Disposition: A-D/C Home Attending Physician: Wilbur Gar MD Admitting Physician: Wilbur Gar MD Referring Physician: Not on Staff, Referring [...] inactivated 08/21/16 Not Given Patient Refuses Medications erythromycin 0.5% ophthalmic ointment 0.5 inches, Eye, Right, 4 times a day, # 3.5 Gm, 0 Refills, Maintenance, 02/20/17 16:17:11, Ophth Ointment Start Date: 02/20/17 Stop Date: 02/27/17 Status: Ordered folic acid 1 mg oral tablet 1 mg, By Mouth, Daily, # 30 tablet, Refills 0, Tot. Refills 0, Maintenance, 07/25/17 11:09:59, Route to Pharmacy Electronically, [id number], [id number] Start Date: 07/25/17 Stop Date: 08/24/17 Status: Ordered Pepcid AC Maximum Strength 20 mg oral tablet 20 mg, By Mouth, 2 times a day, # 60 tablet, Refills 0, Tot. Refills 0, Maintenance, 07/25/17 11:09:29, Route to Pharmacy Electronically, [id number], [id number] Start Date: 07/25/17 Status: Ordered Zofran 4 mg oral tablet 1 tablet = 4 mg, By Mouth, Every 8 hours, PRN Nausea & Vomiting, # 10 tablet, 0 Refills, Maintenance, 05/09/20 14:25:00 EDT, Tablet, [id number], 170, cm, 05/09/20 13:47:00 EDT, Height, 77.5, kg, 05/09/20 13:47:00 EDT, Dry Weight Start Date: 05/09/20 Status: Ordered Problem List Condition Effective Dates Status Health Status Inform ant No diagnosis on axis III(Confirmed) Active Vital Signs Most recent to oldest [Reference Range]: 1 2 3 Height 170 cm (05/09/20 5:50 PM) 170 cm (05/09/20 1:47 PM) 170 cm (05/09/20 11:33 AM) Weight 77.5 kg (05/09/20 5:50 PM) 77.5 kg (05/09/20 1:47 PM) 77.5 kg (05/09/20 11:33 AM) Oxygen Saturation [94-100 %] 100 % (05/09/20 5:50 PM) 98 % (05/09/20 1:47 PM) 100 % (05/09/20 11:33 AM) Pulse Rate [55-90 bpm] 85 bpm (05/09/20 5:50 PM) 66 bpm (05/09/20 1:47 PM) 61 bpm (05/09/20 11:33 AM) Body Mass Index [18.5-24.99] 26.82 *H* (05/09/20 5:50 PM) 26.82 *H* (05/09/20 1:47 PM) 26.82 *H* (05/09/20 11:33 AM) Blood Pressure [90-138/55-84 mm Hg] 138/77mm Hg (05/09/20 5:50 PM) 104/80mm Hg (05/09/20 1:47 PM) 110/64mm Hg (05/09/20 11:33 AM) Respiratory Rate [16-30 br/min] 16 br/min (05/09/20 5:50 PM) 15 br/min *L* (05/09/20 1:47 PM) 16 br/min (05/09/20 11:33 AM) Temperature [96.8-100.4 DegF] 97.4 DegF (05/09/20 5:50 PM) 97.9 DegF (05/09/20 11:33 AM) 97.8 DegF (05/09/20 8:26 AM) Mode of Delivery (Oxygen) Room air (05/09/20 5:50 PM) Room air (05/09/20 1:47 PM) Room air (05/09/20 11:33 AM) Blood pressure sites Arm, right (05/09/20 5:50 PM) Arm, left (05/09/20 1:47 PM) Arm, left (05/09/20 11:33 AM) Temperature Route Oral (05/09/20 5:50 PM) Oral (05/09/20 11:33 AM) Oral (05/09/20 8:26 AM) Dry Weight 77.5 kg (05/09/20 5:50 PM) 77.5 kg (05/09/20 1:47 PM) 77.5 kg (05/09/20 11:33 AM) Social History Social History Type Response Smoking Status Current every day jourdan shea; Type: Cigarettes; Other: 1 ppd cigarettes; entered on: 02/20/17 Sex
[2023-09-16 21:11] VITALS: BMI 23.0
--- NOTE | 2023-09-17 02:35 | PC.ADMIT ---
Doug was admitted from [facility] on a CV for suicidal ideation to cut his wrists. Doug is alert and oriented X's 4. his affect is flat and his devi is depressed. He allowed a skin check and vital signs but declined to participate in the admission process stating that he was too tired and requested to complete all the documents in the morning. patient orient d to the unit, treatment plan discussed with the patient and initiated, monitor for safety
[2023-09-17 06:00] VITALS: BP 119/58; PULSE 83; RESP 19; TEMP 37.6; O2SAT 96
[2023-09-17] MEDS: Folic Acid 1 MG TABLET PO (08:46)
[2023-09-17] MEDS: Thiamine HCL 100 MG TABLET PO (08:46)
[2023-09-17] MEDS: Cyclobenzaprine HCl 10 MG TABLET PO (08:50)
--- NOTE | 2023-09-17 10:34 | HO.PM.IMCN ---
History of Present Illness Data of Consult Service Date: 09/17/23 Primary Care Provider: None Physician HPI Reason for consult: medical eval I attempted to assess the patient for med consult, he voiced no complaint and wish not participate in the evalatution. Only wants my methadone Review of Systems Review of Systems: refused [facility] Medical History (Updated 02/12/23 @ 00:02 by Adrián Shoemaker) Cannabis use disorder Cocaine use disorder Opioid use disorder Mood disorder Social History Household Members: Unknown / Unable to assess Housing: Unknown / Unable to assess Do you presently have visiting nurse or other home services: No Unable to assess alcohol history related to: Unable to respond Alcohol intake: current Alcohol intake frequency: a few times a week Alcohol type: beer Patient Tobacco Use Status: Former Tobacco user e-Cigarette/Vaping Use: Former Use Second Hand Smoke Exposure: No Substance Use Type: Crack/Cocaine, Marijuana and Other Substance Use Type Other:: tox. positive for methadone, fentanyl, THC, Cocaine Substance Use Frequency: Chronic Longstanding Last Used Substance: Unknown Currently Displaying Signs/Symptoms of Drug Intoxication Withdrawal: No Any prior treatment program specific to substance use: Yes (stated he goes to the [facility], clinic states no dosing X's 2 yr.) Advance Directives: No Advance Directives Information Provided: No Do you have thoughts of harming others: None Do you have a plan to hurt others: No Plan Recently lost weight without trying: Unsure Nutrition Risks: No Nutritional Risk Poor oral hygiene: No service: No Sexual orientation: Straight/Heterosexual Meds Allergies Allergy/AdvReac Type Severity Reaction Status Date / Time seafood Allergy Severe Anaphylaxis Verified 10/22/20 22:18 Active Medications: Current Medications Acetaminophen (Acetaminophen 325 Mg Tablet) 650 mg PO Q6H PRN PRN Reason: Headache/Pain Mild Scale (1-3) Al Hydroxide/Mg Hydroxide (Magnesium Hydrox/Alum Hydrox 30 Ml Oral.Susp) 30 ml PO Q6H PRN PRN Reason: Heartburn/Nausea Clonidine HCl (Clonidine Hcl 0.1 Mg Tablet) 0.1 mg PO Q4H PRN; Protocol PRN Reason: withdrawal/anxiety Cyclobenzaprine HCl (Cyclobenzaprine Hcl 10 Mg Tablet) 10 mg PO TID PRN PRN Reason: muscle aches Last Admin: 09/17/23 08:50 Dose: 10 mg Dicyclomine HCl (Dicyclomine Hcl 10 Mg Capsule) 10 mg PO TID PRN PRN Reason: stomach cramps Folic Acid (Folic Acid 1 Mg Tablet) 1 mg PO DAILY [facility] Last Admin: 09/17/23 08:46 Dose: 1 mg Hydroxyzine HCl (Hydroxyzine Hcl 25 Mg Tablet) 25 mg PO Q6H PRN PRN Reason: Anxiety Loperamide HCl (Loperamide Hcl 2 Mg Capsule) 2 mg PO Q6H PRN PRN Reason: loose stool Magnesium Hydroxide (Milk Of Magnesia 30 Ml Oral.Susp) 30 ml PO DAILY PRN PRN Reason: Constipation Nicotine (Nicotine 21 Mg Patch.Td24) 21 mg TRANSDERMA DAILY PRN PRN Reason: smoking cessation Nicotine Polacrilex (Nicotine Polacrilex 2 Mg Gum) 4 mg BUCCAL Q2H PRN PRN Reason: Nicotine Cravings Olanzapine (Olanzapine 5 Mg Tablet) 5 mg PO TID PRN PRN Reason: agitation Thiamine HCl (Thiamine Hcl 100 Mg Tablet) 100 mg PO DAILY [facility] Last Admin: 09/17/23 08:46 Dose: 100 mg Trazodone HCl (Trazodone Hcl 50 Mg Tablet) 50 mg PO BEDTIME MRX1 PRN PRN Reason: Insomnia Physical Exam Vital Signs and Narrative: Vital Signs: Last Vital Signs Temp 99.6 F 09/17/23 06:00 Pulse 83 09/17/23 06:00 Resp 19 09/17/23 06:00 BP 119/58 L 09/17/23 06:00 Pulse Ox 96 09/17/23 06:00 O2 Del Method Room Air 09/17/23 06:00 BMI result Body Mass Index 23.0 Refused exam Assessment and Plan (1) Mood disorder: Status: Acute (2) Opioid use disorder: Status: Acute (3) Cannabis use disorder: Status: Acute (4) Cocaine use disorder: Status: Acute Plan Patient refused to be assessed, no obvious acute medical issues from chart review. Ask to be reconsult for any new issue or patient becomes agreeable.
[2023-09-17] MEDS: methADONE HCl 20 MG/2 ML ORAL.CONC 30 MG PO (11:05)
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
[2023-09-17 20:15] VITALS: RESP 16
[2023-09-18 08:45] VITALS: BP 142/69; PULSE 95; RESP 16; TEMP 36.6; O2SAT 95
[2023-09-18] MEDS: methADONE HCl 20 MG/2 ML ORAL.CONC 30 MG PO (11:58)
[2023-09-18] MEDS: Folic Acid 1 MG TABLET PO (11:59)
[2023-09-18] MEDS: Thiamine HCL 100 MG TABLET PO (11:59)
--- NOTE | 2023-09-18 13:40 | PC.NURSE ---
PT DECLINED FLU VACCINE.
--- NOTE | 2023-09-18 15:32 | HO.PSYCHPN ---
Subjective Subjective Date of Service: 09/18/23 Reason For Visit: Depression Interim History: in bed, resistant to interview, irritable. dismisses MD quickly, refuses to respond, says he is not feeling well. states he only took methadone twice. indicates he would like to be on methadone maintenance, informed an addiction consult will be placed. per staff, dep 8, anx 0. withdrawn. sleeping all day and all night. Mental Status Exam Mental Status Exam Narrative: lying under his sheet, which is pulled over his head. grunts in response to his name. then some agitation, repositioning in bed, irritable mood. not cooperative. speech incr rate, decr amount. thoughts linear. affect not observed. mood unknown. no SI/HI/AVH expressed. Diagnostics Vital Signs (24Hr): Vital Signs - 24 hr 09/17/23 20:15 09/18/23 08:45 Temperature 97.9 F Pulse Rate 95 Respiratory Rate 16 16 Blood Pressure 142/69 H Pulse Oximetry 95 Oxygen Delivery Method Room Air BMI result Body Mass Index 23.0 Medications Medications Current Medications Acetaminophen (Acetaminophen 325 Mg Tablet) 650 mg PO Q6H PRN PRN Reason: Headache/Pain Mild Scale (1-3) Al Hydroxide/Mg Hydroxide (Magnesium Hydrox/Alum Hydrox 30 Ml Oral.Susp) 30 ml PO Q6H PRN PRN Reason: Heartburn/Nausea Clonidine HCl (Clonidine Hcl 0.1 Mg Tablet) 0.1 mg PO Q4H PRN; Protocol PRN Reason: withdrawal/anxiety Cyclobenzaprine HCl (Cyclobenzaprine Hcl 10 Mg Tablet) 10 mg PO TID PRN PRN Reason: muscle aches Last Admin: 09/17/23 08:50 Dose: 10 mg Dicyclomine HCl (Dicyclomine Hcl 10 Mg Capsule) 10 mg PO TID PRN PRN Reason: stomach cramps Folic Acid (Folic Acid 1 Mg Tablet) 1 mg PO DAILY [facility] Last Admin: 09/18/23 11:59 Dose: 1 mg Hydroxyzine HCl (Hydroxyzine Hcl 25 Mg Tablet) 25 mg PO Q6H PRN PRN Reason: Anxiety Loperamide HCl (Loperamide Hcl 2 Mg Capsule) 2 mg PO Q6H PRN PRN Reason: loose stool Magnesium Hydroxide (Milk Of Magnesia 30 Ml Oral.Susp) 30 ml PO DAILY PRN PRN Reason: Constipation Methadone HCl (Methadone Hcl 20 Mg/2 Ml Oral.Conc) 30 mg PO DAILY [facility] Last Admin: 09/18/23 11:58 Dose: 30 mg Nicotine (Nicotine 21 Mg Patch.Td24) 21 mg TRANSDERMA DAILY PRN PRN Reason: smoking cessation Nicotine Polacrilex (Nicotine Polacrilex 2 Mg Gum) 4 mg BUCCAL Q2H PRN PRN Reason: Nicotine Cravings Olanzapine (Olanzapine 5 Mg Tablet) 5 mg PO TID PRN PRN Reason: agitation Thiamine HCl (Thiamine Hcl 100 Mg Tablet) 100 mg PO DAILY [facility] Last Admin: 09/18/23 11:59 Dose: 100 mg Trazodone HCl (Trazodone Hcl 50 Mg Tablet) 50 mg PO BEDTIME MRX1 PRN PRN Reason: Insomnia Allergies Allergies Allergy/AdvReac Type Severity Reaction Status Date / Time seafood Allergy Severe Anaphylaxis Verified 10/22/20 22:18 Assessment & Plan Assessment & Plan (1) Mood disorder: Status: Acute Code(s): F39 - Unspecified mood [affective] disorder (2) Opioid use disorder: Status: Acute Code(s): F11.90 - Opioid use, unspecified, uncomplicated (3) Cocaine use disorder: Status: Acute Code(s): F14.10 - Cocaine abuse, uncomplicated (4) Cannabis use disorder: Status: Acute Code(s): F12.90 - Cannabis use, unspecified, uncomplicated Plan 09/17: supportive care for withdrawal Sx. once pt is able to engage more with treaters, assess for services/meds which may be of help to pt. 09/18: irritable. says he only had methadone twice but wants to be on methadone maintenance. ordered methadone 30 mg daily and addiction consult. otherwise continue current mgmt. Reason for continued inpatient stay Substantial Risk for: inability to function Time Spent With Patient Time: Total time managing care of this patient today __25__ minutes.
[2023-09-19] MEDS: Thiamine HCL 100 MG TABLET PO (09:27)
[2023-09-19] MEDS: Folic Acid 1 MG TABLET PO (09:27)
[2023-09-19] MEDS: methADONE HCl 20 MG/2 ML ORAL.CONC 30 MG PO (09:28)
[2023-09-19] MEDS: Acetaminophen 325 MG TABLET 650 MG PO (09:34)
--- NOTE | 2023-09-19 13:11 | HO.PSYCHPN ---
Subjective Subjective Date of Service: 09/19/23 Reason For Visit: Depression Subjective Notes: Conditional Voluntary Interim History: Patient was seen and discussed in rounds today. Records and plans were reviewed. She he continues to have depression and anxiety. Mostly in his room. He is guarded. Some episodes of irritability. Eating and sleeping adequately. No SI. No side effects. No changes were made Review of Systems Review of Systems Yes all other systems are reviewed and are negative Diagnostics Vital Signs (24Hr): BMI result Body Mass Index 23.0 Medications Medications Current Medications Acetaminophen (Acetaminophen 325 Mg Tablet) 650 mg PO Q6H PRN PRN Reason: Headache/Pain Mild Scale (1-3) Last Admin: 09/19/23 09:34 Dose: 650 mg Al Hydroxide/Mg Hydroxide (Magnesium Hydrox/Alum Hydrox 30 Ml Oral.Susp) 30 ml PO Q6H PRN PRN Reason: Heartburn/Nausea Clonidine HCl (Clonidine Hcl 0.1 Mg Tablet) 0.1 mg PO Q4H PRN; Protocol PRN Reason: withdrawal/anxiety Cyclobenzaprine HCl (Cyclobenzaprine Hcl 10 Mg Tablet) 10 mg PO TID PRN PRN Reason: muscle aches Last Admin: 09/17/23 08:50 Dose: 10 mg Dicyclomine HCl (Dicyclomine Hcl 10 Mg Capsule) 10 mg PO TID PRN PRN Reason: stomach cramps Folic Acid (Folic Acid 1 Mg Tablet) 1 mg PO DAILY [facility] Last Admin: 09/19/23 09:27 Dose: 1 mg Hydroxyzine HCl (Hydroxyzine Hcl 25 Mg Tablet) 25 mg PO Q6H PRN PRN Reason: Anxiety Loperamide HCl (Loperamide Hcl 2 Mg Capsule) 2 mg PO Q6H PRN PRN Reason: loose stool Magnesium Hydroxide (Milk Of Magnesia 30 Ml Oral.Susp) 30 ml PO DAILY PRN PRN Reason: Constipation Methadone HCl (Methadone Hcl 20 Mg/2 Ml Oral.Conc) 30 mg PO DAILY [facility] Last Admin: 09/19/23 09:28 Dose: 30 mg Nicotine (Nicotine 21 Mg Patch.Td24) 21 mg TRANSDERMA DAILY PRN PRN Reason: smoking cessation Nicotine Polacrilex (Nicotine Polacrilex 2 Mg Gum) 4 mg BUCCAL Q2H PRN PRN Reason: Nicotine Cravings Olanzapine (Olanzapine 5 Mg Tablet) 5 mg PO TID PRN PRN Reason: agitation Thiamine HCl (Thiamine Hcl 100 Mg Tablet) 100 mg PO DAILY [facility] Last Admin: 09/19/23 09:27 Dose: 100 mg Trazodone HCl (Trazodone Hcl 50 Mg Tablet) 50 mg PO BEDTIME MRX1 PRN PRN Reason: Insomnia Allergies Allergies Allergy/AdvReac Type Severity Reaction Status Date / Time seafood Allergy Severe Anaphylaxis Verified 10/22/20 22:18 Assessment & Plan Assessment & Plan (1) Mood disorder: Status: Acute Code(s): F39 - Unspecified mood [affective] disorder (2) Opioid use disorder: Status: Acute Code(s): F11.90 - Opioid use, unspecified, uncomplicated (3) Cocaine use disorder: Status: Acute Code(s): F14.10 - Cocaine abuse, uncomplicated (4) Cannabis use disorder: Status: Acute Code(s): F12.90 - Cannabis use, unspecified, uncomplicated Plan 09/17: supportive care for withdrawal Sx. once pt is able to engage more with treaters, assess for services/meds which may be of help to pt. 09/18: irritable. says he only had methadone twice but wants to be on methadone maintenance. ordered methadone 30 mg daily and addiction consult. otherwi 09/19/23: Continue current regimen and plans Reason for continued inpatient stay Substantial Risk for: med/psych decompensation Time Spent With Patient Time: Total time managing care of this patient today ____ minutes.
--- NOTE | 2023-09-19 14:38 | MHC.RECOVRN ---
Recovery Support RN met with patient in his room 324-1. Patient was laying in bed in the dark with his head covered by a blanket. He did not respond to verbal stimuli, therefore RN lightly touched his shoulder to awaken him. He refused to take the covers off of his head. It was obvious that he was awake- d/t movement of extremities, however he gave no response to this RN's attempts at communicating. Will reattempt another time. Discussed with Ricarda Washburn APRN.
[2023-09-19 20:25] VITALS: BP 115/70; PULSE 89; RESP 16; TEMP 36.6; O2SAT 100
[2023-09-20] MEDS: Thiamine HCL 100 MG TABLET PO (08:52)
[2023-09-20] MEDS: Folic Acid 1 MG TABLET PO (08:52)
[2023-09-20] MEDS: methADONE HCl 20 MG/2 ML ORAL.CONC 30 MG PO (08:53)
[2023-09-20] MEDS: hydrOXYzine HCL 25 MG TABLET PO (10:51)
--- NOTE | 2023-09-20 10:59 | HO.PSYCHPN ---
Subjective Subjective Date of Service: 09/20/23 Reason For Visit: Depression Subjective Notes: Conditional Voluntary Interim History: Patient was seen and reviewed in rounds today. Records and plans were reviewed. He states that he would like to be back on Remeron which he has taken before. I ordered 15 mg. He also was asking for hydroxyzine and trazodone which she already has. He has been isolative. Eating and sleeping adequately. No depression and anxiety reported. No other changes were made Review of Systems Review of Systems Yes all other systems are reviewed and are negative Mental Status Exam Mental Status Exam Narrative: In today's visit he is alert, oriented and pleasant. Normal speech. Good eye contact. Affect is appropriate and slightly irritable. No signs of psychosis. No SI. Cognitively is intact grossly. Judgment is intact Diagnostics Vital Signs (24Hr): Vital Signs - 24 hr 09/19/23 20:25 Temperature 97.8 F Pulse Rate 89 Respiratory Rate 16 Blood Pressure 115/70 Pulse Oximetry 100 Oxygen Delivery Method Room Air BMI result Body Mass Index 23.0 Medications Medications Current Medications Acetaminophen (Acetaminophen 325 Mg Tablet) 650 mg PO Q6H PRN PRN Reason: Headache/Pain Mild Scale (1-3) Last Admin: 09/19/23 09:34 Dose: 650 mg Al Hydroxide/Mg Hydroxide (Magnesium Hydrox/Alum Hydrox 30 Ml Oral.Susp) 30 ml PO Q6H PRN PRN Reason: Heartburn/Nausea Clonidine HCl (Clonidine Hcl 0.1 Mg Tablet) 0.1 mg PO Q4H PRN; Protocol PRN Reason: withdrawal/anxiety Cyclobenzaprine HCl (Cyclobenzaprine Hcl 10 Mg Tablet) 10 mg PO TID PRN PRN Reason: muscle aches Last Admin: 09/17/23 08:50 Dose: 10 mg Dicyclomine HCl (Dicyclomine Hcl 10 Mg Capsule) 10 mg PO TID PRN PRN Reason: stomach cramps Folic Acid (Folic Acid 1 Mg Tablet) 1 mg PO DAILY [facility] Last Admin: 09/20/23 08:52 Dose: 1 mg Hydroxyzine HCl (Hydroxyzine Hcl 25 Mg Tablet) 25 mg PO Q6H PRN PRN Reason: Anxiety Last Admin: 09/20/23 10:51 Dose: 25 mg Hydroxyzine HCl (Hydroxyzine Hcl 25 Mg Tablet) 25 mg PO Q8H PRN PRN Reason: anxiety/restlessness Loperamide HCl (Loperamide Hcl 2 Mg Capsule) 2 mg PO Q6H PRN PRN Reason: loose stool Magnesium Hydroxide (Milk Of Magnesia 30 Ml Oral.Susp) 30 ml PO DAILY PRN PRN Reason: Constipation Methadone HCl (Methadone Hcl 20 Mg/2 Ml Oral.Conc) 30 mg PO DAILY [facility] Last Admin: 09/20/23 08:53 Dose: 30 mg Mirtazapine (Mirtazapine 15 Mg Tablet) 15 mg PO BEDTIME [facility] Nicotine (Nicotine 21 Mg Patch.Td24) 21 mg TRANSDERMA DAILY PRN PRN Reason: smoking cessation Nicotine Polacrilex (Nicotine Polacrilex 2 Mg Gum) 4 mg BUCCAL Q2H PRN PRN Reason: Nicotine Cravings Olanzapine (Olanzapine 5 Mg Tablet) 5 mg PO TID PRN PRN Reason: agitation Thiamine HCl (Thiamine Hcl 100 Mg Tablet) 100 mg PO DAILY [facility] Last Admin: 09/20/23 08:52 Dose: 100 mg Trazodone HCl (Trazodone Hcl 50 Mg Tablet) 50 mg PO BEDTIME MRX1 PRN PRN Reason: Insomnia Allergies Allergies Allergy/AdvReac Type Severity Reaction Status Date / Time seafood Allergy Severe Anaphylaxis Verified 10/22/20 22:18 Assessment & Plan Assessment & Plan (1) Mood disorder: Status: Acute Code(s): F39 - Unspecified mood [affective] disorder (2) Opioid use disorder: Status: Acute Code(s): F11.90 - Opioid use, unspecified, uncomplicated (3) Cocaine use disorder: Status: Acute Code(s): F14.10 - Cocaine abuse, uncomplicated (4) Cannabis use disorder: Status: Acute Code(s): F12.90 - Cannabis use, unspecified, uncomplicated Plan 09/17: supportive care for withdrawal Sx. once pt is able to engage more with treaters, assess for services/meds which may be of help to pt. 09/18: irritable. says he only had methadone twice but wants to be on methadone maintenance. ordered methadone 30 mg daily and addiction consult. otherwi 09/19/23: Continue current regimen and plans 09/20/2023: Continue current regimen and plans Patient educated on: medication risk/benefits Reason for continued inpatient stay Substantial Risk for: med/psych decompensation Time Spent With Patient Time: Total time managing care of this patient today ____ minutes.
[2023-09-20] MEDS: Mirtazapine 15 MG TABLET PO (20:19)
[2023-09-21 07:45] VITALS: BP 142/81; PULSE 111; RESP 16; TEMP 36.7; O2SAT 97
[2023-09-21] MEDS: Thiamine HCL 100 MG TABLET PO (08:59)
[2023-09-21] MEDS: Folic Acid 1 MG TABLET PO (08:59)
[2023-09-21] MEDS: methADONE HCl 20 MG/2 ML ORAL.CONC 30 MG PO (08:59)
--- NOTE | 2023-09-21 12:13 | P.EN_ITS ---
Event Note Date of Service: 09/21/23 Event Note: Addiction note Addiction consult placed for patient with OUD currently admitted to unit Attending initiated methadone 30mg daily on Thursday, 09/18. Seen by enterprise project manager on Thursday, 09/19. Declining to engage in any discussion. No c/o of withdrawal reported to nursing staff. -please reconsult if needed. Time Spent With Patient Time: Total time managing care of this patient today ____ minutes.
--- NOTE | 2023-09-21 14:24 | P.PNPSI_ITS ---
Subjective Subjective Date of Service: 09/21/23 Reason For Visit: Depression Interim History: met with patient; discussed with team; reviewed chart pt lying on bed, awake and alert; on approach pt did not answer narrative writer. On re- inquiry, pt says what do you want? Asking how he's doing Fine and then no to discuss anything, meds...refuses to engage further. STaff reports withdrawn, no groups, often in room; compliant with meds Mental Status Exam Mental Status Exam Narrative: Pt is alert and oriented; behavior is Uncooperative; calm; patient is not in distress; dressed in casual attire with unkempt hair; mood is described as fine and affect irritable and constricted; eye contact avoidant; Speech is normal rate, volume and prosody and not pressured; psychomotor retardation present; thought process goal directed; Thought content kept private; otherwise pertinent to relevant topics; no delusional content expressed; no SI/HI expressed. There is no evidence of perceptual disturbance. Patients insight and judgment impaired. Diagnostics Vital Signs (24Hr): Vital Signs - 24 hr 09/21/23 07:45 Temperature 98.1 F Pulse Rate 111 H Respiratory Rate 16 Blood Pressure 142/81 H Pulse Oximetry 97 Oxygen Delivery Method Room Air BMI result Body Mass Index 23.0 Medications Medications Current Medications Acetaminophen (Acetaminophen 325 Mg Tablet) 650 mg PO Q6H PRN PRN Reason: Headache/Pain Mild Scale (1-3) Last Admin: 09/19/23 09:34 Dose: 650 mg Al Hydroxide/Mg Hydroxide (Magnesium Hydrox/Alum Hydrox 30 Ml Oral.Susp) 30 ml PO Q6H PRN PRN Reason: Heartburn/Nausea Clonidine HCl (Clonidine Hcl 0.1 Mg Tablet) 0.1 mg PO Q4H PRN; Protocol PRN Reason: withdrawal/anxiety Cyclobenzaprine HCl (Cyclobenzaprine Hcl 10 Mg Tablet) 10 mg PO TID PRN PRN Reason: muscle aches Last Admin: 09/17/23 08:50 Dose: 10 mg Dicyclomine HCl (Dicyclomine Hcl 10 Mg Capsule) 10 mg PO TID PRN PRN Reason: stomach cramps Folic Acid (Folic Acid 1 Mg Tablet) 1 mg PO DAILY RHONDA Last Admin: 09/21/23 08:59 Dose: 1 mg Hydroxyzine HCl (Hydroxyzine Hcl 25 Mg Tablet) 25 mg PO Q6H PRN PRN Reason: Anxiety Last Admin: 09/20/23 10:51 Dose: 25 mg Loperamide HCl (Loperamide Hcl 2 Mg Capsule) 2 mg PO Q6H PRN PRN Reason: loose stool Magnesium Hydroxide (Milk Of Magnesia 30 Ml Oral.Susp) 30 ml PO DAILY PRN PRN Reason: Constipation Methadone HCl (Methadone Hcl 20 Mg/2 Ml Oral.Conc) 30 mg PO DAILY [facility] Last Admin: 09/21/23 08:59 Dose: 30 mg Mirtazapine (Mirtazapine 15 Mg Tablet) 15 mg PO BEDTIME [facility] Last Admin: 09/20/23 20:19 Dose: 15 mg Nicotine (Nicotine 21 Mg Patch.Td24) 21 mg TRANSDERMA DAILY PRN PRN Reason: smoking cessation Nicotine Polacrilex (Nicotine Polacrilex 2 Mg Gum) 4 mg BUCCAL Q2H PRN PRN Reason: Nicotine Cravings Olanzapine (Olanzapine 5 Mg Tablet) 5 mg PO TID PRN PRN Reason: agitation Thiamine HCl (Thiamine Hcl 100 Mg Tablet) 100 mg PO DAILY [facility] Last Admin: 09/21/23 08:59 Dose: 100 mg Trazodone HCl (Trazodone Hcl 50 Mg Tablet) 50 mg PO BEDTIME MRX1 PRN PRN Reason: Insomnia Allergies Allergies Allergy/AdvReac Type Severity Reaction Status Date / Time seafood Allergy Severe Anaphylaxis Verified 10/22/20 22:18 Assessment & Plan Assessment & Plan (1) Mood disorder: Status: Acute Code(s): F39 - Unspecified mood [affective] disorder (2) Opioid use disorder: Status: Acute Code(s): F11.90 - Opioid use, unspecified, uncomplicated (3) Cocaine use disorder: Status: Acute Code(s): F14.10 - Cocaine abuse, uncomplicated (4) Cannabis use disorder: Status: Acute Code(s): F12.90 - Cannabis use, unspecified, uncomplicated Plan 09/17: supportive care for withdrawal Sx. once pt is able to engage more with treaters, assess for services/meds which may be of help to pt. 09/18: irritable. says he only had methadone twice but wants to be on methadone maintenance. ordered methadone 30 mg daily and addiction consult. otherwi 09/19/23: Continue current regimen and plans 09/20/2023: Continue current regimen and plans 09/21 pt refuses to engage; irritable, isolative -continue current tx plan (past admisison, pt also on Zyrexa 10mg qhs, but refuses to discuss treatment at this time) Patient educated on: diagnosis Informed Consent: further education needed Reason for continued inpatient stay Substantial Risk for: rapid decompensation Time Spent With Patient Time: Total time managing care of this patient today ____ minutes.
--- NOTE | 2023-09-21 15:24 | P.PNPSI_ITS ---
Subjective Subjective Reason For Visit: Depression Diagnostics Vital Signs (24Hr): Vital Signs - 24 hr 09/21/23 07:45 Temperature 98.1 F Pulse Rate 111 H Respiratory Rate 16 Blood Pressure 142/81 H Pulse Oximetry 97 Oxygen Delivery Method Room Air BMI result Body Mass Index 23.0 Medications Medications Current Medications Acetaminophen (Acetaminophen 325 Mg Tablet) 650 mg PO Q6H PRN PRN Reason: Headache/Pain Mild Scale (1-3) Last Admin: 09/19/23 09:34 Dose: 650 mg Al Hydroxide/Mg Hydroxide (Magnesium Hydrox/Alum Hydrox 30 Ml Oral.Susp) 30 ml PO Q6H PRN PRN Reason: Heartburn/Nausea Clonidine HCl (Clonidine Hcl 0.1 Mg Tablet) 0.1 mg PO Q4H PRN; Protocol PRN Reason: withdrawal/anxiety Cyclobenzaprine HCl (Cyclobenzaprine Hcl 10 Mg Tablet) 10 mg PO TID PRN PRN Reason: muscle aches Last Admin: 09/17/23 08:50 Dose: 10 mg Dicyclomine HCl (Dicyclomine Hcl 10 Mg Capsule) 10 mg PO TID PRN PRN Reason: stomach cramps Folic Acid (Folic Acid 1 Mg Tablet) 1 mg PO DAILY [facility] Last Admin: 09/21/23 08:59 Dose: 1 mg Hydroxyzine HCl (Hydroxyzine Hcl 25 Mg Tablet) 25 mg PO Q6H PRN PRN Reason: Anxiety Last Admin: 09/20/23 10:51 Dose: 25 mg Loperamide HCl (Loperamide Hcl 2 Mg Capsule) 2 mg PO Q6H PRN PRN Reason: loose stool Magnesium Hydroxide (Milk Of Magnesia 30 Ml Oral.Susp) 30 ml PO DAILY PRN PRN Reason: Constipation Methadone HCl (Methadone Hcl 20 Mg/2 Ml Oral.Conc) 30 mg PO DAILY [facility] Last Admin: 09/21/23 08:59 Dose: 30 mg Mirtazapine (Mirtazapine 15 Mg Tablet) 15 mg PO BEDTIME [facility] Last Admin: 09/20/23 20:19 Dose: 15 mg Nicotine (Nicotine 21 Mg Patch.Td24) 21 mg TRANSDERMA DAILY PRN PRN Reason: smoking cessation Nicotine Polacrilex (Nicotine Polacrilex 2 Mg Gum) 4 mg BUCCAL Q2H PRN PRN Reason: Nicotine Cravings Olanzapine (Olanzapine 5 Mg Tablet) 5 mg PO TID PRN PRN Reason: agitation Thiamine HCl (Thiamine Hcl 100 Mg Tablet) 100 mg PO DAILY RHONDA Last Admin: 09/21/23 08:59 Dose: 100 mg Trazodone HCl (Trazodone Hcl 50 Mg Tablet) 50 mg PO BEDTIME MRX1 PRN PRN Reason: Insomnia Allergies Allergies Allergy/AdvReac Type Severity Reaction Status Date / Time seafood Allergy Severe Anaphylaxis Verified 10/22/20 22:18 Assessment & Plan Assessment & Plan (1) Mood disorder: Status: Acute Code(s): F39 - Unspecified mood [affective] disorder (2) Opioid use disorder: Status: Acute Code(s): F11.90 - Opioid use, unspecified, uncomplicated (3) Cocaine use disorder: Status: Acute Code(s): F14.10 - Cocaine abuse, uncomplicated (4) Cannabis use disorder: Status: Acute Code(s): F12.90 - Cannabis use, unspecified, uncomplicated Plan 09/17: supportive care for withdrawal Sx. once pt is able to engage more with treaters, assess for services/meds which may be of help to pt. 09/18: irritable. says he only had methadone twice but wants to be on methadone maintenance. ordered methadone 30 mg daily and addiction consult. otherwi 09/19/23: Continue current regimen and plans 09/20/2023: Continue current regimen and plans 09/21 pt refuses to engage; irritable, isolative -continue current tx plan (past admisison, pt also on Zyrexa 10mg qhs, but refuses to discuss treatment at this time) Time Spent With Patient Time: Total time managing care of this patient today ____ minutes.
[2023-09-21 21:00] VITALS: BP 138/70; PULSE 90; RESP 16; O2SAT 97
[2023-09-21] MEDS: Mirtazapine 15 MG TABLET PO (22:08)
[2023-09-22] MEDS: methADONE HCl 20 MG/2 ML ORAL.CONC 30 MG PO (09:16)
[2023-09-22] MEDS: Thiamine HCL 100 MG TABLET PO (09:17)
[2023-09-22] MEDS: Folic Acid 1 MG TABLET PO (09:17)
[2023-09-22 10:50] VITALS: BP 143/92; PULSE 108; RESP 16; TEMP 36.8; O2SAT 94
--- NOTE | 2023-09-22 10:50 | PM.PSYDC ---
DS: Providers Provider Date of admission: 09/16/23 20:56 Primary care physician: None Physician Consults: 09/16/23 21:17 Consult to Hospitalist Routine Comment: Consulting Provider: Hospitalist Reason For Exam: hospital to hospital transfer 09/16/23 21:24 Consult to Hospitalist Routine Comment: Consulting Provider: Hospitalist Reason For Exam: admission physical 09/18/23 11:34 Addiction Medicine Routine Consulting Provider: Addiction Covering Reason for consultation: opioid dep. wants to start methadone maintenance Has provider been notified: No DS: Diagnosis Discharge Diagnosis (1) Mood disorder: Status: Acute (2) Opioid use disorder: Status: Acute (3) Cocaine use disorder: Status: Acute (4) Cannabis use disorder: Status: Acute DS: Medications Discharge Medications Home Medications: Previous Rx's Medication Instructions Recorded folic acid 1 mg tablet 1 mg PO DAILY #30 tabs 02/03/23 loratadine 10 mg tablet 10 mg PO DAILY #30 tabs 02/03/23 methadone 10 mg/mL oral 20 mg (2 mL) PO DAILY #0 mL 02/03/23 concentrate (Methadose) mirtazapine 7.5 mg tablet 7.5 mg PO BEDTIME #30 tabs 02/03/23 multivitamin (Daily-Mirian tablet) 1 tab PO DAILY #30 tabs 02/03/23 olanzapine 10 mg tablet 10 mg PO BEDTIME #30 tabs 02/03/23 thiamine mononitrate (vit B1) 100 100 mg PO DAILY #30 tabs 02/03/23 mg tablet DS: Summary Time Spent with Patient Time attestation: Total time managing care of this patient today ____ minutes. Discharge Plan Discharge Referrals: Physician,None [Primary Care Provider] - 1 Week Discharge Medications: No Action multivitamin [Daily-Mirian] Tablet 1 tab PO DAILY Qty: 30 0RF olanzapine 10 mg Tablet 10 mg PO BEDTIME Qty: 30 0RF folic acid 1 mg Tablet 1 mg PO DAILY Qty: 30 0RF methadone [Methadose] 10 mg/mL Concentrate 20 mg PO DAILY Qty: 0 0RF Rx Instructions: Partial Fill upon patient request. loratadine 10 mg Tablet 10 mg PO DAILY Qty: 30 0RF mirtazapine 7.5 mg Tablet 7.5 mg PO BEDTIME Qty: 30 0RF thiamine mononitrate (vit B1) 100 mg Tablet 100 mg PO DAILY Qty: 30 0RF
[2023-09-22] MEDS: cloNIDine HCL 0.1 MG TABLET PO (10:53)
--- NOTE | 2023-09-22 11:52 | P.PNPSI_ITS ---
Subjective Subjective Date of Service: 09/22/23 Reason For Visit: Depression Interim History: met with Patient; discussed with team Patient irritable. Patient said he heard he was to be discharged tomorrow and thus there was no point in talking. Director Of Outreach said this was not necessarily so, b ut that patient has been refusing to talk with sql report writer, not going to groups and will not discuss treatment. Director Of Outreach asked if patient would sit down now and talk, explain what had been going on, how he is feeling... Patient remained irritable and repeated there is nothing to talk about, I am discharging tomorrow so there is nothing to talk about... Director Of Outreach reiterated desire to talk about his treatment and to see what his needs are but patient did not want to discuss and walked away. Patient also declined to talk with social sciences lecturer earlier in the day. Mental Status Exam Mental Status Exam Narrative: Pt is alert and oriented; behavior is Uncooperative; calm; patient is not in dis tress; dressed in casual attire with unkempt hair; mood is described as irritable and affect constricted; eye contact appropriate; Speech is normal rate, volume and prosody and not pressured; no psychomotor present; thought process goal directed; Thought content on discharge; otherwise pertinent to relevant topics; no delusional content expressed; no SI/HI expressed. There is no evidence of perceptual disturbance. Patients insight and judgment impaired. Diagnostics Vital Signs (24Hr): Vital Signs - 24 hr 09/21/23 21:00 09/22/23 10:50 Temperature 98.2 F Pulse Rate 90 108 H Respiratory Rate 16 16 Blood Pressure 138/70 143/92 H Pulse Oximetry 97 94 Oxygen Delivery Method Room Air BMI result Body Mass Index 23.0 Medications Medications Current Medications Acetaminophen (Acetaminophen 325 Mg Tablet) 650 mg PO Q6H PRN PRN Reason: Headache/Pain Mild Scale (1-3) Last Admin: 09/19/23 09:34 Dose: 650 mg Al Hydroxide/Mg Hydroxide (Magnesium Hydrox/Alum Hydrox 30 Ml Oral.Susp) 30 ml PO Q6H PRN PRN Reason: Heartburn/Nausea Clonidine HCl (Clonidine Hcl 0.1 Mg Tablet) 0.1 mg PO Q4H PRN; Protocol PRN Reason: withdrawal/anxiety Last Admin: 09/22/23 10:53 Dose: 0.1 mg Cyclobenzaprine HCl (Cyclobenzaprine Hcl 10 Mg Tablet) 10 mg PO TID PRN PRN Reason: muscle aches Last Admin: 09/17/23 08:50 Dose: 10 mg Dicyclomine HCl (Dicyclomine Hcl 10 Mg Capsule) 10 mg PO TID PRN PRN Reason: stomach cramps Folic Acid (Folic Acid 1 Mg Tablet) 1 mg PO DAILY [facility] Last Admin: 09/22/23 09:17 Dose: 1 mg Hydroxyzine HCl (Hydroxyzine Hcl 25 Mg Tablet) 25 mg PO Q6H PRN PRN Reason: Anxiety Last Admin: 09/20/23 10:51 Dose: 25 mg Loperamide HCl (Loperamide Hcl 2 Mg Capsule) 2 mg PO Q6H PRN PRN Reason: loose stool Magnesium Hydroxide (Milk Of Magnesia 30 Ml Oral.Susp) 30 ml PO DAILY PRN PRN Reason: Constipation Methadone HCl (Methadone Hcl 20 Mg/2 Ml Oral.Conc) 30 mg PO DAILY [facility] Last Admin: 09/22/23 09:16 Dose: 30 mg Mirtazapine (Mirtazapine 15 Mg Tablet) 15 mg PO BEDTIME [facility] Last Admin: 09/21/23 22:08 Dose: 15 mg Nicotine (Nicotine 21 Mg Patch.Td24) 21 mg TRANSDERMA DAILY PRN PRN Reason: smoking cessation Nicotine Polacrilex (Nicotine Polacrilex 2 Mg Gum) 4 mg BUCCAL Q2H PRN PRN Reason: Nicotine Cravings Olanzapine (Olanzapine 5 Mg Tablet) 5 mg PO TID PRN PRN Reason: agitation Thiamine HCl (Thiamine Hcl 100 Mg Tablet) 100 mg PO DAILY [facility] Last Admin: 09/22/23 09:17 Dose: 100 mg Trazodone HCl (Trazodone Hcl 50 Mg Tablet) 50 mg PO BEDTIME MRX1 PRN PRN Reason: Insomnia Allergies Allergies Allergy/AdvReac Type Severity Reaction Status Date / Time seafood Allergy Severe Anaphylaxis Verified 10/22/20 22:18 Assessment & Plan Assessment & Plan (1) Mood disorder: Status: Acute Code(s): F39 - Unspecified mood [affective] disorder (2) Opioid use disorder: Status: Acute Code(s): F11.90 - Opioid use, unspecified, uncomplicated (3) Cocaine use disorder: Status: Acute Code(s): F14.10 - Cocaine abuse, uncomplicated (4) Cannabis use disorder: Status: Acute Code(s): F12.90 - Cannabis use, unspecified, uncomplicated Plan 09/17: supportive care for withdrawal Sx. once pt is able to engage more with treaters, assess for services/meds which may be of help to pt. 09/18: irritable. says he only had methadone twice but wants to be on methadone maintenance. ordered methadone 30 mg daily and addiction consult. otherwi 09/19/23: Continue current regimen and plans 09/20/2023: Continue current regimen and plans 09/21 pt refuses to engage; irritable, isolative -continue current tx plan (past admisison, pt also on Zyrexa 10mg qhs, but refuses to discuss treatment at this time) 09/22 Patient irritable. Patient said he heard he was to be discharged tomorrow and thus there was no point in talking. Director Of Outreach said this was not necessarily so, but that patient has been refusing to talk with sql report writer, not going to groups and will not discuss treatment. Director Of Outreach asked if patient would sit down now and talk, explain what had been going on, how he is feeling... Patient remained irritable and repeated there is nothing to talk about, I am discharging tomorrow so there is nothing to talk about... Director Of Outreach reiterated desire to talk about his treatment and to see what his needs are but patient did not want to discuss and walked away. Patient also declined to talk with social sciences lecturer earlier in the day. -continue current medication regimen; patient has been refusing to engage, does not want to talk about treatment with sql report writer, not going to groups... Seems irritable about potential discharge tomorrow but not asking to stay either. Patient educated on: diagnosis and medication risk/benefits Informed Consent: further education needed Reason for continued inpatient stay Substantial Risk for: med/psych decompensation Time Spent With Patient Time: Total time managing care of this patient today ____ minutes.
[2023-09-23 07:45] VITALS: BP 114/76; PULSE 84; RESP 16; TEMP 37.1; O2SAT 95
[2023-09-23] MEDS: Thiamine HCL 100 MG TABLET PO (08:05)
[2023-09-23] MEDS: methADONE HCl 20 MG/2 ML ORAL.CONC 30 MG PO (08:05)
[2023-09-23] MEDS: Folic Acid 1 MG TABLET PO (08:06)
[2023-09-23] MEDS: OLANZapine 5 MG TABLET PO (08:06)
[2023-09-23] MEDS: hydrOXYzine HCL 25 MG TABLET PO (11:59)
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
[2023-09-24] MEDS: Thiamine HCL 100 MG TABLET PO (09:14)
[2023-09-24] MEDS: Folic Acid 1 MG TABLET PO (09:14)
[2023-09-24] MEDS: methADONE HCl 20 MG/2 ML ORAL.CONC 30 MG PO (09:15)
== END 2023-09-24 11:40 | disposition home or self-care (01) | DRG 753 ==
PROVIDERS: Admitting Provider Psychiatry & Neurology Psychiatry; Visit Provider Psychiatry & Neurology Psychiatry
DX: F39 Unspecified mood [affective] disorder (principal); R45.851 Suicidal ideations; F14.10 Cocaine abuse, uncomplicated; F11.20 Opioid dependence, uncomplicated; Z87.891 Personal history of nicotine dependence; Z79.899 Other long term (current) drug therapy

== ENCOUNTER → 2023-09-16 20:56 | Outpatient (BNV) | payer OTHER, SELFPAY | PROVIDERS: Admitting Provider Psychiatry & Neurology Psychiatry; Visit Provider Psychiatry & Neurology Psychiatry | DX: F39 Unspecified mood [affective] disorder (principal); F14.10 Cocaine abuse, uncomplicated; F11.90 Opioid use, unspecified, uncomplicated; F12.90 Cannabis use, unspecified, uncomplicated | CPT/HCPCS: 99231; 99232; 99499 ==

== ENCOUNTER → 2023-09-16 20:56 | Outpatient (BNV) | payer MEDICAID, SELFPAY | PROVIDERS: Admitting Provider Psychiatry & Neurology Psychiatry; Visit Provider Internal Medicine | DX: F11.90 Opioid use, unspecified, uncomplicated (principal); F12.90 Cannabis use, unspecified, uncomplicated; F14.10 Cocaine abuse, uncomplicated; Z53.29 Procedure and treatment not carried out because of patient's decision for other reasons | CPT/HCPCS: 99429 ==